=== PATIENT | male | born 1960 | race Caucasian/White ===

== ENCOUNTER → 2021-07-18 11:13 | Outpatient (CLI) | payer OTHER, SELFPAY ==
[2021-07-18 12:39] LABS: Absolute Lymphocyte Count 2.47 X10^3/uL (0.83-4.51); Basophil# 0.04 X10^3/uL; Basophil% 0.5 % (0-1); Eosinophil# 0.39 X10^3/uL; Eosinophils% 5.3 % (0-5); Hematocrit 41.4 % (40-54); Hemoglobin 13.5 g/dL (13.0-16.5); Lymphocyte # 2.47 X10^3/ul (0.83-4.51); Lymphocyte % 33.4 % (19-41); Mean Corp Hgb Conc 32.6 g/dL (32-36); Mean Corpuscular Hgb 30.4 pg (27.0-32.0); Mean Corpuscular Volume 93.2 fL (80-94); Mean Platelet Vol. 10.4 fl (6.2-12.0); Monocyte# 0.47 X10^3/uL; Monocyte% 6.4 % (0-10); NRBC Flagged by Analyzer 0 % (0-5); Platelet Count 290 K/mm3 (150-450); RBC Distribution Width CV 12.5 % (11.6-14.6); RBC Distribution Width SD 43.1 fl (35.1-43.9); Red Blood Count 4.44 M/mm3 (4.6-6.2); White Blood Count 7.4 K/mm3 (4.4-11.0)
[2021-07-18 13:04] LABS: Vitamin D,25 Hydroxy 22.2 ng/mL
[2021-07-18 13:13] LABS: AST(SGOT) 22 U/L (15-37); Alanine Aminotransfer ALT/SGPT 31 U/L (16-61); Albumin, Serum 3.8 g/dL (3.2-5.0); Alkaline Phosphatase 40 U/L (45-117); Anion Gap 7 (5-15); BUN 19 mg/dL (7-18); BUN/Creat Ratio 18.3 RATIO (10-20); Calcium,Total 9.4 mg/dL (8.5-10.1); Chloride 107 mmol/L (98-107); Cholesterol 234 mg/dL (200); Creatinine, Serum 1.04 mg/dL (0.70-1.30); EST Glomerular Filtration Rate 78 mL/min (>60); Est Glom Filt Rate - Afr Amer 94 mL/min (>60); Free T3 2.8 pg/mL (2.18-3.98); Globulin 3.8 g/dL (2.2-4.2); Glucose 83 mg/dL (74-106); High Density Lipoprotein 53 mg/dL; PSA,Total - Annual Screen 1.45 ng/mL (0.00-4.00); Potassium 4.1 mmol/L (3.5-5.1); Protein, Total 7.6 g/dL (6.4-8.2); Sodium Level 142 mmol/L (136-145); T4 Free Direct 0.91 ng/dL (0.76-1.46); Triglycerides 155 mg/dL; Very Low Density Lipoprotein 31 mg/dL (5-40)
[2021-07-18 13:29] LABS: Hemoglobin A1c 6.1 % (3.8-5.6)
== END ==
PROVIDERS: PCP Internal Medicine; Referring Provider Internal Medicine; Visit Provider Internal Medicine
DX: E55.9 Vitamin D deficiency, unspecified (principal); E04.9 Nontoxic goiter, unspecified; E78.1 Pure hyperglyceridemia; E78.5 Hyperlipidemia, unspecified; I10 Essential (primary) hypertension; Z12.5 Encounter for screening for malignant neoplasm of prostate
CPT/HCPCS: 36415; 80053; 80061; 82306; 83036; 84153; 84439; 84443; 84481; 85025; G0103

== ENCOUNTER → 2021-08-13 07:30 | Outpatient (CLI) | payer OTHER, SELFPAY ==
--- NOTE | 2021-08-13 07:31 | US_ITS ---
STUDY: THYROID ULTRASOUND REASON FOR EXAM: Male, 61 years old. Right thyroid enlargement TECHNIQUE: Ultrasound evaluation of the thyroid was performed with real-time and static hernandez-scale imaging. COMPARISON: None. FINDINGS: RIGHT LOBE: The right lobe of the thyroid gland measures 5.5 x 4.8 x 3.7 cm. There is a heterogeneous echotexture. Nodule 1:51 x 30 x 45 mm solid isoechoic water than tall ill-defined marginated nodule with no echogenic foci (TR 3) throughout the right lobe and ultrasound-guided biopsy is recommended. LEFT LOBE: The left lobe of the thyroid gland measures 5.2 x 1.7 x 1.4 cm. There is a heterogeneous echotexture. Nodule 2:6 x 9 x 6 mm solid hypoechoic wider than tall ill-defined marginated nodule with no echogenic foci (TR 4) in the lateral left lobe consistent with an adenoma. Nodule 3:10 x 5 x 6 mm solid hypoechoic wider than tall ill-defined margin nodule in no echogenic foci (TR 4) in the inferior left lobe and follow-up ultrasound is recommended in one year. ISTHMUS: The isthmus measures 8 mm thick. . The regional lymph nodes are normal. US/Thyroid IMPRESSION: Thyroiditis with a 51 mm dominant nodule right lobe for which ultrasound-guided biopsy is recommended. Follow-up ultrasound is recommended one year as well. Electronically Signed: Bharath Villagran MD at 8:27 EDT Tel , Service support ,
== END ==
PROVIDERS: PCP Internal Medicine; Referring Provider Internal Medicine; Visit Provider Internal Medicine
DX: E04.9 Nontoxic goiter, unspecified (principal); E78.5 Hyperlipidemia, unspecified; I10 Essential (primary) hypertension
CPT/HCPCS: 76536

== ENCOUNTER → 2021-09-19 16:36 | Outpatient (CLI) | payer OTHER, SELFPAY ==
--- NOTE | 2021-09-19 | ASPS_PTH ---
PATIENT: MIGUELANGEL GALLAGHER LOC: [facility] U#:[id number] AGE/SX: 65/M ROOM: RE09/19/[address]: Dr. Arden Alvares MD : 1960 BED: DIS: SPEC #: [id number] RECD: 09/19/21 16:18 STATUS: SEBASTIÁN PEREZ #: [id number] DANIAL: 09/19/21 00:[address]: Arden Alvares DEPT: CYTOLOGY RECD BY: Alonso Diamond ENTERED: 09/20/21 08:51 SP TYPE: ASPIRATION OTHR DR: Dr. Aminata Sams MD Tissues: Thyroid gland, NOS Procedures: Special Stain Group II Cytology Other HEADER OPERATION: Right thyroid fine needle aspiration PRE-OP DIAGNOSIS: Right thyroid nodules TISSUE SUBMITTED: Right thyroid slides DIAGNOSIS CYTOLOGY Right thyroid nodule, FNA (smears): Consistent with benign follicular/colloid nodule. Adequate for evaluation. See comment. SJ:maria del carmen 09/21/2021 COMMENT Correlation with clinical, radiologic findings and appropriate follow up are necessary. CYTOLOGY STUDY Slides are reviewed. CYTOLOGY GROSS Received are eight smears labeled with the patient's name and designated per the requisition as right thyroid nodule. Submitted for staining. / maria del carmen 09/20/2021 TC:5 CPT: 12728
== END ==
PROVIDERS: PCP Internal Medicine; Visit Provider Surgery
DX: E04.2 Nontoxic multinodular goiter (principal)
CPT/HCPCS: 88161; 88313

== ENCOUNTER → 2021-10-16 06:22 | Outpatient (CLI) | payer OTHER, SELFPAY ==
--- NOTE | 2021-10-16 12:43 | STRESSREP_ITS ---
Stress Test Report Exercise myocardial perfusion stress test. Preoperative cardiac evaluation 61-year-old man. Medications hydrochlorothiazide losartan fenofibrate simvastatin. Stress protocol: Resting EKG demonstrates normal sinus rhythm with a rate of 63 bpm normal intervals are noted resting blood pressure is 152/92 mmHg. The patient exercised according to regular Tom protocol for total duration of 6 minutes. The maximum heart rate attained was 203 bpm which appeared to be a short run of supraventricular tachycardia. Patient reverted back into sinus rhythm with sinus tachycardia. At rest there were no ST or T wave changes noted suggest ischemia and at peak exercise upsloping ST changes were noted with did not meet the criteria for ischemia. No clinical angina was noted. The peak blood pressure was 240/98 mmHg which was a hypertensive response to exercise. Rate- pressure product was 33,200. Myocardial perfusion protocol. 13.6 mCi of technetium 99m sestamibi was injected at rest. Patient exercised according to regular Tom protocol for 6 minutes and at peak exercise 44.2 mCi of technetium 99m sestamibi was injected stress images were obtained stress and rest images were reconstructed and compared in the short axis vertical long and horizontal long axis. Gated images were also obtained. Perfusion SPECT analysis: Review of the stress images demonstrate normal uptake of tracer noted in all areas of the myocardium. The resting images similarly demonstrate normal uptake of tracer noted in all areas of the myocardium. No areas of reversibility are noted to suggest ischemia and no previous infarct is noted. Gated SPECT analysis: The gated ejection fraction is 55%. Conclusion: Normal exercise myocardial perfusion stress test at a moderate workload. Preserved ejection fraction.
== END ==
PROVIDERS: PCP Internal Medicine; Referring Provider Internal Medicine; Visit Provider Internal Medicine
DX: Z01.810 Encounter for preprocedural cardiovascular examination (principal); E78.5 Hyperlipidemia, unspecified; I10 Essential (primary) hypertension; E78.1 Pure hyperglyceridemia
CPT/HCPCS: 78452; 93017; A9500; A4216

== ENCOUNTER → 2023-04-18 | Outpatient (CLI) | payer OTHER, SELFPAY ==
[2023-04-18 08:41] LABS: Absolute Lymphocyte Count 2.37 X10^3/uL (0.83-4.51); Absolute Neutrophil Count 4.4 X10^3/uL (2.0-7.7); Basophil# 0.04 X10^3/uL; Basophil% 0.5 % (0-1); Eosinophil# 0.32 X10^3/uL; Eosinophils% 4.2 % (0-5); Hematocrit 41.4 % (40-54); Hemoglobin 13.9 g/dL (13.0-16.5); Lymphocyte # 2.37 X10^3/ul (0.83-4.51); Lymphocyte % 30.9 % (19-41); Mean Corp Hgb Conc 33.6 g/dL (32-36); Mean Corpuscular Hgb 30.6 pg (27.0-32.0); Mean Corpuscular Volume 91.2 fL (80-94); Monocyte# 0.52 X10^3/uL; Monocyte% 6.8 % (0-10); NRBC Flagged by Analyzer 0 % (0-5); Neutrophil # 4.38 X10^3/uL (2.7-7.7); Neutrophil % 57.2 % (47-70); Platelet Count 269 K/mm3 (150-450); RBC Distribution Width CV 12.6 % (11.6-14.6); RBC Distribution Width SD 41.7 fl (35.1-43.9); Red Blood Count 4.54 M/mm3 (4.6-6.2); White Blood Count 7.7 K/mm3 (4.4-11.0)
[2023-04-18 09:22] LABS: ALB/GLOB Ratio 1.1 RATIO (0.9-2.4); AST(SGOT) 24 U/L (15-37); Alanine Aminotransfer ALT/SGPT 29 U/L (16-61); Albumin, Serum 3.7 g/dL (3.2-5.0); Alkaline Phosphatase 38 U/L (45-117); Anion Gap 4 (5-15); BUN 17 mg/dL (7-18); BUN/Creat Ratio 15.2 RATIO (10-20); Chloride 107 mmol/L (98-107); Cholesterol 178 mg/dL (200); Creatinine, Serum 1.12 mg/dL (0.70-1.30); EST Glomerular Filtration Rate 71 mL/min (>60); Est Glom Filt Rate - Afr Amer 86 mL/min (>60); Free T3 2.5 pg/mL (2.18-3.98); Globulin 3.4 g/dL (2.2-4.2); Glucose 104 mg/dL (74-106); High Density Lipoprotein 52 mg/dL; PSA,Total - Annual Screen 1.42 ng/mL (0.00-4.00); Potassium 3.6 mmol/L (3.5-5.1); Protein, Total 7.1 g/dL (6.4-8.2); Sodium Level 137 mmol/L (136-145); T4 Free Direct 0.92 ng/dL (0.76-1.46); Thyroid Stim Hormone (TSH) 1.54 uIU/mL (0.358-3.74); Triglycerides 107 mg/dL; Very Low Density Lipoprotein 21 mg/dL (5-40)
== END | disposition home or self-care (01) ==
PROVIDERS: PCP Internal Medicine; Referring Provider Internal Medicine; Visit Provider Internal Medicine
DX: I10 Essential (primary) hypertension (principal); E78.1 Pure hyperglyceridemia; E78.5 Hyperlipidemia, unspecified; Z13.220 Encounter for screening for lipoid disorders; E55.9 Vitamin D deficiency, unspecified; Z12.5 Encounter for screening for malignant neoplasm of prostate; E04.1 Nontoxic single thyroid nodule; R73.9 Hyperglycemia, unspecified
CPT/HCPCS: 36415; 80053; 80061; 82306; 83036; 83525; 84153; 84439; 84443; 84481; 85025; G0103

== ENCOUNTER → 2024-07-27 | Outpatient (CLI) | payer OTHER, SELFPAY ==
[2024-07-27 12:36] LABS: Absolute Lymphocyte Count 1.81 X10^3/uL (0.83-4.51); Absolute Neutrophil Count 4.9 X10^3/uL (2.0-7.7); Basophil# 0.04 X10^3/uL; Basophil% 0.5 % (0-1); Eosinophil# 0.31 X10^3/uL; Eosinophils% 4.1 % (0-5); Hematocrit 44.3 % (40-54); Hemoglobin 14.4 g/dL (13.0-16.5); Lymphocyte # 1.81 X10^3/ul (0.83-4.51); Lymphocyte % 24.2 % (19-41); Mean Corp Hgb Conc 32.5 g/dL (32-36); Mean Corpuscular Hgb 30.4 pg (27.0-32.0); Mean Corpuscular Volume 93.5 fL (80-94); Mean Platelet Vol. 10.7 fl (6.2-12.0); Monocyte# 0.44 X10^3/uL; Monocyte% 5.9 % (0-10); NRBC Flagged by Analyzer 0 % (0-5); Neutrophil # 4.87 X10^3/uL (2.7-7.7); Platelet Count 303 K/mm3 (150-450); RBC Distribution Width CV 12.3 % (11.6-14.6); RBC Distribution Width SD 42.7 fl (35.1-43.9); Red Blood Count 4.74 M/mm3 (4.6-6.2); White Blood Count 7.5 K/mm3 (4.4-11.0)
[2024-07-27 12:49] LABS: Vitamin B12 316 pg/mL (211-911); Vitamin D,25 Hydroxy 31.4 ng/mL
[2024-07-27 13:13] LABS: Cholesterol 189 mg/dL (200); Free T3 2.7 pg/mL (2.18-3.98); High Density Lipoprotein 56 mg/dL; PSA,Total - Annual Screen 1.46 ng/mL (0.00-4.00); Triglycerides 74 mg/dL; Very Low Density Lipoprotein 15 mg/dL (5-40)
[2024-08-05 15:08] LABS: Testosterone, % Free 2.13 % (1.50-4.20); Testosterone, Free 8.29 ng/dL (5.00-21.00); Testosterone, Total 389 ng/dL (264-916)
== END | disposition home or self-care (01) ==
LOC: BIMLAB 08:07
PROVIDERS: PCP Internal Medicine; Referring Provider Internal Medicine; Visit Provider Internal Medicine
DX: Z13.220 Encounter for screening for lipoid disorders (principal); I10 Essential (primary) hypertension; E78.5 Hyperlipidemia, unspecified; E88.810 Metabolic syndrome; E04.1 Nontoxic single thyroid nodule; F52.0 Hypoactive sexual desire disorder; E55.9 Vitamin D deficiency, unspecified; Z12.5 Encounter for screening for malignant neoplasm of prostate; E53.8 Deficiency of other specified B group vitamins
CPT/HCPCS: 36415; 80061; 82306; 82607; 83735; 84153; 84402; 84403; 84439; 84443; 84481; 85025; G0103

== ENCOUNTER → 2024-07-28 | Outpatient (CLI) | payer OTHER, SELFPAY ==
--- NOTE | 2024-07-28 16:31 | US_ITS ---
EXAM: US SOFT TISSUES HEAD AND NECK, THYROID CLINICAL INDICATION: Thyroid nodules. -- Please make comparison with prior thyroid ultrasou TECHNIQUE: Grayscale and color doppler imaging was performed of the thyroid gland. COMPARISON: 08/13/2021. FINDINGS: LEFT THYROID LOBE: Solid nodule measuring 0.7 x 0.7 x 0.6 cm in the superior aspect of the left lobe posteriorly is hypoechoic, taller than wide, irregular without echogenic foci. It appears larger than on the previous examination where it was measured at about 4 mm. Solid nodule measuring 1.2 x 0.6 x 0.5 cm mid left lobe of the thyroid laterally is isoechoic, wider than tall, smooth, without echogenic foci. Solid nodule measuring 1.1 x 0.7 x 0.7 cm inferior left lobe of the thyroid is solid, heterogeneous hypoechoic, wider than tall, smooth, without echogenic foci. It appears stable since the prior exam. The left lobe of the thyroid lobe measures 6.0 x 1.5 x 1.7 cm. RIGHT THYROID LOBE: Heterogeneous solid nodule measuring 6.5 x 4.4 x 3.5 cm right lobe of the thyroid is isoechoic, wider than tall, relatively smooth without echogenic foci. It does not appear to be significantly changed compared with the prior exam. The right lobe of the thyroid lobe measures 8.1 x 5.1 x 3.8 cm. ISTHMUS: Unremarkable. No thyroid nodules are present. The isthmus measures 0.5 cm in thickness. US/Thyroid IMPRESSION: 1. Heterogeneous solid nodule measuring 6.5 x 4.4 x 3.5 cm right lobe of the thyroid is isoechoic, wider than tall, relatively smooth without echogenic foci. It does not appear to be significantly changed compared with the prior exam. TI-RADS points: 3. TI-RADS category: TR3. This nodule is mildly suspicious. Recommend FNA evaluation if this has not already been performed. 2. Solid nodule measuring 0.7 x 0.7 x 0.6 cm in the superior aspect of the left lobe posteriorly is hypoechoic, taller than wide, irregular without echogenic foci. It appears larger than on the previous examination where it was measured at about 4 mm. TI-RADS points: 8. TI-RADS category: TR5. This nodule is highly suspicious. In view of the fact that it is increased in size consider FNA evaluation versus yearly follow-up for at least five years. 3. Solid nodule measuring 1.2 x 0.6 x 0.5 cm mid left lobe of the thyroid laterally is isoechoic, wider than tall, smooth, without echogenic foci. It appears stable compared with the prior exam. TI-RADS points: 3. TI-RADS category: TR3. This nodule is mildly suspicious but no FNA or follow-up is necessary given the small size of this nodule. 4. Solid nodule measuring 1.1 x 0.7 x 0.7 cm inferior left lobe of the thyroid is solid, heterogeneous hypoechoic, wider than tall, smooth, without echogenic foci. It appears stable since the prior exam. TI-RADS points: 4. TI-RADS category: TR4. This nodule is moderately suspicious. Recommend follow-up thyroid ultrasound in 2 years. Electronically Signed: Bob Ochoa MD at 2:54 EDT ,
== END | disposition home or self-care (01) ==
LOC: US 16:30
PROVIDERS: PCP Internal Medicine; Referring Provider Internal Medicine; Visit Provider Internal Medicine
DX: E04.1 Nontoxic single thyroid nodule (principal)
CPT/HCPCS: 76536

== ENCOUNTER → 2025-06-21 | Outpatient (CLI) | payer OTHER, SELFPAY ==
--- NOTE | 2025-06-21 09:11 | RAD_ITS ---
EXAM: XR Left Knee Complete, 4 or More Views CLINICAL INDICATION: BILATERAL KNEE OSTEOARTHRITIS/KNEE PAIN TECHNIQUE: Four or more views of the left knee. COMPARISON: No relevant prior studies available. FINDINGS: BONES/JOINTS: Unremarkable. No acute fracture. No dislocation. SOFT TISSUES: Unremarkable. RAD/Knee 4 or More Views IMPRESSION: No acute fracture. Reading [facility]
--- NOTE | 2025-06-21 09:11 | RAD_ITS ---
PROCEDURE: KNEE 4 OR MORE VIEWS 06/21/2025 REASON FOR EXAM: RIGHT KNEE MEDIAL PAIN/SWELLING TECHNIQUE: Procedure Code: RADKN Modality: DX Procedure: KNEE 4 OR MORE VIEWS Laterality: Right COMPARISON: Contralateral knee FINDINGS: Bones: No displaced fracture. Subchondral lucency with minimal depression is seen at the articular surface of the medial femoral condyle. No fragmentation is seen. Joints: Tricompartment degenerative change with mild marginal spurring. Enthesopathy along the dorsal aspect of the patella and a large enthesophyte is seen at the tibial tuberosity. Effusion: Small suprapatellar joint effusion. Soft tissues: Soft tissues are unremarkable. RAD/Knee 4 or More Views IMPRESSION: 1. Osteochondral injury of the medial femoral condyle at the articular surface . Correlate with medial pain. Consider MRI if appropriate. Reading [id number]
== END | disposition home or self-care (01) ==
LOC: RAD 09:10
PROVIDERS: PCP Internal Medicine; Referring Provider Internal Medicine; Visit Provider Internal Medicine
DX: M17.0 Bilateral primary osteoarthritis of knee (principal); S83.8X1A Sprain of other specified parts of right knee, initial encounter; M25.561 Pain in right knee; X58.XXXA Exposure to other specified factors, initial encounter
CPT/HCPCS: 73564

== ENCOUNTER → 2025-07-02 | Outpatient (CLI) | payer OTHER, SELFPAY ==
--- OUTSIDE RECORDS SUMMARY | 2025-07-02 07:29 | XMS RPT_ITS | CCD ---
Author Organization [facility] CliniSyil Care Team Providers Care Assembly Manager Name Role Phone Jeanine Rock Unavailable Aamir García Unavailable Tia Rockhleen Unavailable Gravius, Cary Unavailable Unavailable Manchak, Zelda Unavailable Unavailable Messenger, Omayra Unavailable Unavailable Mere Longfer Unavailable Unavailable Unavailable Unavailable Messenger Omayra Unavailable Unavailable Shweta BREWER Jeanine Unavailable Dr. aAmir García Unavailable [phone] Shweta Jeanine Unavailable Gravius SHAG TRUCK DRIVER, Cary Unavailable Unavailable Manchak SHAG TRUCK DRIVER, Zelda Unavailable Unavailable Messenger RN, Omayra Unavailable Unavailable Ethan Luana Unavailable Unavailable Unavailable Unavailable Shweta DO Jeanine Unavailable Dr. Rich Sams Primary Care Provider Dr. Rich Sams Attending Provider RICH SAMS MD Attending Unavailable RICH SAMS MD Primary Care Unavailable RICH SAMS MD Primary Care Physician [phone] Dr. Rich Sams MD Primary Care Provider Dr. Rich Sams MD Referring Provider Cheyenne Clarke Attending Provider Romero Lee Attending Provider Dr. Rich Sams MD Primary Care Provider [phone] Dr. Rich Sams MD Referring Provider Dr. Rich Sams MD Attending Provider Dr. Jose See DO Attending Provider Romero Lee Attending Unavailable Flaquita, Rich Primary Care Unavailable Flaquita, Rich Referring Unavailable Flaquita, Rich Primary Care Unavailable Cheyenne Clarke Attending Unavailable Flaquita, Rich Referring Unavailable Flaquita, Rich Primary Care Unavailable FlaquitaRich Attending Unavailable Flaquita, Rich Primary Care Unavailable Bob Haley Attending Unavailable Flaquita, Rich Referring Unavailable Flaquita, Rich Attending Unavailable Flaquita, Rich Primary Care Unavailable Flaquita, Rich Primary Care Unavailable Flaquita, Rich Attending Unavailable Flaquita, Rich Referring Unavailable Flaquita, Rich Referring Unavailable Flaquita, Rich Primary Care Unavailable Flaquita, Rich Attending Unavailable Flaquita, Rich Primary Care Unavailable Flaquita, Rich Attending Unavailable Flaquita, Rich Referring Unavailable Flaquita, Rich Primary Care Unavailable FlaquitaDottieen Attending Unavailable Flaquita, Rich Referring Unavailable Flaquita, Rich Referring Unavailable Flaquita, Rich Primary Care Unavailable Jose See Attending Unavailable Flaquita, Rich Primary Care Unavailable FlaquitaRich garrett Attending Unavailable Allergies Allergy Classification Reported Allergen(s) Allergy Type Date of Onset Reaction(s) Facility Aspirin (1 source) Aspirin; Translations: [Aspirin (Salicylates)] Drug Allergy [facility]; [facility] Work Phone: (7 sources) Aspirin; Translations: [Aspirin (Salicylates)] Drug Allergy [facility] Work Phone: (8 sources) torodol Allergy to substance (finding) [facility] Work Phone: (5 sources) Aspirin Drug Allergy 3 Swelling [facility] (1 source) Aspirin Drug Allergy 5 [facility] Repository Medications Current Medications Medication Drug Class(es) Dates Sig (Normalized) Sig (Original) cholecalciferol 0.01 mg oral capsule (4 sources) Vitamin D Start: 4 take 1 capsule by mouth once daily hydroCHLOROthiazide 25 mg oral tablet (20 sources) Thiazide Diuretic Start: 09-02-202 5 Hydrochlorothiazide 25 mg tablet Active 12.5 mg PO EVERY MORNING 30 0 June 21, 2025 12:00am Start: 12-05-2020 End: 07-15-2024 take 1 tablet by mouth once daily Hydrochlorothiazide 12.5 mg tablet Discontinued 12.5 mg PO DAILY 90 3 April 17, 2023 3:50pm July 15, 2024 3:59pm Start: 09-06-2020 take 1 tablet by betsy th once daily hydroCHLOROthiazide 12.5 MG Oral Tablet 1 (one) Tablet daily for 90 days Quantity: 90 {Tablet} Refills: 0 Ordered: 06-Sep-2020 Cary Mathew CMA Start : 06-Sep-2020 Active Comments: Mail order. Comment on above: Mail order. losartan potassium 50 mg oral tablet (20 sources) Angiotensin 2 Receptor Napoleon Start: 06-21-2025 take 2 tablets by mouth once daily Losartan 50 mg tablet Active 100 mg PO DAILY 90 3 June 21, 2025 8:31am Start: 03-05-2021 End: 06-21-2025 take 1 tablet by mouth once daily Losartan 50 mg tablet Discontinued 50 mg PO DAILY 90 3 June 15, 2025 12:40pm June 21, 2025 8:32am Start: 09-06-2020 take 1 tablet by betsy th once daily Losartan Potassium 50 MG Oral Tablet 1 (one) Tablet daily for 90 days Quantity: 90 {Tablet} Refills: 1 Ordered: 06-Sep-2020 Jeanine Rock DO, DO, Kathleen Start : 06-Sep-2020 Active Comments: Mail order. Comment on above: Mail order. oxymetazoline hydrochloride 0.5 mg/ml nasal spray (4 sources) Start: 02-12-2025 Oxymetazoline (12 Hour Nasal [place]) 0.05 % spray,non-aerosol Active 2 NMA INTRANASAL Q12H as needed February 12, 2025 12:00am Completed/Discontinued Medications Medication Drug Class(es) Dates Sig (Normalized) Sig (Original) acetaminophen 500 mg / HYDROcodone bitartrate 5 mg oral tablet (8 sources) Opioid Agonist Start: 05-20-2007 End: 06-01-2007 take 1-2 tablets by mouth every six hours as needed VICODIN, 5-500MG (Oral Tablet) 1-2 Tablet q6 hours prn for 0 days Quantity: 14 {Tablet} Refills: 0 Ordered: 20-May-2007 Scarlet Tafoya Start : 20-May-2007 End : 01-Jun-2007 Inactive [id number] 200 actuat albuterol 0.09 mg/actuat metered dose inhaler (16 sources) beta2-Adrenergic Agonist Start: 01-28-2014 End: 11-08-2015 PROAIR HFA, 108 (90 Base)MCG/ACT (Inhalation Aerosol Solution) 2 (two) Aerosol Soln Aerosol Soln puffs 4 x a day as needed for 0 days Quantity: 1 {Inhaler} Refills: 3 Ordered: 08-Nov-2015 Omayra Medina RN Start : 28-Jan-2014 End : 08-Nov-2015 Inactive Comments: Medication taken as needed. Start: 01-28-2014 End: 11-08-2015 PROAIR HFA, 108 (90 Base)MCG /ACT (Inhalation Aerosol Solution) 2 (two) Aerosol Soln Aerosol Soln puffs 4 x a day as needed for 0 days Quantity: 1 {Inhaler} Refills: 3 Ordered: 08-Nov-2015 Omayra Medina RN Start : 28-Jan-2014 End : 08-Nov-2015 Inactive Comments: Medication taken as needed. Start: 07-23-2011 End: 08-02-2011 PROVENTIL HFA, 108 (90 Base) MCG/ACT (Inhalation Aerosol Solution) 2 (two) Aerosol Soln q 6 hr prn for 10 days Quantity: 1 {Aerosol_Soln} Refills: 0 Ordered: 23-Jul-2011 Jeanine Rock DO, DO, Kathleen Start : 23-Jul-2011 End : 02-Aug-2011 Inactive Start: 07-23-2011 End: 08-02-2011 PROVENTIL HFA, 108 (90 Base) MCG/ACT (Inhalation Aerosol Solution) 2 (two) Aerosol Soln q 6 hr prn for 10 days Quantity: 1 {Aerosol_Soln} Refills: 0 Ordered: 23-Jul-2011 Jeanine Rock DO, DO, Kathleen Start : 23-Jul-2011 End : 02-Aug-2011 Inactive Comment on above: Medication taken as needed. amoxicillin 875 mg oral tablet (4 sources) Penicillin-class Antibacterial Start: 5 End: 5 take 1 tablet by mouth twice daily Amoxicillin 875 mg tablet Discontinued 875 mg PO TWICE A DAY 28 0 March 07, 2025 12:00am June 15, 2025 9:17am amoxicillin 875 mg / clavulanate 125 mg oral tablet (12 sources) Penicillin-class Antibacterial Start: 5 End: 5 Amoxicillin-Pot Clavulanate 875-125 mg tablet Discontinued 1 {tbl} PO Q12H 20 10 0 February 12, 2025 12:00am February 21, 2025 12:00am February 22, 2025 12:07am Start: 01-30-2016 End: 05-12-2017 take 1 tablet by mouth twice daily Augmentin 875-125 MG Oral Tablet 1 (one) Tablet bid for 0 days Quantity: 28 {Tablet} Refills: 0 Ordered: 12-May-2017 Angeles Tariq RN Start : 30-Jan-2016 End : 12-May-2017 Inactive azelastine hydrochloride 0.137 mg/actuat metered dose nasal spray (8 sources) Histamine-1 Receptor Antagonist Start: 07-23-2011 End: 11-08-2015 ASTELIN, 137MCG/SPRAY (Nasal Solution) 2 (two) Solution qd- each nostril for 0 days Quantity: 1 {Solution} Refills: 0 Ordered: 08-Nov-2015 Omayra Medina RN Start : 23-Jul-2011 End : 08-Nov-2015 Discontinued Comments: This order discontinued per [facility]. Comment on above: This order discontin ued per [facility]. benzonatate 200 mg oral capsule (8 sources) Non-narcotic Antitussive Start: 12-05-2009 End: 01-20-2012 take 1 capsule by mouth three times daily as needed TESSALON, 200MG (Oral Capsule) 1 (one) Capsule tid prn for 0 days Quantity: 30 {Capsule} Refills: 0 Ordered: 20-Jan-2012 Omayra Medina RN Start : 05-Dec-2009 End : 20-Jan-2012 Inactive clarithromycin 500 mg oral tablet (8 sources) Macrolide Antimicrobial Start: 01-28-2014 End: 02-07-2014 take 1 tablet by mouth twice daily BIAXIN, 500MG (Oral Tablet) 1 Tablet bid for 10 days Quantity: 20 {Tablet} Refills: 0 Ordered: 28-Jan-2014 Marlen Townsend DO Start : 28-Jan-2014 End : 07-Feb-2014 Inactive fenofibrate 145 mg oral tablet (20 sources) Peroxisome Proliferator Receptor alpha Agonist Start: 05-14-2017 End: 06-15-2025 take 1 tablet by mouth once daily Fenofibrate Nanocrystallized 145 mg tablet Discontinued 145 mg PO DAILY 90 3 May 17, 2024 4:25pm June 15, 2025 12:40pm Comment on above: Mail order. homatropine methylbromide 0.3 mg/ml / HYDROcodone bitartrate 1 mg/ml oral solution (8 sources) Opioid Agonist, Cholinergic Muscarinic Agonist Start: 12-05-2009 End: 12-15-2009 HYCODAN, 5-1.5MG/5ML (Oral Syrup) 2 (two) Syrup q 6 hr prn for 10 days Quantity: 90 {Milliliter} Refills: 0 Ordered: 26-Feb-2010 Jeanine Rock DO, DO, Kathleen Start : 05-Dec-2009 End : 15-Dec-2009 Inactive Comments: ninety Comment on above: ninety hydroCHLOROthiazide 12.5 mg / losartan potassium 50 mg oral tablet (13 sources) Thiazide Diuretic, Angiotensin 2 Receptor Napoleon Start: 05-14-2017 End: 07-19-2021 Losartan-Hydrochloro thiazide 1 EACH tablet Discontinued 1 {tbl} PO DAILY May 14, 2017 12:00am July 19, 2021 4:14pm Start: 05-14-2017 End: 07-19-2021 take 1 tablet by mouth once daily Losartan-Hydrochlorothiazide Discontinue d 1 TABLET PO DAILY May 14, 2017 12:00am July 19, 2021 4:14pm Comment on above: NEEDS APPT FOR MORE REFILLS levoFLOXacin 750 mg oral tablet (5 sources) Quinolone Antimicrobial Start: 05-14-20 17 End: 07-18-20 21 take 1 tablet by mouth once daily Levofloxacin 750 MG tablet Discontinued 750 mg PO DAILY 7 0 May 14, 2017 12:00am July 18, 2021 10:53am metaxalone 800 mg oral tablet (8 sources) Start: 05-20-20 07 End: 06-01-20 take 1 tablet by mouth three times daily as needed SKELAXIN, 800MG (Oral Tablet) 1 (one) Tablet TID/prn for 0 days Quantity: 20 {Tablet} Refills: 0 Ordered: 20-May-2007 Scarlet Tafoya Start : 20-May-2007 End : 01-Jun-2007 Discontinued naproxen 500 mg oral tablet (8 sources) Nonsteroidal Anti-inflammatory Drug Start: 05-20-20 07 End: 06-01-20 07 take 1 tablet by mouth twice daily as needed NAPROSYN, 500MG (Oral Tablet) 1 (one) Tablet BID/PRN for 0 days Quantity: 30 {Tablet} Refills: 0 Ordered: 20-May-2007 Scarlet Tafoya Start : 20-May-2007 End : 01-Jun-2007 Discontinued rosuvastatin calcium 10 mg oral tablet (8 sources) HMG-CoA Reductase Inhibitor Start: 09-01-20 12 End: 06-25-20 13 take 1 tablet by mouth once daily CRESTOR, 10MG (Oral Tablet) 1 Tablet QD for 0 days Quantity: 90 {Tablet} Refills: 3 Ordered: 25-Jun-2013 Omayra Medina RN Start : 01-Sep-2012 End : 25-Jun-2013 Inactive simvastatin 20 mg oral tablet (20 sources) HMG-CoA Reductase Inhibitor Start: 10-03-20 End: 06-15-20 25 take 1 tablet by mouth at bedtime Simvastatin 20 mg tablet Discontinued 20 mg PO AT BEDTIME 90 3 May 17, 2024 4:25pm June 15, 2025 12:40pm Start: 05-14-2017 End: 07-18-2021 take 1 tablet by mouth once daily Simvastatin 80 MG tablet Discontinued 80 mg PO DAILY May 14, 2017 12:00am July 18, 2021 10:54am Comment on above: Mail order. sulfacetamide sodium 100 mg/ml ophthalmic solution (8 sources) Sulfonamide Antibacterial Start: 01-30-2016 End: 05-22-2017 Bleph-10 10 % Ophthalmic Solution 1 (one) Solution Solution 1-2 drops both eyes every 3 hours for 2 days then every 6 hours for 5 days for 0 days Quantity: 1 {Bottle} Refills: 0 Ordered: 22-May-2017 Omayra Medina RN Start : 30-Jan-2016 End : 22-May-2017 Inactive vitamin b12 1 mg/ml injectable solution (8 sources) Vitamin B12 Start: 01-14-2014 End: 11-08-2015 CYANOCOBALAMIN, 1000MCG/ML (Injection Solution) 1 Solution q mo for 30 days Quantity: 1 {bottle(s)} Refills: 0 Ordered: 08-Nov-2015 Omayra Medina RN Start : 14-Jan-2014 End : 08-Nov-2015 Inactive Start: 01-14-2014 End: 11-08-2015 CYANOCOBALAMIN, 1000MCG/ML ( Injection Solution) 1 Solution q mo for 30 days Quantity: 1 {bottle(s)} Refills: 0 Ordered: 08-Nov-2015 Omayra Medina LPN Start : 14-Jan-2014 End : 08-Nov-2015 Inactive Problems Active Problems Problem Classification Problem Date Documented Date Episodic/Chronic Acute bronchitis (8 sources) Acute bronchitis; Translations: [Bronchitis, acute] 09-29-2019 Episodic Administrative/socia l admission (4 sources) Medical examinations/reports status; Translations: [Annual physical exam] 09-29-2019 Episodic Chronic obstructive pulmonary disease and bronchiectasis (20 sources) Chronic obstructive pulmonary disease and bronchiectasis Deficiency and other anemia (20 sources) Anemia; Translations: [Anemia, unspecified] Resolved: 3 09-04-2015 Episodic Comment on above: IMPROVED --13.9 Deficiency and other anemia (3 sources) Megaloblastic anemia due to vitamin B>12< deficiency; Translations: [Other vitamin B12 deficiency anemia] 09-29-2019 Episodic Deficiency and other anemia (5 sources) Nutritional anemia; Translations: [Other vitamin B12 deficiency anemia] 09-27-2020 Episodic Deficiency and other anemia (20 sources) Deficiency and other anemia Diabetes mellitus without complication (7 sources) Type 2 diabetes mellitus; Translations: [Type II diabetes mellitus, well controlled] 09-29-2019 Chronic Diabetes mellitus without complication (20 sources) Abnormal glucose tolerance test; Translations: [Hyperglycemia] 09-29-2019 Episodic Diabetes mellitus without complication (12 sources) Diabetes mellitus without complication Diseases of white blood cells (20 sources) Leukocytosis; Translations: [Leukocytosis, unspecified type] Resolved: 9 09-08-2015 Chronic Disorders of lipid metabolism (20 sources) Hypercholesterolemia; Translations: [Hypertriglyceridemia] Onset: 4 09-29-2019 Chronic Essential hypertension (20 sources) Benign essential hypertension; Translations: [Hypertensive disorder] Onset: 5 01-30-2016 Chronic Comment on above: uncontrolldd- diet w t loss and exercise favian encourage compliance with bp meds Fever of unknown origin (20 sources) Fever with chills; Translations: [Fever] Resolved: 9 09-29-2019 Episodic Comment on above: exposure to [place] er Headache; including migraine (8 sources) Tension-type headache; Translations: [Acute intractable tension-type headache] 09-29-2019 Episodic Immunizations and screening for infectious disease (20 sources) Need for prophylactic vaccination and inoculation against influenza; Translations: [Needs influenza immunization] 09-29-2019 Episodic Miscellaneous mental health disorders (5 sources) Lack of libido; 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] Onset: 4 07-15-2024 Chronic Osteoarthritis (10 sources) Bilateral osteoarthritis of knees; Translations: [Bilateral primary osteoarthritis of knee] Onset: 5 06-21-2025 Chronic Other acquired deformities (5 sources) Arthropathy of knee joint; Translations: [Other specified acquired deformities of musculoskeletal system] 06-21-2025 Episodic Other acquired deformities (1 source) Other specified acquired deformities of musculoskeletal system; Translations: [Other specified acquired deformities of musculoskeletal system] Onset: 5 Episodic Other injuries and conditions due to external causes (5 sources) H/O: fracture; Translations: [Personal history of (healed) traumatic fracture] 07-18-2021 Episodic Other lower respiratory disease (20 sources) Cough; Translations: [Cough] Resolved: 9 09-29-2019 Episodic Other lower respiratory disease (8 sources) Dyspnea Episodic Other lower respiratory disease (5 sources) H/O: pneumonia; Translations: [Personal history of pneumonia (recurrent)] 07-18-2021 Episodic Other non-traumatic joint disorders (10 sources) Pain in right knee; Translations: [Pain of right knee joint] Onset: 5 Episodic Other non-traumatic joint disorders (3 sources) Knee pain Episodic Other non-traumatic joint disorders (2 sources) Unstable knee; Translations: [Other instability, right knee] 06-27-2025 Episodic Other nutritional; endocrine; and metabolic disorders (20 sources) Body mass index 30+ - obesity; Translations: [BMI 32.0-32.9,adult] 09-29-2019 Chronic Other nutritional; endocrine; and metabolic disorders (5 sources) Insulin resistance; Translations: [Metabolic syndrome] 04-17-2023 Chronic Other nutritional; endocrine; and metabolic disorders (1 source) Metabolic syndrome; Translations: [Metabolic syndrome and other insulin resistance] Onset: 4 Chronic Other upper respiratory infections (5 sources) Chronic sphenoidal sinusitis; Translations: [Chronic sphenoidal sinusitis] 02-12-2025 Chronic Other upper respiratory infections (20 sources) Acute pharyngitis; Translations: [Acute maxillary sinusitis] 09-29-2019 Episodic Comment on above: taking theraflu. hum idifier. gargle salt water. will send culture. told course of viral Residual codes; unclassified (7 sources) Needs influenza immunization; Translations: [Need for prophylactic vaccination and inoculation against influenza] 09-29-2019 Episodic Residual codes; unclassified (4 sources) Non-smoker; Translations: [Non-smoker] 09-27-2020 Episodic Sprains and strains (16 sources) Sprain of knee; Translations: [Sprain of other specified parts of right knee, subsequent encounter] Onset: 5 Episodic Thyroid disorders (20 sources) Goiter; Translations: [Thyromegaly] Onset: 4 09-29-2019 Chronic Comment on above: Patient is 64-year-o ld male, euthyroid from an endocrine standpoint, who has established a following for history of multiple thyroid nodules (including the surgical consultation with Dr. Alvares in 2020). He has experienced interval growth in both the right thyroid nodule that was the primary focus of his visit 3 years ago as well as growth of a left sided thyroid nodule. Interestingly, he denies development of any new compressive symptoms and suggest that they may be better than when he was evaluated at his consultation 3 years ago. I held a lengthy conversation with Mr. Gallagher today discussing the prevalence of thyroid nodularity and how they are triaged using the TI-RADS rating system. I also shared with him the results of his thyroid ultrasound and the results I obtained from applying his new dimensions to an WEST change in volume calculator for both his right thyroid nodule as well as his left thyroid nodule. I shared with him, specifically, that his right thyroid nodule has experienced a 45% increase in growth by volume while his left sided (superior pole) 0.7 cm nodule has increased by 512% at the same time. However, I provided correction that I believed was necessary to radiology's analysis of patient's thyroid ultrasound sharing with him that they had given him a TI-RADS 5 rating for this nodule largely waited on the observation that it was considered taller than wide. In my independent review of patient's index imaging this was simply not true. If this is jettisoned from consideration then patient's nodule becomes downgraded to a TI-RADS 4 nodule. Although, I agree there has been substantial growth at this lower TI-RADS level and remaining clearly subcentimeter in all dimensions I do not feel strongly to recommend biopsy at this time. It was also Mr. Gallagher's expressed wish to avoid any biopsies unless deemed necessary. We then went on to have a conversation about how it is impossible to prognosticate his risk for further growth of his right sided thyroid nodule, but history would suggest this is a strong possibility. We resolved to continue thyroid ultrasound surveillance of this issue in another year and patient is advised that if he is found to have significant substernal/intrathoracic extension of his thyroid gland he may require referral to a tertiary center for surgical intervention. He expresses understanding and appreciation for explanations provided at today's visit. Unclassified (20 sources) Unclassified (12 sources) Patient encounter status; Translations: [Annual physical exam] 11-08-2015 Unclassified (20 sources) THYROMEGALY (240.9) Unclassified (8 sources) Hypertriglycerides (272.1) Unclassified (16 sources) Backache, unspecified (724.5) Unclassified (20 sources) Non-smoker; Translations: [Non-smoker] 09-29-2019 Unclassified (20 sources) SCREENING FOR CANCER OF THE PROSTATE (V76.44) Unclassified (15 sources) BMI 35.0-35.9,adult Unclassified (20 sources) Thyromegaly Unclassified (5 sources) Screening for prostate cancer Unclassified (5 sources) BMI 32.0-32.9,adult Unclassified (6 sources) M25.561 - Pain in right knee Viral infection (16 sources) Parainfluenza; Translations: [Parainfluenza] Resolved: 9 09-29-2019 Episodic Past or Other Problems Problem Classification Problem Date Documented Date Episodic/Chronic Chronic obstructive pulmonary disease and bronchiectasis (8 sources) Bronchitis; Translations: [Bronchitis] Resolved: 06-24-2012 09-04-2015 Episodic Headache; including migraine (12 sources) Headache; including migraine Inflammation; infection of eye (except that caused by tuberculosis or sexually transmitteddisease) (8 sources) Bacterial conjunctivitis; Translations: [Acute bacterial conjunctivitis of both eyes] Resolved: 09-29-2019 09-29-2019 Episodic Other lower respiratory disease (8 sources) Dyspnea on exertion; Translations: [SOB (shortness of breath) on exertion] Resolved: 03-06-2009 09-01-2015 Episodic Comment on above: will check echo but probably somewhat related to overwt and lack of fitness tooreason did all this b/c worried with new elevation of white count I've had young people present this way with heart disease b/c of stress on body Other screening for suspected conditions (not mental disorders or infectious disease) (9 sources) Screening status; Translations: [Encounter for screening for malignant neoplasm of prostate (Renamed from Screening for prostate cancer)] Onset: 08-22-2024 10-25-2015 Episodic Pneumonia (except that caused by tuberculosis or sexually transmitted disease) (8 sources) Bacterial pneumonia; Translations: [Pneumonia, bacterial] Resolved: 09-29-2019 09-29-2019 Episodic Pneumonia (except that caused by tuberculosis or sexually transmitted disease) (16 sources) Pneumonia (except that caused by tuberculosis or sexually transmitted disease) Residual codes; unclassified (8 sources) Generalized aches and pains; Translations: [Body aches] Resolved: 09-29-2019 09-29-2019 Episodic Spondylosis; intervertebral disc disorders; other back problems (8 sources) Backache; Translations: [Backache] Resolved: 03-06-2009 07-26-2015 Episodic Comment on above: 80% resolved- no fur ther treatment unless problems arise Unclassified (8 sources) Annual physical exam (V70.0) Unclassified (16 sources) Screening status; Translations: [Encounter for screening for malignant neoplasm of prostate (Renamed from Screening for prostate cancer)] 10-25-2015 Unclassified (8 sources) Unspecified Diagnosis 09-29-2019 Unclassified (8 sources) BMI 34.0-34.9,adult Unclassified (8 sources) Body aches Unclassified (8 sources) Acute bacterial conjunctivitis of both eyes Unclassified (8 sources) Acute maxillary sinusitis, recurrence not specified Unclassified (8 sources) Hyperglyceridemia Unclassified (4 sources) Bronchitis,Acute (466.0) Results Test Name Value Interpretation Reference Range Facility Orthopedic Visit Reporton Orthopedic Visit Report [facility] [place] [address] OFFICE VISIT Date of Service: 06/27/25 MR#: [id number] Acct: [id number] Name: MIGUELANGEL GALLAGHER Rep #: [id number] 20 : 1960 Provider: Dr. Jose Reynolds so, DO Age/Sex: 65/M [place] [facility] [place]: Signed Intake Vital Signs 06/21/25 08:06 06/27/25 15:00 Height 5 ft 10 in 5 ft 10 in Weight: 245 lb 4 oz 244 lb 8 oz BMI 35.2 35.0 BP 201/104 H Blood Pressure Location Lt brachial Position Sitting Respiration 16 Pulse 72 Pulse Source Monitor Temp 97.8 F Temp Source Temporal Pulse Oximetry (%) 97 Oxygen Delivery Method room air Intake Visit Reasons: RIGHT KNEE Chief Complaint: RT Knee Pain Accompanied by: Self Is patient in pain?: Yes Allergies aspirin Adverse Reaction (Verified 06/27/25 15:02) Swelling Medications ???Medication ???Instructions ???Recorded ???Confirmed ???Type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 Date of Service: 08/19/24 MR#: [id number] Acct: [id number] Name: MIGUELANGEL GALLAGHER Rep #: [id number] : 1960 Provider: Dr. Bob yost MD Age/Sex: 64/M Location: [facility] Status: Signed Intake Vital Signs 07/15/24 16:02 08/19/24 14:09 Height 5 ft 10 in 5 ft 10 in Weight: 249 lb BMI 35.7 BP 162/82 H Blood Pressure Location Rt brachial Position Sitting Respiration 18 Pulse 84 Pulse Source Monitor Temp 97.2 F L Temp Source Temporal Pulse Oximetry (%) 96 Oxygen Delivery Method room air Intake Visit Reasons: THYROID NODULE Chief Complaint: thyroid nodule Is patient in pain?: No Allergies aspirin Adverse Reaction (Verified 08/19/24 14:10) Swelling Medications ???Medication ???Instructions ???Recorded ???Confirmed ???Type fenofibrate nanocrystallized 145 145 mg PO DAILY #90 tabs 05/17/24 08/19/24 Rx mg tablet losartan 50 mg tablet 50 mg PO DAILY #90 tabs 05/17/24 08/19/24 Rx simvastatin 20 mg tablet 20 mg PO QHS #90 tabs 05/17/24 08/19/24 Rx cholecalciferol (vitamin D3) 10 10 mcg PO QDAY 07/15/24 08/19/24 History mcg (400 unit) capsule PFSH Medical History (Updated 08/20/24 @ 18:[address] Bob Haley MD) Lack of libido Thyroid nodule Thyroid enlargement History of fracture History of pneumonia Hypertriglyceridemia Hyperlipemia Hypertension Family History Father Heart disease Myocardial infarction, Onset Age: 39 CVA (cerebral vascular accident) Grandfather Heart disease CVA (cerebral vascular accident) Social History Smoking Status: Never smoker Tobacco: How many years used: 4 alcohol intake: current alcohol intake frequency: a few times a week substance use type: does not use and other details: thc, edibles what type of physical activity do you participate in: none HPI HPI HPI: Patient is a 64-year-old male who presents for evaluation of thyroid nodularity. They are referred for surgical consultation from Dr. Bautista. Patient previously saw Dr. Alvares in consultation for this issue in 2020. At that time he underwent biopsy of a 5.1 cm right-sided thyroid nodule that returned as a [place] 2, benign lesion. He had described occasional difficulty with swallowing and so tentative plans were made for thyroid surgery, but Dr. Alvares had requested cardiovascular optimization prior to undergoing surgery. Patient states that the surgery was ultimately delayed indefinitely on the account of the COVID pandemic. He notes that the area has not bothered him and he has not noticed any growth, but at his most recent PCP appointment he was advised to repeat an ultrasound to check to see if growth had occurred. They do not experience difficulty with swallowing. They do not complain of a new cough. They do appreciate new voice changes, but suggest that there has been just a little change and it is only apparent at certain times. They do not have a history of snoring/sleep apnea. Additionally, their weight has been stable and they do not have a history of weight gain/loss or an inability to lose despite intentional effort. There is a history of recent fatigue, but patient states that he is simply attributed this to his age. He confirms that he sleeps well and simply does not have the stamina to do the activity he once did. They do not have a history of heat or cold intolerance. Other symptoms include: Hair loss (patient states jokingly). They do have a family history of thyroid disorders and confirmed that her mother was treated with radioactive iodine therapy for a history of Graves' disease while their sister is on medication but he is uncertain of her actual diagnosis. There is no history of prior radiation exposure. Previous work-up has included thyroid ultrasound. This study was performed on 07/28/2024 and showed a right thyroid lobe measuring 8.1 x 5.1 x 3.8 cm. Within this lobe radiology identified a dominant nodule measuring 6.5 x 4.4 x 3.5 cm which radiology states does not appear to be significantly changed compared with prior exam. The left thyroid lobe measured 6.0 x 1.7 x 1.5 cm. Within this lobe radiology identified 3 nodules including a 0.7 x 0.7 x 0.6 TI-RADS 5 nodule, a 1.2 x 0.6 x 0.5 TI-RADS 3 nodule, and a 1.1 x 0.7 x 0.7 cm TI-RADS 4 nodule. An FNA versus close yearly follow-up has been recommended for patient's larger 0.7 TI-RADS 5 nodule but has not been performed. Other tests include: TSH: 1.43, free T4: 0.9, free T3: 2.7 (07/27/2024) ROS General General: No weight change, appetite, fatigue, colon cancer, breast cancer or weakness HEENT CARA (more content not included)... Normal [facility] Testosterone, Total / Freeon 08-05-2024 TESTOSTER,FREE 8.29 ng/dL Normal 5.00-21.00 [facility] Comment on above: Order Comment: N Performed By: #### L 501.39521, L501.9910, L506.0400, L506.1000, L501.5200, L500.4100, L3100.5310, L501.9520, L100.0100, L503.0105 ####[facility] [address] [place], [address] TESTOSTER,TOTAL 389 ng/dL Normal 264-916 [facility] Comment on above: Order Comment: N Result Comment: Adul t male reference interval is based on a population of healthy nonobese males (BMI <30) between 19 and 39 years old. sami Briseno.al. JCEM 2017,102;3165-3862. PMID: 16135007. Performed By: #### L 501.92917, L501.9910, L506.0400, L506.1000, L501.5200, L500.4100, L3100.5310, L501.9520, L100.0100, L503.0105 ####[facility] [address] [place], [address] TESTOSTERONE,%F 2.13 Normal 1.50-4.20 [facility] Comment on above: Order Comment: N Result Comment: Perf ormed at: - [facility] [id number] [employer]: Aamir Gonzalez PhD, Phone: [phone] Performed at: - [facility] [id number] [employer]: Lori Sweet MD, Phone: [phone] Performed By: #### L 501.05287, L501.9910, L506.0400, L506.1000, L501.5200, L500.4100, L3100.5310, L501.9520, L100.0100, L503.0105 ####[facility] [address] [place], [address] Thyroidon 07-28-[address] [facility] Imaging Services [address] [place], [place] [address] Thyroid MR#: [id number] Acct: [id number] Name: MIGUELANGEL GALLAGHER Rep #: [id number] : 1960 M 64 From: Bob Villalobos PCP: Dr. Rich Sams MD Status: [facility] Study: Thyroid Date of Exam: 07/28/24 Exam# [id number] Ordering Dr: Rich Sams MD [id number] EXAM: US SOFT TISSUES HEAD AND NECK, THYROID CLINICAL INDICATION: Thyroid nodules. -- Please make comparison with prior thyroid ultrasou TECHNIQUE: Grayscale and color doppler imaging was performed of the thyroid gland. COMPARISON: 08/13/2021. FINDINGS: LEFT THYROID LOBE: Solid nodule measuring 0.7 x 0.7 x 0.6 cm in the superior aspect of the left lobe posteriorly is hypoechoic, taller than wide, irregular without echogenic foci. It appears larger than on the previous examination where it was measured at about 4 mm. Solid nodule measuring 1.2 x 0.6 x 0.5 cm mid left lobe of the thyroid laterally is isoechoic, wider than tall, smooth, without echogenic foci. Solid nodule measuring 1.1 x 0.7 x 0.7 cm inferior left lobe of the thyroid is solid, heterogeneous hypoechoic, wider than tall, smooth, without echogenic foci. It appears stable since the prior exam. The left lobe of the thyroid lobe measures 6.0 x 1.5 x 1.7 cm. RIGHT THYROID LOBE: Heterogeneous solid nodule measuring 6.5 x 4.4 x 3.5 cm right lobe of the thyroid is isoechoic, wider than tall, relatively smooth without echogenic foci. It does not appear to be significantly changed compared with the prior exam. The right lobe of the thyroid lobe measures 8.1 x 5.1 x 3.8 cm. ISTHMUS: Unremarkable. No thyroid nodules are present. The isthmus measures 0.5 cm in thickness. US/Thyroid IMPRESSION: 1. Heterogeneous solid nodule measuring 6.5 x 4.4 x 3.5 cm right lobe of the thyroid is isoechoic, wider than tall, relatively smooth without echogenic foci. It does not appear to be significantly changed compared with the prior exam. TI-RADS points: 3. TI-RADS category: TR3. This nodule is mildly suspicious. Recommend FNA evaluation if this has not already been performed. 2. Solid nodule measuring 0.7 x 0.7 x 0.6 cm in the superior aspect of the left lobe posteriorly is hypoechoic, taller than wide, irregular without echogenic foci. It appears larger than on the previous examination where it was measured at about 4 mm. TI-RADS points: 8. TI-RADS category: TR5. This nodule is highly suspicious. In view of the fact that it is increased in size consider FNA evaluation versus yearly follow-up for at least five years. 3. Solid nodule measuring 1.2 x 0.6 x 0.5 cm mid left lobe of the thyroid laterally is isoechoic, wider than tall, smooth, without echogenic foci. It appears stable compared with the prior exam. TI-RADS points: 3. TI-RADS category: TR3. This nodule is mildly suspicious but no FNA or follow-up is necessary given the small size of this nodule. 4. Solid nodule measuring 1.1 x 0.7 x 0.7 cm inferior left lobe of the thyroid is solid, heterogeneous hypoechoic, wider than tall, smooth, without echogenic foci. It appears stable since the prior exam. TI-RADS points: 4. TI-RADS category: TR4. This nodule is moderately suspicious. Recommend follow-up thyroid ultrasound in 2 years. Electronically Signed: Bob Ochoa MD at 2:54 EDT , CC: Dr. Rich Sams MD Well Flow Operator: Signed Normal [facility] CBC W/Diff, Automatedon 10-0 Absolute Lymph 1.81 X10 3/uL Normal 0.83-4.51 [facility] Comment on above: Performed By: #### L 501.89163, L501.9910, L506.0400, L506.1000, L501.5200, L500.4100, L3100.5310, L501.9520, L100.0100, L503.0105 #### [facility] Laboratory [address] [place], [address] Absolute Neut 4.9 X10 3/uL Normal 2.0-7.7 [facility] Comment on above: Performed By: #### L 501.46327, L501.9910, L506.0400, L506.1000, L501.5200, L500.4100, L3100.5310, L501.9520, L100.0100, L503.0105 #### [facility] Laboratory [address] [place], [address] Basophils/100 WBC (Bld) 0.5 % Normal 0-1 [facility] Comment on above: Performed By: #### L 501.23977, L501.9910, L506.0400, L506.1000, L501.5200, L500.4100, L3100.5310, L501.9520, L100.0100, L503.0105 #### [facility] Laboratory [address] [facility] [place], [address] Eosinophils/100 WBC (Bld) 4.1 % Normal 0-5 [facility] Comment on above: Performed By: #### L 501.82490, L501.9910, L506.0400, L506.1000, L501.5200, L500.4100, L3100.5310, L501.9520, L100.0100, L503.0105 #### [facility] Laboratory [address] [facility] [place], [address] Erythrocyte distribution width (RBC) [Ratio] 12.3 % Normal 11.6-14.6 [facility] Comment on above: Performed By: #### L 501.93271, L501.9910, L506.0400, L506.1000, L501.5200, L500.4100, L3100.5310, L501.9520, L100.0100, L503.0105 #### [facility] [address] [facility] [place], [address] Hematocrit (Bld) [Volume fraction] 44.3 % Normal 40-54 [facility] Comment on above: Performed By: #### L 501.10451, L501.9910, L506.0400, L506.1000, L501.5200, L500.4100, L3100.5310, L501.9520, L100.0100, L503.0105 #### [facility] [address] [facility] [place], [address] Hemoglobin (Bld) [Mass/Vol] 14.4 g/dL Normal 13.0-16.5 [facility] Comment on above: Performed By: #### L 501.86951, L501.9910, L506.0400, L506.1000, L501.5200, L500.4100, L3100.5310, L501.9520, L100.0100, L503.0105 #### [facility] [address] [facility] [place], [address] IG% 0.300 Normal 0.0-0.9 [facility] Comment on above: Result Comment: IG% - Immature Granulocytes (promyelocytes, myelocytes and metamyelocytes) > 1% indicates that a LEFT SHIFT is Present. Performed By: #### L 501.32801, L501.9910, L506.0400, L506.1000, L501.5200, L500.4100, L3100.5310, L501.9520, L100.0100, L503.0105 #### [facility] [address] [place], [address] Lymphocytes/100 WBC (Bld) 24.2 % Normal 19-41 [facility] Comment on above: Performed By: #### L 501.27009, L501.9910, L506.0400, L506.1000, L501.5200, L500.4100, L3100.5310, L501.9520, L100.0100, L503.0105 #### [facility] [address] [place], [address] MCH (RBC) [Entitic mass] 30.4 pg Normal 27.0-32.0 [facility] Comment on above: Performed By: #### L 501.86394, L501.9910, L506.0400, L506.1000, L501.5200, L500.4100, L3100.5310, L501.9520, L100.0100, L503.0105 #### [facility] [address] [facility] [place], [address] MCHC (RBC) [Mass/Vol] 32.5 g/dL Normal 32-36 [facility] Comment on above: Performed By: #### L 501.56516, L501.9910, L506.0400, L506.1000, L501.5200, L500.4100, L3100.5310, L501.9520, L100.0100, L503.0105 #### [facility] Laboratory [address] [facility] [place], [address] MCV (RBC) [Entitic vol] 93.5 fL Normal 80-94 [facility] Comment on above: Performed By: #### L 501.99762, L501.9910, L506.0400, L506.1000, L501.5200, L500.4100, L3100.5310, L501.9520, L100.0100, L503.0105 #### [facility] Laboratory [address] [place], [address] Monocytes/100 WBC (Bld) 5.9 % Normal 0-10 [facility] Comment on above: Performed By: #### L 501.72661, L501.9910, L506.0400, L506.1000, L501.5200, L500.4100, L3100.5310, L501.9520, L100.0100, L503.0105 #### [facility] Laboratory [address] [facility] [place], [address] Neutrophils/100 WBC (Bld) 65.0 % Normal 47-70 [facility] Comment on above: Performed By: #### L 501.44196, L501.9910, L506.0400, L506.1000, L501.5200, L500.4100, L3100.5310, L501.9520, L100.0100, L503.0105 #### [facility] [address] [facility] [place], [address] Nucleated RBC (Bld) [#/Vol] 0 10*3/uL Normal 0-5 [facility] Comment on above: Performed By: #### L 501.27989, L501.9910, L506.0400, L506.1000, L501.5200, L500.4100, L3100.5310, L501.9520, L100.0100, L503.0105 #### [facility] [address] [place], [address] Platelet mean volume (Bld) [Entitic vol] 10.7 fL Normal 6.2-12.0 [facility] Comment on above: Performed By: #### L 501.11368, L501.9910, L506.0400, L506.1000, L501.5200, L500.4100, L3100.5310, L501.9520, L100.0100, L503.0105 #### [facility] [address] [facility] [place], [address] ( Platelets (Bld) [#/Vol] 303 10*3/uL Normal 150-450 [facility] Comment on above: Performed By: #### L 501.47562, L501.9910, L506.0400, L506.1000, L501.5200, L500.4100, L3100.5310, L501.9520, L100.0100, L503.0105 #### [facility] [address] [facility] [place], [address] RBC (Bld) [#/Vol] 4.74 10*6/uL Normal 4.6-6.2 [facility] Comment on above: Performed By: #### L 501.90673, L501.9910, L506.0400, L506.1000, L501.5200, L500.4100, L3100.5310, L501.9520, L100.0100, L503.0105 #### [facility] [address] [place], [address] ( RDW SD 42.7 fl Normal 35.1-43.9 [facility] Comment on above: Performed By: #### L 501.22426, L501.9910, L506.0400, L506.1000, L501.5200, L500.4100, L3100.5310, L501.9520, L100.0100, L503.0105 #### [facility] [address] [place], [address] WBC (Bld) [#/Vol] 7.5 10*3/uL Normal 4.4-11.0 [facility] Comment on above: Performed By: #### L 501.35529, L501.9910, L506.0400, L506.1000, L501.5200, L500.4100, L3100.5310, L501.9520, L100.0100, L503.0105 #### [facility] [address] [place], [place], [id number] Free T3on 07-27-2024 Free T3 [Mass/Vol] 2.7 pg/mL Normal 2.18-3.98 [facility] Comment on above: Order Comment: N Performed By: #### L 501.63307, L501.9910, L506.0400, L506.1000, L501.5200, L500.4100, L3100.5310, L501.9520, L100.0100, L503.0105 ####[facility] [address] [place], [place], [phone] Lipid Profileon 07-27-2024 Cholesterol [Mass/Vol] 189 mg/dL Normal 200 [facility] Comment on above: Order Comment: N Result Comment: <200 mg/dL Desirable 200-240 mg/dL Borderline >240 mg/dL High Risk Performed By: #### L 501.82024, L501.9910, L506.0400, L506.1000, L501.5200, L500.4100, L3100.5310, L501.9520, L100.0100, L503.0105 #### [facility] [address] [place], [address] Cholesterol in HDL [Mass/Vol] 56 mg/dL Normal [facility] Comment on above: Order Comment: N Result Comment: The drugs N-Acetylcysteine and Metamizole may falsely depress this assay. Reference Range HDL <40 mg/dL Low HDL Cholesterol HDL >or= 60 mg/dL High HDL Cholesterol Performed By: #### L 501.63568, L501.9910, L506.0400, L506.1000, L501.5200, L500.4100, L3100.5310, L501.9520, L100.0100, L503.0105 #### [facility] [address] [place], [address] Cholesterol in LDL [Mass/Vol] 118 mg/dL Normal 0-130 [facility] Comment on above: Order Comment: N Performed By: #### L 501.43695, L501.9910, L506.0400, L506.1000, L501.5200, L500.4100, L3100.5310, L501.9520, L100.0100, L503.0105 #### [facility] [address] [place], [address] Cholesterol in VLDL [Mass/Vol] 15 mg/dL Normal 5-40 [facility] Comment on above: Order Comment: N Performed By: #### L 501.08105, L501.9910, L506.0400, L506.1000, L501.5200, L500.4100, L3100.5310, L501.9520, L100.0100, L503.0105 #### [facility] [address] [place], [address] Triglyceride [Mass/Vol] 74 mg/dL Normal [facility] Comment on above: Order Comment: N Result Comment: The drugs N-Acetylcysteine and Metamizole may falsely depress this assay. Serum Triglycerides Reference Interval Normal <150 mg/dL Borderline high 150 - 199 mg/dL High 200 - 499 mg/dL Very High > or = 500 mg/dL Performed By: #### L 501.55666, L501.9910, L506.0400, L506.1000, L501.5200, L500.4100, L3100.5310, L501.9520, L100.0100, L503.0105 #### [facility] Laboratory [address] [place], [place], [id number] Magnesiumon 07-27-2024 Magnesium [Mass/Vol] 2.0 mg/dL Normal 1.6-2.6 [facility] Comment on above: Order Comment: N Performed By: #### L 501.24859, L501.9910, L506.0400, L506.1000, L501.5200, L500.4100, L3100.5310, L501.9520, L100.0100, L503.0105 ####[facility] [address] [place], [place], [phone] PSA,Total - Annual Screenon 07-27-2024 PSA,TOT SCREEN 1.46 ng/mL Normal 0.00-4.00 [facility] Comment on above: Order Comment: N Result Comment: This test was performed using the TPSA assay method for the [employer] chemistry system. Values obtained with different assay methods cannot be used interchangably. When changing PSA assays in the course of monitoring a patient, additional sequential testing should be carried out to confirm baseline values. Performed By: #### L 501.62087, L501.9910, L506.0400, L506.1000, L501.5200, L500.4100, L3100.5310, L501.9520, L100.0100, L503.0105 ####[facility] [address] [place], [place], [phone] Free Directon 07-27-2024 T4 FREE DIRECT 0.90 ng/dL Normal 0.76-1.46 [facility] Comment on above: Order Comment: N Performed By: #### L 501.48009, L501.9910, L506.0400, L506.1000, L501.5200, L500.4100, L3100.5310, L501.9520, L100.0100, L503.0105 ####[facility] [address] [facility] [place], [place], [phone] Thyroid Stim Hormone (TSH)on 07-27-2024 TSH 1.430 uIU/mL Normal 0.358-3.740 [facility] Comment on above: Order Comment: N Performed By: #### L 501.05384, L501.9910, L506.0400, L506.1000, L501.5200, L500.4100, L3100.5310, L501.9520, L100.0100, L503.0105 ####[facility] [address] [place], [place], [phone] Vitamin B12on 07-27-2024 Cobalamin (Vitamin B12) [Mass/Vol] 316 pg/mL Normal 211-911 [facility] Comment on above: Performed By: #### L 501.12452, L501.9910, L506.0400, L506.1000, L501.5200, L500.4100, L3100.5310, L501.9520, L100.0100, L503.0105 #### [facility] Laboratory [address] [place], [place], [id number] Vitamin D,25 Hydroxyon 07-27 Vitamin D 25-OH 31.4 ng/mL Normal [facility] Comment on above: Result Comment: Francisca min D 25(OH) Status Range Deficiency <20 ng/mL (50nmol/L) Insufficiency 20 - 30 ng/mL (50 - 75 nmol/L) Sufficiency 30 - 100 ng/mL (75 - 250 nmol/L) Toxicity >100 ng/mL (>250 nmol/L) Performed By: #### L 501.65913, L501.9910, L506.0400, L506.1000, L501.5200, L500.4100, L3100.5310, L501.9520, L100.0100, L503.0105 #### [facility] [address] [place], [address] MR/BMS.MARY ANNBon 07-15-2024 MR/BMS.ALFREDO [facility] [address] [facility] [place] [address] OFFICE VISIT Date of Service: 07/15/24 MR#: [id number] Acct: [id number] Name: MIGUELANGEL GALLAGHER Rep #: [id number] : 1960 Provider: Dr. Rich dennison MD Age/Sex: 64/M Location: [facility] Status: Signed Intake Vital Signs 04/17/23 15:01 07/15/24 16:02 07/15/24 16:04 Height 5 ft 10 in 5 ft 10 in Weight: 247 lb 8 oz BMI 35.5 BP 203/109 H 187/98 H Blood Pressure Location Lt brachial Rt brachial Position Sitting Respiration 16 Pulse 68 Pulse Source Monitor Temp 98.4 F Temp Source Temporal Pulse Oximetry (%) 95 Oxygen Delivery Method room air Intake Visit Reasons: Annual/Physical Chief Complaint: annual Trashman Required: No Accompanied by: Self Is patient in pain?: No Allergies aspirin Adverse Reaction (Verified 07/15/24 15:56) Swelling Medications ???Medication ???Instructions ???Recorded ???Confirmed ???Type fenofibrate nanocrystallized 145 145 mg PO DAILY #90 tabs 05/17/24 07/15/24 Rx mg tablet losartan 50 mg tablet 50 mg PO DAILY #90 tabs 05/17/24 07/15/24 Rx simvastatin 20 mg tablet 20 mg PO QHS #90 tabs 05/17/24 07/15/24 Rx cholecalciferol (vitamin D3) 10 10 mcg PO QDAY 07/15/24 07/15/24 History mcg (400 unit) capsule Have you fallen in the past year?: [facility] History (Updated 07/15/24 @ 16:[address] Rich Sams MD) Lack of libido Thyroid nodule Thyroid enlargement History of fracture History of pneumonia Hypertriglyceridemia Hyperlipemia Hypertension Family History Father Heart disease Myocardial infarction, Onset Age: 39 CVA (cerebral vascular accident) Grandfather Heart disease CVA (cerebral vascular accident) Social History (Updated 07/15/24 @ 16:01 by Sylwia Leach RN) Smoking Status: Never smoker Tobacco: How many years used: 4 alcohol intake: current alcohol intake frequency: a few times a week substance use type: does not use and other details: thc, edibles what type of physical activity do you participate in: none HPI HPI Chief Complaint: annual Details: MIGUELANGEL GALLAGHER, is a 64 M who presents to the office today for yearly follow-up. Patient has a history of hypertension on losartan, 50 mg daily. He was previously on hydrochlorothiazide 12.5 mg. Over the summer he noted some increased nighttime urination, frequency during the daytime, a sense of urgency. He states he decided to stop the HCTZ and it seemed to help a little bit he feels. He does drink plenty of water. He is also noted over the years, gradual decline in libido but nothing dramatic or rapid change but rather slow decline. He notes a little bit of decrease in stream. He is now urinating about once a night again whereas it was 2-3 times a night until he stopped the HCTZ. He has not been monitoring blood pressures however since stopping HCTZ. Otherwise seems to be feeling well. He remains physically active in his employment. He gets no chest pain, chest tightness, shortness of breath. No wheeze cough or congestion. No fever or chills. No nausea or vomiting. Appetite is good. Review of systems per chart. Physical exam. Vital signs on chart. PERRLA. Sclera are clear. TMs are unremarkable with normal light reflexes. Canals are unremarkable. Posterior pharynx is unremarkable. Good dentition. No cervical or supraclavicular lymph nodes enlarged or tender. No clear thyromegaly. No thyroid nodules readily palpable. Lungs are without wheeze, rhonchi, rales. No E/A changes are heard. Heart is regular. Not tachycardic. No clear murmur, rub, or gallop is identified. The abdomen is soft. Bowel sounds are present. Nontender nondistended abdomen. No clear palpable masses in the abdomen. No significant leg edema. Cranial nerve examination 2 through 12 are grossly unremarkable nonlateralizing. Deep tendon reflexes are 2/4 and symmetric at the bicep, tricep, Achilles, patella. No ankle clonus. No obvious rashes. No obvious significant skin lesions are identified. ROS Const Constitutional: No body ache, chills, excessive sweating, fatigue, fever(s), frequent falls, headache(s), snoring, weakness or change in appetite Eyes Eyes: No blurry vision, change in vision, eye pain or Light sensitivity ENT ENT: No abnormal hearing, ear or mastoid pain, tinnitus, nasal congestion, headache(s), neck pain or sore throat Resp Respiratory: No cough, shortness of breath, snoring or wheezing Cardio Cardiology: No chest pain at rest, chest pain with exertion, excessive sweating, dyspnea on exertion, lightheadedness, orthopnea or palpitations Gastro GI: No abdominal pain, change in bowel habits, constipation, cramping, diarrhea, nausea/dyspepsia or vomiting Genitourinary Male: (more content not included)... Normal [facility] Absolute lymphocyte countOrd ered By: Rich Sams on 04-18-2023 Lymphocytes Auto (Unsp spec) [#/Vol] 2.37 10*3/uL 0.83-4.51 [facility] Basophil percentageOrdered B y: Rich Sams on 04-18-2023 Basophils/100 WBC (Bld) 0.5 % 0-1 [facility] Bilirubin [Mass/Vol] 0.70 mg/dL 0.20-1.00 [facility] Comment on above: For patients on eltr ombopag therapy, use of Dimension [place] TBIL is not recommended. Chloride [Moles/Vol] 107 mmol/L 98-107 [facility] Cholesterol [Mass/Vol] 178 mg/dL <200 [facility] Comment on above: <200 mg/dL Desirable 200-240 mg/dL Borderline >240 mg/dL High Risk Eosinophils/100 WBC (Bld) 4.2 % 0-5 [facility] Glucose [Mass/Vol] 104 mg/dL 74-106 [facility] Comment on above: Fasting Glucose resu lt from 100 to 125 mg/dL suggests IMPAIRED HOMEOSTASIS per A.D.A. criteria. Neutrophils (Bld) [#/Vol] 4.4 10*3/uL 2.0-7.7 [facility] Neutrophils/100 WBC (Bld) 57.2 % 47-70 [facility] Potassium [Moles/Vol] 3.6 mmol/L 3.5-5.1 [facility] Protein [Mass/Vol] 7.1 g/dL 6.4-8.2 [facility] Sodium [Moles/Vol] 137 mmol/L 136-145 [facility] Triglyceride [Mass/Vol] 107 mg/dL <199 [facility] Comment on above: The drugs N-Acetylcy steine and Metamizole may falsely depress this assay.Serum Triglycerides Reference Interval Normal <150 mg/dL Borderline high 150 - 199 mg/dL High 200 - 499 mg/dL Very High > or = 500 mg/dL WBC (Bld) [#/Vol] 7.7 10*3/uL 4.4-11.0 [facility] Blood erythrocytes count (nu mber/volume)Ordered By: Rich Sams on 04-18-2023 RBC (Bld) [#/Vol] 4.54 10*6/uL 4.6-6.2 [facility] Blood hemoglobin measurement (mass/volume)Ordered By: Rich Sams on 04-18-2023 Hemoglobin (Bld) [Mass/Vol] 13.9 g/dL 13.0-16.5 [facility] Blood lymphocytes/100 leukoc ytesOrdered By: Rich Sams on 04-18-2023 Lymphocytes/100 WBC (Bld) 30.9 % 19-41 [facility] Blood monocytes/100 leukocyt esOrdered By: Rich Sams on 04-18-2023 Monocytes/100 WBC (Bld) 6.8 % 0-10 [facility] Blood platelet mean volumeOr dered By: Rich Sams on 04-18-2023 Platelet mean volume (Bld) [Entitic vol] 10.0 fL 6.2-12.0 [facility] Determination of erythrocyte mean corpuscular volume (MCV)Ordered By: Rich Sams on 04-18-2023 MCV (RBC) [Entitic vol] 91.2 fL 80-94 [facility] Hematocrit Auto (Bld) [Volum e fraction]Ordered By: Rich Sams on 04-18-2023 Hematocrit (Bld) [Volume fraction] 41.4 % 40-54 [facility] Laboratory - Chemistry and C hemistry - challengeOrdered By: Rich Sams on 04-18-2023 ALP [Catalytic activity/Vol] 38 U/L 45-117 [facility] ALT [Catalytic activity/Vol] 29 U/L 16-61 [facility] CO2 [Moles/Vol] 26.0 mmol/L 21.0-32.0 [facility] Free T4 [Mass/Vol] 0.92 ng/dL 0.76-1.46 [facility] Globulin (S) [Mass/Vol] 3.4 g/dL 2.2-4.2 [facility] Urea nitrogen/Creatinine [Mass ratio] 15.2 mg/mg 10-20 [facility] Laboratory - Hematology and Cell countsOrdered By: Rich Sams on 04-18-2023 Erythrocyte distribution width (RBC) [Entitic vol] 41.7 fL 35.1-43.9 [facility] Erythrocyte distribution width (RBC) [Ratio] 12.6 % 11.6-14.6 [facility] Immature granulocytes/100 WBC (Bld) 0.400 % 0.0-0.9 [facility] Comment on above: IG% - Immature Granu locytes (promyelocytes, myelocytes and metamyelocytes) > 1% indicates that a LEFT SHIFT is Present. MCH (RBC) [Entitic mass] 30.6 pg 27.0-32.0 [facility] Nucleated RBC/100 WBC (Bld) [Ratio] 0 % 0-5 [facility] MCHC Auto (RBC) [Mass/Vol]Or dered By: Rich Sams on 04-18-2023 MCHC (RBC) [Mass/Vol] 33.6 g/dL 32-36 [facility] No Panel InformationOrdered By: Rich Sams on 04-18-2023 Estimated GFR (MDRD) Amer 86 mL/min >60 [facility] Comment on above: GFR Calc Estimated GFR (MDRD) Non-Af Amer 71 mL/min >60 [facility] Comment on above: Non- GFR Calc Free Triiodothyronine (T3) pg/dL 2.5 pg/mL 2.18-3.98 [facility] Insulin Level 11.0 mU/L 2.6-37.6 [facility] Prostate Specific Antigen Screen 1.42 ng/mL 0.00-4.00 [facility] Comment on above: This test was perfor med using the TPSA assay method for the[employer]ardable chemistry system. Values obtained with differentassay methods cannot be used interchangably.When changing PSA assays in the course of monitoring apatient, additional sequential testing should be carriedout to confirm baseline values. Thyroid Stimulating Hormone (TSH) 1.54 uIU/mL 0.358-3.74 [facility] Vitamin D 25-Hydroxy 46.0 ng/mL [facility] Comment on above: Vitamin D 25(OH) Sta tus Range Deficiency <20 ng/mL (50nmol/L) Insufficiency 20 - 30 ng/mL (50 - 75 nmol/L) Sufficiency 30 - 100 ng/mL (75 - 250 nmol/L) Toxicity >100 ng/mL (>250 nmol/L) Platelets bldOrdered By: Dottie Sams on 04-18-2023 Platelets (Bld) [#/Vol] 269 10*3/uL 150-450 [facility] Serum or plasma albumin eddi urement (mass/volume)Ordered By: Rich Sams on 04-18-2023 Albumin [Mass/Vol] 3.7 g/dL 3.2-5.0 [facility] Serum or plasma albumin/glob ulin mass ratioOrdered By: Rich Sams on 04-18-2023 Albumin/Globulin [Mass ratio] 1.1 {ratio} 0.9-2.4 [facility] Serum or plasma calcium eddi urement (mass/volume)Ordered By: Rich Sams on 04-18-2023 Calcium [Mass/Vol] 9.0 mg/dL 8.5-10.1 [facility] Serum or plasma cholesterol in HDL measurement (mass/volume)Ordered By: Rich Sams on 04-18-2023 Cholesterol in HDL [Mass/Vol] 52 mg/dL >40 [facility] Comment on above: The drugs N-Acetylcy steine and Metamizole may falsely depress this assay. Reference Range HDL <40 mg/dL Low HDL Cholesterol HDL >or= 60 mg/dL High HDL Cholesterol Serum or plasma cholesterol in VLDL measurement (mass/volume)Ordered By: Rich Sams on 04-18-2023 Cholesterol in VLDL [Mass/Vol] 21 mg/dL 5-40 [facility] Serum or plasma creatinine m easurement (mass/volume)Ordered By: Rich Sams on 04-18-2023 Creatinine [Mass/Vol] 1.12 mg/dL 0.70-1.30 [facility] Comment on above: The validity of the calculated GFR & GFRAA in patients over 70 years has not been determined. Clinical correlation is essential. Serum or plasma low density lipoprotein (LDL) cholesterol measurement (mass/volume)Ordered By: Rich Sams on 04-18-2023 Cholesterol in LDL [Mass/Vol] 105 mg/dL 0-130 [facility] Serum or plasma urea nitroge n measurement (mass/volume)Ordered By: Rich Sams on 04-18-2023 Urea nitrogen [Mass/Vol] 17 mg/dL 7-18 [facility] Thin prep Papanicolaou smear with manual screeningOrdered By: Rich Sams on 04-18-2023 Thin prep Papanicolaou smear with manual screening 24 U/L 15-37 [facility] Thin prep Papanicolaou smear with manual screening 4 5-15 [facility] Whole blood hemoglobin A1c/t otal hemoglobin ratio (mass fraction)Ordered By: Rich Sams on 04-18-2023 HbA1c (Bld) [Mass fraction] 6.0 % 3.8-5.6 [facility] Comment on above: Normal < 5.7 % Predi abetic 5.7 - 6.4 % Diabetic >or= 6.5 % Please note range changes. CBC W/AUTO DIFF WBC (74622)O rdered By: Centerless Grinder on 11-03-2020 Basophils (Bld) [#/Vol] 0.0 10*3/uL Normal 0.0-0.2 [facility]; [facility] Work Phone: Comment on above: Test(s) 139128-JYW-F ; 171301-ROD-B; 529145-Fpezyzrageiem; 473093-Bdxpxiakisg, Total; 334572-HTK-W (Total); 880240-Lxoib LDL-P; 093090-IET Size; 777354-LR-RD Scorewas developed and its performance characteristics determinedby [employer]. It has not been cleared or approved by the Foodand Drug Administration.PATIENT WAS FASTINGPERFORMED BY: [employer] [address] [id number] BY: [facility] [facility] [id number] Basophils/100 WBC (Bld) 1 % Normal [facility]; [facility] Work Phone: Comment on above: Test(s) 753333-VEZ-F ; 408085-VNC-W; 443981-Lxziwaejarspf; 343879-Ooescykbshl, Total; 029367-ESB-D (Total); 269382-Aztev LDL-P; 559993-LWG Size; 819953-VE-EB Scorewas developed and its performance characteristics determinedby [employer]. It has not been cleared or approved by the Foodand Drug Administration.PATIENT WAS FASTINGPERFORMED BY: [employer] [address] [id number] BY: [employer]6[address] [facility] [id number] Eosinophils (Bld) [#/Vol] 0.3 10*3/uL Normal 0.0-0.4 [facility]; [facility] Work Phone: Comment on above: Test(s) 587248-QMU-A ; 571117-MYP-X; 784031-Iupwuxktnqfcg; 112742-Clcswdagfoq, Total; 756726-NTX-S (Total); 294259-Ziteq LDL-P; 211003-VVC Size; 646379-IH-KQ Scorewas developed and its performance characteristics determinedby [employer]. It has not been cleared or approved by the Foodand Drug Administration.PATIENT WAS FASTINGPERFORMED BY: [employer] [address] [id number] BY: [employer] [facility] [id number] Eosinophils/100 WBC (Bld) 5 % Normal [facility]; [facility] Work Phone: Comment on above: Test(s) 759374-BAC-Y ; 706541-JPD-Y; 493708-Qrwveqtypcjsc; 349339-Mdozkfcdbpm, Total; 022758-NMJ-W (Total); 781758-Wrhft LDL-P; 108493-KJA Size; 845913-WZ-TI Scorewas developed and its performance characteristics determinedby [employer]. It has not been cleared or approved by the Foodand Drug Administration.PATIENT WAS FASTINGPERFORMED BY: [employer] [id number] BY: [employer]6[address] [facility] [id number] Erythrocyte distribution width (RBC) [Ratio] 12.7 % Normal 11.6-15.4 [facility]; [facility] Work Phone: Comment on above: Test(s) 404971-IYA-R ; 856276-ZVV-Y; 700224-Ikfreztuoeahg; 841512-Cywlpkrrabg, Total; 859790-ENK-Q (Total); 928942-Zdxnc LDL-P; 505462-JWW Size; 287596-QF-TQ Scorewas developed and its performance characteristics determinedby [employer]. It has not been cleared or approved by the Foodand Drug Administration.PATIENT WAS FASTINGPERFORMED BY: [employer] [id number] BY: [employer] Pdivkb3413 [facility] [id number] Hematocrit (Bld) [Volume fraction] 39.9 % Normal 37.5-51.0 [facility]; [facility] Work Phone: Comment on above: Test(s) 388330-JBK-F ; 400480-OBW-G; 115549-Sviwkbxsmplfp; 557281-Lhetbdhkffi, Total; 581086-HXJ-L (Total); 547983-Uaqkv LDL-P; 381701-FKD Size; 724777-WT-XW Scorewas developed and its performance characteristics determinedby [employer]. It has not been cleared or approved by the Foodand Drug Administration.PATIENT WAS FASTINGPERFORMED BY: [employer] [address] [id number] BY: RecensusThe [facility] Hospital [facility] Salem CountyFjaqxk2992 [facility] [id number] Hemoglobin (Bld) [Mass/Vol] 13.7 g/dL Normal 13.0-17.7 [facility]; [facility] Work Phone: Comment on above: Test(s) 005797-AIN-T ; 772335-PLK-A; 708740-Ahktjmimrovwu; 786286-Ejhzdcjjtsw, Total; 297693-ZDN-G (Total); 730248-Fuvzh LDL-P; 622651-WGN Size; 554683-SC-FS Scorewas developed and its performance characteristics determinedby [employer]. It has not been cleared or approved by the Foodand Drug Administration.PATIENT WAS FASTINGPERFORMED BY: [employer] [address] [id number] BY: [employer] Jxqprf8329 [facility] [id number] Immature granulocytes (Bld) [#/Vol] 0.0 10*3/uL Normal 0.0-0.1 [facility]; [facility] Work Phone: Comment on above: Test(s) 551273-GBO-E ; 548940-HZS-K; 580165-Vnfdwdpyeueyg; 510236-Iewnknowrsv, Total; 580920-HFG-F (Total); 485237-Zdlbb LDL-P; 238092-HVP Size; 893161-BN-GM Scorewas developed and its performance characteristics determinedby [employer]. It has not been cleared or approved by the Foodand Drug Administration.PATIENT WAS FASTINGPERFORMED BY: [employer] [id number] BY: [employer] Aleoxm0271 [facility] [id number] Immature granulocytes/100 WBC (Bld) 1 % Normal [facility]; [facility] Work Phone: Comment on above: Test(s) 988786-JAL-S ; 285665-JUR-U; 892027-Csyfoivxghzrf; 312916-Onjdactbmuc, Total; 921151-OLM-I (Total); 672810-Zekbu LDL-P; 209182-XXJ Size; 136707-OK-WA Scorewas developed and its performance characteristics determinedby [employer]. It has not been cleared or approved by the Foodand Drug Administration.PATIENT WAS FASTINGPERFORMED BY: [employer] [address] [id number] BY: [employer] Yfeawg7485 [facility] [id number] Lymphocytes (Bld) [#/Vol] 2.1 10*3/uL Normal 0.7-3.1 [facility]; [facility] Work Phone: Comment on above: Test(s) 072164-VCC-V ; 678130-IUA-I; 269815-Driaikfoalzxd; 975677-Hshiahfjhvz, Total; 955888-YAB-K (Total); 412702-Gxovc LDL-P; 304461-IFI Size; 177553-XG-MY Scorewas developed and its performance characteristics determinedby [employer]. It has not been cleared or approved by the FoodStorm Exchange Drug Administration.PATIENT WAS FASTINGPERFORMED BY: [employer] [address] [id number] BY: [employer] Ssyibg7413 [facility] [id number] Lymphocytes/100 WBC (Bld) 32 % Normal [facility]; [facility] Work Phone: Comment on above: Test(s) 933672-INI-Z ; 069925-FMK-B; 188013-Hkawvrnprprdk; 360898-Pqnmtjypypr, Total; 819673-FUX-H (Total); 380720-Cmidl LDL-P; 333051-RGF Size; 402617-GT-AU Scorewas developed and its performance characteristics determinedby [employer]. It has not been cleared or approved by the Foodand Drug Administration.PATIENT WAS FASTINGPERFORMED BY: [employer] [address] [id number] BY: [employer] Lbfbln6857 [facility] [id number] MCH (RBC) [Entitic mass] 31.3 pg Normal 26.6-33.0 [facility]; [facility] Work Phone: Comment on above: Test(s) 914222-HMT-K ; 543640-RSG-Q; 348044-Jzkxcdlrpctll; 274156-Qsijeoqcjok, Total; 000430-JPQ-M (Total); 929019-Nroqp LDL-P; 048797-IPA Size; 024219-RB-LE Scorewas developed and its performance characteristics determinedby [employer]. It has not been cleared or approved by the Foodand Drug Administration.PATIENT WAS FASTINGPERFORMED BY: [employer] [address] [id number] BY: [facility] [id number] MCHC (RBC) [Mass/Vol] 34.3 g/dL Normal 31.5-35.7 [facility]; [facility] Work Phone: Comment on above: Test(s) 144662-UMH-P ; 881677-BTR-A; 450047-Gmngkxozrdrqv; 325181-Xiirdeucpip, Total; 878629-HDJ-S (Total); 653343-Rfkam LDL-P; 131643-DPI Size; 854391-GA-ZD Scorewas developed and its performance characteristics determinedby [employer]. It has not been cleared or approved by the Foodand Drug Administration.PATIENT WAS FASTINGPERFORMED BY: [employer] [address] [id number] BY: [employer]6370 [facility] [id number] MCV (RBC) [Entitic vol] 91 fL Normal 79-97 [facility]; [facility] Work Phone: Comment on above: Test(s) 971903-DKE-X ; 244581-UQC-D; 553680-Tifedfwfsuutu; 884808-Rhmgcdpsgaj, Total; 664946-AYD-F (Total); 925546-Qhddv LDL-P; 891912-ARK Size; 342993-EO-CK Scorewas developed and its performance characteristics determinedby [employer]. It has not been cleared or approved by the Foodand Drug Administration.PATIENT WAS FASTINGPERFORMED BY: [employer] [address] [id number] BY: [employer]6370 [facility] [id number] Monocytes (Bld) [#/Vol] 0.4 10*3/uL Normal 0.1-0.9 [facility]; [facility] Work Phone: Comment on above: Test(s) 730089-GTG-K ; 811404-YEC-A; 049628-Ngbwfrlvtllrh; 089580-Tnhnjrzmkpe, Total; 442709-LTO-F (Total); 019295-Gdgqq LDL-P; 686392-ZMJ Size; 343513-GO-WV Scorewas developed and its performance characteristics determinedby [employer]. It has not been cleared or approved by the Foodand Drug Administration.PATIENT WAS FASTINGPERFORMED BY: [employer] [address] [id number] BY: [employer] Siygln9894 [facility] [id number] Monocytes/100 WBC (Bld) 6 % Normal [facility]; [facility] Work Phone: Comment on above: Test(s) 593471-TUH-B ; 986959-ZLC-G; 041326-Lyewlyclpvcis; 293793-Wmuodzqbxxb, Total; 017959-KQV-F (Total); 316689-Dczyg LDL-P; 328707-BEO Size; 624937-TF-DI Scorewas developed and its performance characteristics determinedby [employer]. It has not been cleared or approved by the Foodand Drug Administration.PATIENT WAS FASTINGPERFORMED BY: [employer] [address] [id number] BY: [employer] SportsMesilla Valley HospitalAcukop0964 [facility] [id number] Neutrophils (Bld) [#/Vol] 3.7 10*3/uL Normal 1.4-7.0 [facility]; [facility] Work Phone: Comment on above: Test(s) 373381-KNG-J ; 736020-XGI-M; 181977-Ccuameppkedkf; 999354-Pllqoxawmqc, Total; 444841-CIZ-E (Total); 216118-Nvmho LDL-P; 280085-EKP Size; 326250-BI-SF Scorewas developed and its performance characteristics determinedby [employer]. It has not been cleared or approved by the Foodand Drug Administration.PATIENT WAS FASTINGPERFORMED BY: [employer] [address] [id number] BY: [employer]6370 [facility] [id number] Neutrophils/100 WBC (Bld) 55 % Normal [facility]; [facility] Work Phone: Comment on above: Test(s) 758890-CPI-P ; 480991-LXU-D; 994826-Gvynnxegxoric; 344953-Twvkkeysljq, Total; 038352-OBN-G (Total); 593864-Ovbbc LDL-P; 789011-GVL Size; 898882-SP-ZA Scorewas developed and its performance characteristics determinedby [employer]. It has not been cleared or approved by the Foodand Drug Administration.PATIENT WAS FASTINGPERFORMED BY: Arista Power[address] [id number] BY: Screaming SportsThe Memorial Hospital of Salem CountyMbyuey7160 [facility] [id number] Platelets (Bld) [#/Vol] 275 10*3/uL Normal 150-450 [facility]; [facility] Work Phone: Comment on above: Test(s) 368877-VFR-X ; 052367-PPZ-D; 522610-Mlxcgcndwkqeg; 879057-Hpsiqznbkav, Total; 683792-BOE-H (Total); 574329-Jtlcp LDL-P; 210144-NET Size; 584926-GG-FR Scorewas developed and its performance characteristics determinedby [employer]. It has not been cleared or approved by the Foodand Drug Administration.PATIENT WAS FASTINGPERFORMED BY: Recensus[address] [id number] BY: Recensus Ggqawz7762 [facility] [id number] RBC (Bld) [#/Vol] 4.38 10*6/uL Normal 4.14-5.80 [facility] Internal [facility]; [facility] Work Phone: Comment on above: Test(s) 222156-KRE-C ; 240022-QJY-J; 860009-Nclnichogajxe; 185739-Rqdxhipjyrg, Total; 239394-IKR-B (Total); 303673-Dense LDL-P; 561105-DRO Size; 973911-IW-QO Scorewas developed and its performance characteristics determinedby [employer]. It has not been cleared or approved by the Foodand Drug Administration.PATIENT WAS FASTINGPERFORMED BY: [employer] [address] [id number] BY: Recensus Zdwoft3621 [facility] [id number] WBC (Bld) [#/Vol] 6.5 10*3/uL Normal 3.4-10.8 [facility] Internal [facility]; [facility] Work Phone: Comment on above: Test(s) 321177-KWK-O ; 093323-HCK-T; 795777-Statindqaomdi; 176942-Ifivubphwyh, Total; 698501-MUS-F (Total); 775468-Ruzev LDL-P; 123804-URG Size; 489492-JU-AN Scorewas developed and its performance characteristics determinedby [employer]. It has not been cleared or approved by the Foodand Drug Administration.PATIENT WAS FASTINGPERFORMED BY: Recensus[address] [id number] BY: Screaming Sports Szahgc5951 [facility] [id number] HGB A1C (26933)Ordered By: S ystem Dehydrogenation Converter Helper on 11-03-2020 HbA1c (Bld) [Mass fraction] 5.9 % Abnormal 4.8-5.6 [facility]; [facility] Work Phone: Comment on above: . Prediabetes: 5.7 - 6.4 Diabetes: >6.4 Glycemic control for adults with diabetes: <7.0 Test(s) 303730-WFF-W ; 191781-LGY-I; 369047-Muorbksodkntr; 973540-Jzrszyjtiat, Total; 395738-IMP-G (Total); 441736-Gdcqb LDL-P; 133098-OMP Size; 205149-TF-UB Scorewas developed and its performance characteristics determinedby [employer]. It has not been cleared or approved by the Foodand Drug Administration.PATIENT WAS FASTINGPERFORMED BY: Optony[address] [place] [address] [id number] BY: ISRA Airizu6370 [facility] [id number] METABOLIC PANEL, COMPREHENSI VE (77782)Ordered By: Centerless Grinder on 11-03-2020 Albumin [Mass/Vol] 4.4 g/dL Normal 3.8-4.9 [facility] Internal [facility]; [facility] Work Phone: Comment on above: Test(s) 008423-NVB-A ; 412570-IDP-P; 948384-Rfvkaftxhaayb; 197646-Pdejhuoaqep, Total; 888668-VGW-N (Total); 433701-Kzrnl LDL-P; 719744-CMT Size; 108581-FP-KY Scorewas developed and its performance characteristics determinedby [employer]. It has not been cleared or approved by the Foodand Drug Administration.PATIENT WAS FASTINGPERFORMED BY: Alector[address] [id number] BY: Aviasales6370 [facility] [id number] Albumin/Globulin [Mass ratio] 1.8 {ratio} Normal 1.2-2.2 [facility]; [facility] Work Phone: Comment on above: Test(s) 428576-GTN-O ; 739437-OMP-E; 085199-Vsmmjdigmpwdk; 095344-Ydqrnyouvfh, Total; 557192-ESY-Y (Total); 197267-Svpdu LDL-P; 454193-NHA Size; 310959-PS-RI Scorewas developed and its performance characteristics determinedby [employer]. It has not been cleared or approved by the Foodand Drug Administration.PATIENT WAS FASTINGPERFORMED BY: [employer] [address] [id number] BY: onefinestay Nimiam0491 [facility] [id number] ALP [Catalytic activity/Vol] 40 U/L Normal 39-117 [facility]; [facility] Work Phone: Comment on above: Test(s) 217427-PLK-W ; 523336-JPM-A; 573784-Sbfgztgedyufr; 125472-Cpxqskdzlbt, Total; 992774-PNW-A (Total); 559234-Slbni LDL-P; 561180-YXX Size; 351780-WW-AH Scorewas developed and its performance characteristics determinedby [employer]. It has not been cleared or approved by the Foodand Drug Administration.PATIENT WAS FASTINGPERFORMED BY: [employer] [address] [id number] BY: Aviasales6370 [facility] [id number] ALT [Catalytic activity/Vol] 23 U/L Normal 0-44 [facility]; [facility] Work Phone: Comment on above: Test(s) 721985-OHN-F ; 569106-NOD-J; 415456-Tytwqmvlqsitc; 942210-Tnscsfsqydp, Total; 438237-SIY-J (Total); 865472-Oxhsl LDL-P; 306586-YYC Size; 944511-MY-GK Scorewas developed and its performance characteristics determinedby [employer]. It has not been cleared or approved by the Foodand Drug Administration.PATIENT WAS FASTINGPERFORMED BY: BN [employer] [id number] BY: Screaming Sports Pmenjh6010 [facility] [id number] AST [Catalytic activity/Vol] 26 U/L Normal 0-40 [facility]; [facility] Work Phone: Comment on above: Test(s) 362496-KQV-P ; 828146-TNH-M; 682832-Hbxbaancpbkot; 853819-Mgjlefvytnw, Total; 752843-DKP-S (Total); 486657-Uurvv LDL-P; 578158-AFJ Size; 448055-JV-JY Scorewas developed and its performance characteristics determinedby [employer]. It has not been cleared or approved by the Foodand Drug Administration.PATIENT WAS FASTINGPERFORMED BY: [employer] [address] [id number] BY: Aviasales6370 [facility] [id number] Bilirubin [Mass/Vol] 0.5 mg/dL Normal 0.0-1.2 [facility] Internal Medicine; [facility] Work Phone: Comment on above: Test(s) 764108-GLX-I ; 624539-IZX-V; 434272-Gcwfixwnopkkq; 775679-Rpsvojwznye, Total; 827788-HXH-V (Total); 265010-Xrfry LDL-P; 927822-LAH Size; 022122-HT-FL Scorewas developed and its performance characteristics determinedby [employer]. It has not been cleared or approved by the Foodand Drug Administration.PATIENT WAS FASTINGPERFORMED BY: Arista Power[address] [id number] BY: Screaming SportsThe Memorial Hospital of Salem CountyPnmegi6123 [facility] [id number] Calcium [Mass/Vol] 9.5 mg/dL Normal 8.7-10.2 [facility] Internal Medicine; [facility] Work Phone: Comment on above: Test(s) 550434-EOX-Y ; 863024-BGM-Y; 919215-Ysgtkfebpfhdo; 039151-Gxurkzffvgt, Total; 296746-UAI-Z (Total); 592675-Buwdm LDL-P; 760765-CTT Size; 067325-KF-WW Scorewas developed and its performance characteristics determinedby [employer]. It has not been cleared or approved by the Foodand Drug Administration.PATIENT WAS FASTINGPERFORMED BY: Alector[address] [id number] BY: [facility] [id number] Chloride [Moles/Vol] 105 mmol/L Normal 96-106 [facility] Internal Medicine; [facility] Work Phone: Comment on above: Test(s) 495667-HYF-F ; 944805-EBX-H; 143600-Bssyfzaabwmas; 394306-Fbyrfjtckcl, Total; 263335-CJH-B (Total); 613400-Louxg LDL-P; 604120-SLC Size; 683847-AK-UN Scorewas developed and its performance characteristics determinedby [employer]. It has not been cleared or approved by the Foodand Drug Administration.PATIENT WAS FASTINGPERFORMED BY: [employer] [address] [id number] BY: Aviasales6370 [facility] [id number] CO2 [Moles/Vol] 24 mmol/L Normal 20-29 [facility] Internal Medicine; [facility] Work Phone: Comment on above: Test(s) 741960-YWK-T ; 496298-NZV-W; 454478-Iidmkhancupeg; 024371-Dxstfzrfiuz, Total; 155467-CQX-F (Total); 833851-Alnrr LDL-P; 363781-NGO Size; 602857-YG-TQ Scorewas developed and its performance characteristics determinedby [employer]. It has not been cleared or approved by the Foodand Drug Administration.PATIENT WAS FASTINGPERFORMED BY: [employer] [address] [id number] BY: [facility]70 [facility] [id number] Creatinine [Mass/Vol] 1.15 mg/dL Normal 0.76-1.27 [facility] prehensive Internal Medicine; [facility] Work Phone: Comment on above: Test(s) 984483-XXU-V ; 103647-HYC-X; 788730-Xspdkejsrrvps; 559482-Kygvmxmsvre, Total; 861402-THM-V (Total); 660505-Vvxvh LDL-P; 800342-JMJ Size; 902373-KN-NZ Scorewas developed and its performance characteristics determinedby [employer]. It has not been cleared or approved by the Foodand Drug Administration.PATIENT WAS FASTINGPERFORMED BY: [employer] [address] [id number] BY: [facility]70 [facility] [id number] GFR/1.73 sq M.predicted among blacks CKD-EPI (S/P/Bld) [Vol rate/Area] 81 mL/min/1.73 Normal [facility]; [facility] Work Phone: Comment on above: Test(s) 374916-KFJ-O ; 818784-RTG-T; 337612-Voxxqrfhurbji; 899493-Zrlzmjicdbp, Total; 898875-VWI-C (Total); 205001-Eebgt LDL-P; 462042-MNW Size; 161963-FN-EI Scorewas developed and its performance characteristics determinedby [employer]. It has not been cleared or approved by the Foodand Drug Administration.PATIENT WAS FASTINGPERFORMED BY: [employer] [address] [id number] BY: [employer] Tuesws9814 [facility] [id number] GFR/1.73 sq M.predicted among non-blacks CKD-EPI (S/P/Bld) [Vol rate/Area] 70 mL/min/1.73 Normal [facility]; [facility] Work Phone: Comment on above: Test(s) 906505-PUH-P ; 640419-OZL-L; 751974-Usagjoyzcndut; 025665-Aqyeelfexzx, Total; 204819-TNR-Z (Total); 412353-Eldym LDL-P; 238950-QHQ Size; 968881-YF-MP Scorewas developed and its performance characteristics determinedby [employer]. It has not been cleared or approved by the Foodand Drug Administration.PATIENT WAS FASTINGPERFORMED BY: [employer] [address] [id number] BY: [facility]70 [facility] [id number] Globulin (S) [Mass/Vol] 2.5 g/dL Normal 1.5-4.5 [facility] Internal Medicine; [facility] Work Phone: Comment on above: Test(s) 508828-OTA-R ; 289576-WDH-M; 141552-Dqvgabzpevwao; 507536-Ghblcwgpyvj, Total; 248039-VLF-H (Total); 824940-Cjbvj LDL-P; 932987-YSR Size; 905465-AH-JY Scorewas developed and its performance characteristics determinedby [employer]. It has not been cleared or approved by the Foodand Drug Administration.PATIENT WAS FASTINGPERFORMED BY: [employer] [address] [id number] BY: Aviasales6370 [facility] [id number] Glucose [Mass/Vol] 94 mg/dL Normal 65-99 [facility] Internal Medicine; [facility] Work Phone: Comment on above: Test(s) 820246-TWC-T ; 206084-OQP-N; 633607-Mrfniqkkdnybu; 209410-Eeclduckiwi, Total; 083069-EYU-N (Total); 077082-Zbiex LDL-P; 679177-SIU Size; 952372-TX-EM Scorewas developed and its performance characteristics determinedby [employer]. It has not been cleared or approved by the Foodand Drug Administration.PATIENT WAS FASTINGPERFORMED BY: [employer] [address] [id number] BY: Aviasales6370 [facility] [id number] Potassium [Moles/Vol] 4.2 mmol/L Normal 3.5-5.2 [facility] Internal Medicine; [facility] Work Phone: Comment on above: Test(s) 912608-TRS-E ; 449858-MAH-Y; 516109-Pytvakkyoozkc; 412341-Gkqmvtzugke, Total; 971828-KWQ-Q (Total); 654206-Mvpfj LDL-P; 000954-NIK Size; 874133-WZ-EH Scorewas developed and its performance characteristics determinedby [employer]. It has not been cleared or approved by the Foodand Drug Administration.PATIENT WAS FASTINGPERFORMED BY: Alector[address] [id number] BY: Aviasales6370 [facility] [id number] Protein [Mass/Vol] 6.9 g/dL Normal 6.0-8.5 [facility] Internal Medicine; [facility] Work Phone: Comment on above: Test(s) 319715-HXR-X ; 272405-PTK-K; 488880-Bkffzniptbygv; 210291-Fpfkzhzbjnv, Total; 697244-CSP-K (Total); 893320-Cfurh LDL-P; 151058-UWR Size; 708187-KF-TT Scorewas developed and its performance characteristics determinedby [employer]. It has not been cleared or approved by the Foodand Drug Administration.PATIENT WAS FASTINGPERFORMED BY: Arista Power[address] [id number] BY: Screaming SportsThe [facility] Hospital of Salem CountyWqqgpl0988 [facility] [id number] Sodium [Moles/Vol] 142 mmol/L Normal 134-144 [facility] Internal Medicine; [facility] Work Phone: Comment on above: Test(s) 192767-VJJ-P ; 594118-MZV-F; 771471-Jksfvohiyvtuh; 709807-Cyjfdfhxaex, Total; 558961-YLC-R (Total); 162089-Fmpaa LDL-P; 278974-EWK Size; 732100-EQ-GZ Scorewas developed and its performance characteristics determinedby [employer]. It has not been cleared or approved by the Foodand Drug Administration.PATIENT WAS FASTINGPERFORMED BY: [employer] [address] [id number] BY: Screaming Sports Dzhsmi9402 [facility] [id number] Urea nitrogen [Mass/Vol] 20 mg/dL Normal 6-24 [facility]; [facility] Work Phone: Comment on above: Test(s) 305284-WBV-Y ; 751710-RDY-E; 570352-Idqdiibaujsfn; 540445-Dzuwrjmnbyp, Total; 518954-DUI-S (Total); 429519-Aajjx LDL-P; 077134-RXO Size; 743734-XI-IJ Scorewas developed and its performance characteristics determinedby [employer]. It has not been cleared or approved by the Foodand Drug Administration.PATIENT WAS FASTINGPERFORMED BY: [employer] [address] [id number] BY: [facility]70 [facility] [id number] Urea nitrogen/Creatinine [Mass ratio] 17 mg/mg Normal 9-20 [facility]; [facility] Work Phone: Comment on above: Test(s) 738949-RHU-X ; 066600-QET-D; 161603-Dxbglumvxdnzb; 502437-Xngntgihvqq, Total; 148549-TNR-T (Total); 067121-Ihbul LDL-P; 933319-ANW Size; 567365-CY-RJ Scorewas developed and its performance characteristics determinedby [employer]. It has not been cleared or approved by the Foodand Drug Administration.PATIENT WAS FASTINGPERFORMED BY: [employer] [address] [id number] BY: Aviasales6370 [facility] [id number] MICROALBUMINOrdered By: Syst em Dehydrogenation Converter Helper on 11-03-2020 Albumin DL <= 20 mg/L (U) [Mass/Vol] 15.9 ug/mL Normal [facility]; [facility] Work Phone: Comment on above: Test(s) 858345-AQS-X ; 121272-JGC-A; 141920-Pdxoacfhnizkx; 750690-Drfzgitrate, Total; 574470-TAL-C (Total); 339668-Sykrt LDL-P; 065203-ZRW Size; 662773-AN-CK Scorewas developed and its performance characteristics determinedby [employer]. It has not been cleared or approved by the Foodand Drug Administration.PATIENT WAS FASTINGPERFORMED BY: Alector[address] [id number] BY: [facility]70 [facility] [id number] Albumin/Creatinine (U) [Mass ratio] 10 {mg/g_creat} Normal 0-29 [facility]; [facility] Work Phone: Comment on above: Normal: 0 - 29 Moder ately increased: 30 - 300 Severely increased: >300 Test(s) 079114-GWR-B ; 449756-JUH-K; 019153-Vefryslngddhd; 109016-Wpvgeaavgiw, Total; 937068-QBV-I (Total); 237267-Klmsw LDL-P; 619397-JNL Size; 827080-RY-KO Scorewas developed and its performance characteristics determinedby [employer]. It has not been cleared or approved by the Foodand Drug Administration.PATIENT WAS FASTINGPERFORMED BY: [employer] [address] [id number] BY: [facility]70 [facility] [id number] Creatinine (U) [Mass/Vol] 160.7 mg/dL Normal [facility]; [facility] Work Phone: Comment on above: Test(s) 129785-DIF-Z ; 595105-XBY-O; 422924-Oerfzjpylmjfv; 376573-Jjglnbxdrbl, Total; 783008-RDW-R (Total); 884931-Ddiwd LDL-P; 966703-RLR Size; 559261-NO-BL Scorewas developed and its performance characteristics determinedby [employer]. It has not been cleared or approved by the Foodand Drug Administration.PATIENT WAS FASTINGPERFORMED BY: Arista Power[address] [id number] BY: Recensus Nsefyb3747 Soriano realSociableKindred Hospital - [facility] [id number] NMR Profile (18713)Ordered B y: Centerless Grinder on 11-03-2020 Cholesterol [Mass/Vol] 165 mg/dL Normal 100-199 [facility] Internal Medicine; [facility] Work Phone: Comment on above: Test(s) 015136-LMZ-V ; 425913-NTL-D; 840005-Iyinkcqaqupfd; 168540-Rxfgwfvzwza, Total; 302029-ADE-F (Total); 992919-Njjxf LDL-P; 275510-OJO Size; 103290-SG-BK Scorewas developed and its performance characteristics determinedby [employer]. It has not been cleared or approved by the Foodand Drug Administration.PATIENT WAS FASTINGPERFORMED BY: [employer] [address] [id number] BY: [facility]70 [facility] [id number] Lipoprotein.alpha [Moles/Vol] 44.7 umol/L Normal [facility]; [facility] Work Phone: Comment on above: Test(s) 157219-MJI-B ; 525369-YFI-U; 966867-Tczuolhcfhsuj; 309223-Hynifvmajys, Total; 290762-FTH-M (Total); 018626-Dfalm LDL-P; 743919-DDA Size; 076241-UA-XR Scorewas developed and its performance characteristics determinedby [employer]. It has not been cleared or approved by the Foodand Drug Administration.PATIENT WAS FASTINGPERFORMED BY: [employer] [address] [id number] BY: [facility]70 [place] realSociableKindred Hospital [facility] [id number] Lipoprotein.beta.subpa rticle [Entitic length] 21.4 nm Normal [facility]; [facility] Work Phone: Comment on above: INTERPRETATIVE INFORMATION PARTICLE CONCENTRATION AND SIZE <--Lower CVD Risk Higher CVD Risk--> LDL AND HDL PARTICLES Percentile in Reference Population HDL-P (total) High 75th 50th 25th Low >34.9 34.9 30.5 26.7 <26.7 . Small LDL-P Low 25th 50th 75th High <117 117 527 839 >839 . LDL Size <-Large (Pattern A)-> <-Small (Pattern B)-> 23.0 20.6 20.5 19.0 Small LDL-P and LDL Size are associated with CVD risk, but not afterLDL-P is taken into account. Test(s) 496936-CNN-N ; 318253-MQY-R; 391788-Dnfyiiflzbmce; 914957-Xkrglhlkrtk, Total; 812025-PZN-R (Total); 046895-Kpvxt LDL-P; 656568-MCM Size; 801205-ME-HV Scorewas developed and its performance characteristics determinedby [employer]. It has not been cleared or approved by the Foodand Drug Administration.PATIENT WAS FASTINGPERFORMED BY: [employer] [id number] BY: LabCoThe [facility] Hospital of Salem CountyPuioed[address] [facility] [id number] Lipoprotein.beta.subpa rticle [Moles/Vol] 1072 nmol/L Abnormal [facility]; [facility] Work Phone: Comment on above: Low < 1000 Moderate 1000 - 1299 Borderline-High 1300 - 1599 High 1600 - 2000 Very High > 2000 Test(s) 329998-DNC-Y ; 401482-IRA-P; 575507-Phwibwfydxlsb; 711661-Suxqogqhdli, Total; 372004-ZJQ-Y (Total); 563916-Tdvsp LDL-P; 460520-MWM Size; 384278-BU-DE Scorewas developed and its performance characteristics determinedby [employer]. It has not been cleared or approved by the Foodand Drug Administration.PATIENT WAS FASTINGPERFORMED BY: [employer] [address] [id number] BY: [facility]70 [facility] [id number] Lipoprotein.beta.subpa rticle.small [Moles/Vol] 317 nmol/L Normal [facility]; [facility] Work Phone: Comment on above: Test(s) 174835-YNJ-F ; 639376-DJO-N; 402115-Jfqrchznbkalg; 629145-Kksebhuxvoy, Total; 903723-SOY-U (Total); 356474-Uuivu LDL-P; 828374-ZZO Size; 725444-IQ-QY Scorewas developed and its performance characteristics determinedby [employer]. It has not been cleared or approved by the Foodand Drug Administration.PATIENT WAS FASTINGPERFORMED BY: [employer] [address] [id number] BY: Aviasales6370 [facility] [id number] Triglyceride [Mass/Vol] 124 mg/dL Normal 0-149 [facility]; [facility] Work Phone: Comment on above: Test(s) 925992-DCI-C ; 173154-AVE-A; 038364-Hfpehnajpvqov; 055935-Nzhgsojswbi, Total; 026821-BXW-N (Total); 618988-Baoug LDL-P; 714984-ZRQ Size; 978113-GZ-WM Scorewas developed and its performance characteristics determinedby [employer]. It has not been cleared or approved by the Foodand Drug Administration.PATIENT WAS FASTINGPERFORMED BY: Alector[address] [id number] BY: [facility]70 [facility] [id number] NMR Profile (08372) 90 mg/dL Normal 0-99 [facility]; [facility] Work Phone: Comment on above: . Optimal < 100 Abov e optimal 100 - 129 Borderline 130 - 159 High 160 - 189 Very high > 189 . Test(s) 212162-NSH-Y ; 300704-LMS-Q; 222590-Zzaadxgitjrie; 055113-Akhvonbxhpd, Total; 908262-ZKO-O (Total); 080849-Xywcv LDL-P; 816637-YMN Size; 585603-GS-LB Scorewas developed and its performance characteristics determinedby [employer]. It has not been cleared or approved by the Foodand Drug Administration.PATIENT WAS FASTINGPERFORMED BY: Alector[address] [id number] BY: [facility]70 [facility] [id number] NMR Profile (59756) 53 mg/dL Normal [facility] Internal Medicine; [facility] Work Phone: Comment on above: Test(s) 876894-MHI-C ; 618300-JIN-L; 535668-Hnkoumehflhuk; 111832-Bdtijnkagyo, Total; 330781-DWI-H (Total); 596565-Kefyp LDL-P; 026197-NQZ Size; 108929-NA-UV Scorewas developed and its performance characteristics determinedby [employer]. It has not been cleared or approved by the Foodand Drug Administration.PATIENT WAS FASTINGPERFORMED BY: Alector[address] [id number] BY: [employer] Partnerslin6370 [facility] [id number] PSA (PROSTATE SPECIFIC ANTIG EN) (V76.44)Ordered By: Centerless Grinder on 11-03-2020 Prostate specific Ag [Mass/Vol] 1.3 ng/mL Normal 0.0-4.0 [facility] Internal Medicine; [facility] Work Phone: Comment on above: Ayde ECLIA methodol ogy. .According to the [place] [employer], Serum PSA shoulddecrease and remain at undetectable levels after radicalprostatectomy. The AUA defines biochemical recurrence as an initialPSA value 0.2 ng/mL or greater followed by a subsequent confirmatoryPSA value 0.2 ng/mL or greater.Values obtained with different assay methods or kits cannot be usedinterchangeably. Results cannot be interpreted as absolute evidenceof the presence or absence of malignant disease. Test(s) 154070-UXT-K ; 021325-LLI-P; 174678-Qtutstgyfhsoi; 058056-Kfibkjgxnxc, Total; 149156-LPF-I (Total); 241009-Weiat LDL-P; 280995-VAU Size; 720912-AL-ND Scorewas developed and its performance characteristics determinedby [employer]. It has not been cleared or approved by the Foodand Drug Administration.PATIENT WAS FASTINGPERFORMED BY: Optony7 [facility] [id number] BY: [facility] En[facility]avorR[facility] [id number] TSH ([id number])Ordered By: Bello Medeiros on 11-03-2020 TSH Qn 1.340 {uIU/mL} Normal 0.450-4.500 [facility] Internal Medicine; [facility] Work Phone: Comment on above: Test(s) 508488-MQK-O ; 998295-PAY-J; 752288-Jehvcgtyphtvc; 958661-Znkwidzecwj, Total; 181773-HOS-L (Total); 521721-Kcvwd LDL-P; 601073-IDK Size; 692157-RY-IN Scorewas developed and its performance characteristics determinedby [employer]. It has not been cleared or approved by the Foodand Drug Administration.PATIENT WAS FASTINGPERFORMED BY: Alectorton1447 [facility] [id number] BY: [facility] EndeavorRuther[facility] System [id number] URINALYSIS, W/ MICRO (28683) Ordered By: Centerless Grinder on 11-03-2020 Appearance (U) Clear Normal Comprehens brent Internal Medicine; [facility] Work Phone: Comment on above: Test(s) 434828-LXE-W ; 501677-CIP-R; 798558-Myhdzrjzinwzo; 621246-Otvxkzgajxn, Total; 514098-OHM-U (Total); 357827-Zggwl LDL-P; 843448-CNB Size; 866035-BL-IW Scorewas developed and its performance characteristics determinedby [employer]. It has not been cleared or approved by the Foodand Drug Administration.PATIENT WAS FASTINGPERFORMED BY: Alector[address] [id number] BY: iSnapox YFind TechnologiesRutherford Regional Health System [id number] Bilirubin Ql (U) Negative Normal Comprehe nsive Internal Medicine; [facility] Work Phone: Comment on above: Test(s) 535487-RKN-U ; 670439-SEI-J; 921092-Zgcmxbnfyhepf; 469667-Aqyoxzowsjt, Total; 053993-DUQ-Z (Total); 369489-Enotn LDL-P; 211081-BFC Size; 658765-WL-OM Scorewas developed and its performance characteristics determinedby [employer]. It has not been cleared or approved by the Foodand Drug Administration.PATIENT WAS FASTINGPERFORMED BY: [address]lector[address] [id number] BY: [facility] Soriano YFind TechnologiesRutherford Regional Health System [id number] Color (U) Yellow Normal [facility]; [facility] Work Phone: Comment on above: Test(s) 143097-JTS-Z ; 832085-BIW-X; 471008-Lukqfimyimwto; 567545-Mtgpioctnii, Total; 256925-VPJ-H (Total); 895848-Umvzn LDL-P; 335451-KXZ Size; 383331-XI-PL Scorewas developed and its performance characteristics determinedby [employer]. It has not been cleared or approved by the Foodand Drug Administration.PATIENT WAS FASTINGPERFORMED BY: Recensus[address] [id number] BY: RecensusThe Memorial Hospital of Salem CountyChdajf3640 [facility] [id number] Glucose Ql (U) Negative Normal Comprehens brent Internal Medicine; [facility] Work Phone: Comment on above: Test(s) 619086-FNK-T ; 073586-RPJ-O; 442116-Ejhbzfqeotivw; 606409-Eusedukhzhs, Total; 788642-XSA-O (Total); 337671-Eodyx LDL-P; 981557-JEH Size; 840294-AI-HC Scorewas developed and its performance characteristics determinedby [employer]. It has not been cleared or approved by the Foodand Drug Administration.PATIENT WAS FASTINGPERFORMED BY: [employer] [address] [id number] BY: Recensus Furcbx0619 [facility] [id number] Hemoglobin Ql (U) Negative Normal Compreh ensive Internal Medicine; [facility] Work Phone: Comment on above: Test(s) 810699-LDC-X ; 137569-LZC-A; 708723-Ohzuxrfxsasci; 040954-Yryxtwpmxzu, Total; 634716-NWB-A (Total); 438211-Idwrg LDL-P; 111720-KFU Size; 416990-OF-EQ Scorewas developed and its performance characteristics determinedby [employer]. It has not been cleared or approved by the Foodand Drug Administration.PATIENT WAS FASTINGPERFORMED BY: Recensus[address] [id number] BY: RecensusMel[place] 5995270 [facility] [id number] Ketones Ql (U) Negative Normal Comprehens brent Internal Medicine; [facility] Work Phone: Comment on above: Test(s) 474287-GEJ-W ; 445590-RHD-U; 198241-Gzirurwtdiotc; 485890-Poypedmijnw, Total; 547602-MAZ-N (Total); 608391-Lpznj LDL-P; 414276-IKN Size; 302122-HZ-OF Scorewas developed and its performance characteristics determinedby [employer]. It has not been cleared or approved by the Foodand Drug Administration.PATIENT WAS FASTINGPERFORMED BY: [employer] [address] [id number] BY: [facility] [id number] Leukocyte esterase Test strip Ql (U) Negative Normal [facility]; [facility] Work Phone: Comment on above: Test(s) 150937-ILU-I ; 406163-TEL-I; 396001-Epqqhyxkkwrxl; 639729-Dutcfoflrvd, Total; 591603-OBJ-P (Total); 019057-Rhxcn LDL-P; 703971-AVE Size; 888382-EM-IK Scorewas developed and its performance characteristics determinedby [employer]. It has not been cleared or approved by the Foodand Drug Administration.PATIENT WAS FASTINGPERFORMED BY: [employer] [address] [id number] BY: [employer] [facility] [id number] Microscopic observation LM Nom (Urine sed) MICRON Normal [facility]; [facility] Work Phone: Comment on above: Microscopic follows if indicated. Test(s) 243873-MXA-R ; 943688-GNU-H; 595294-Gagchzowftcxo; 192036-Slwsxujelyf, Total; 645139-JRL-C (Total); 141788-Bxyxq LDL-P; 708894-PFI Size; 020688-RL-AH Scorewas developed and its performance characteristics determinedby [employer]. It has not been cleared or approved by the Foodand Drug Administration.PATIENT WAS FASTINGPERFORMED BY: [employer] [address] [id number] BY: Aviasales6370 [facility]Kind[facility] [id number] Microscopic observation LM Nom (Urine sed) See below: Normal [facility]; [facility] Work Phone: Comment on above: Microscopic was gio cated and was performed. Test(s) 698998-YUW-D ; 079486-WSL-B; 988955-Odaomsqalquhy; 062994-Keqofbunktg, Total; 182411-VOU-A (Total); 431221-Myhqn LDL-P; 170956-AOM Size; 884019-RI-VX Scorewas developed and its performance characteristics determinedby [employer]. It has not been cleared or approved by the Foodand Drug Administration.PATIENT WAS FASTINGPERFORMED BY: [employer] [address] [id number] BY: [facility] Equ[facility] EndeavorRutherford Regional [facility] System [id number] Nitrite Ql (U) Negative Normal Comprehens brent Internal Medicine; [facility] Work Phone: Comment on above: Test(s) 017719-LBR-Q ; 738373-OSZ-A; 907136-Noqtzsvypoupc; 857968-Wflazxpbafe, Total; 525111-JMX-O (Total); 348772-Ejtrg LDL-P; 931934-XDH Size; 484043-JR-PF Scorewas developed and its performance characteristics determinedby [employer]. It has not been cleared or approved by the Foodand Drug Administration.PATIENT WAS FASTINGPERFORMED BY: [employer] Xorjachyrg1568 [facility] [id number] BY: Aviasales6370 [facility]PeopleKind[facility] [id number] pH (U) 7.0 [pH] Normal 5.0-7.5 [facility]; [facility] Work Phone: Comment on above: Test(s) 213053-GZI-C ; 538600-ONI-S; 579067-Uulsaiemuxrpr; 702645-Mznelhsojqt, Total; 586144-ETQ-V (Total); 097170-Kkscb LDL-P; 903591-IIT Size; 585700-WP-SN Scorewas developed and its performance characteristics determinedby [employer]. It has not been cleared or approved by the Foodand Drug Administration.PATIENT WAS FASTINGPERFORMED BY: [employer] [address] [id number] BY: [facility]70 [facility] [id number] Protein Ql (U) Negative Normal Comprehens brent Internal Medicine; [facility] Work Phone: Comment on above: Test(s) 948679-FFY-A ; 285559-PWE-N; 020308-Hcjhmoespdjnv; 184068-Zttafhiayws, Total; 952115-OXL-B (Total); 682252-Nzdzq LDL-P; 587521-CKJ Size; 780539-CJ-TL Scorewas developed and its performance characteristics determinedby [employer]. It has not been cleared or approved by the FoodStorm Exchange Drug Administration.PATIENT WAS FASTINGPERFORMED BY: [address]lector[address] [id number] BY: [facility]70 [facility] [id number] Specific gravity (U) [Rel density] 1.023 1 Normal 1.005-1.030 [facility]; [facility] Work Phone: Comment on above: Test(s) 845527-INL-U ; 807740-FQJ-R; 176230-Fghixvbjoqzux; 123559-Iprohlaqqew, Total; 756212-FTT-D (Total); 038324-Brifw LDL-P; 086858-UCF Size; 798231-DI-TD Scorewas developed and its performance characteristics determinedby [employer]. It has not been cleared or approved by the Foodand Drug Administration.PATIENT WAS FASTINGPERFORMED BY: [employer] [address] [id number] BY: Peak8 Partnerslin6370 [facility] [id number] Urobilinogen (U) [Mass/Vol] 0.2 mg/dL Normal 0.2-1.0 [facility]; [facility] Work Phone: Comment on above: Test(s) 851919-IKP-J ; 407853-IST-E; 934926-Zbobpanvnpwpb; 190884-Fbztxrfqijl, Total; 871424-BOL-Q (Total); 230994-Ltxaz LDL-P; 609826-IKU Size; 605905-ME-GS Scorewas developed and its performance characteristics determinedby [employer]. It has not been cleared or approved by the Foodand Drug Administration.PATIENT WAS FASTINGPERFORMED BY: BN [facility] Etxoladxwi6908 [facility] [id number] BY: CB [facility] Aonxcb3246 [facility] [id number] [facility] 10-06-2019 Cholesterol [Mass/Vol] 175 mg/dL Normal [facility] ([place]) Comment on above: Result Comment: Refe rence range: <200 Unit: mg/dL Performed By: Brake Repairer Air: ELIANE#: Phone#: Performed By: #### U Maya, ADALBERTO #### [place] [address] Cholesterol in HDL [Mass/Vol] Test Not Performed Normal [facility] ([place]) Comment on above: Result Comment: Refe rence range: >7.2 Unit: umol/L (NOTE) Relative risk: Optimal >7.2; Moderate 5.3-7.2; High <5.3 umol/L. Reference range is >3.5 umol/L. Performed By: Brake Rep[employer]: ELIANE#: Phone#: Performed By: #### U Maya, MALMARIA FERNANDA #### [address] [address] Result Comment: Refe rence range: >9.0 Unit: nm (NOTE) Relative risk: Optimal >9.0; Moderate 8.7-9.0; High <8.7 nm. Reference range is 8.3-10.5 nm. Performed By: Brake Repairer [employer]: ELIANE#: Phone#: Result Comment: Refe rence range: >32.8 Unit: umol/L (NOTE) Relative risk: Optimal >32.8; Moderate 29.2-32.8; High <29.2 umol/L. Reference range is 21.1-43.4 umol/L. Performed By: Bra[employer]: ELIANE#: Phone#: Cholesterol in HDL [Mass/Vol] 2.1 mg/dL High [facility] ([place]) Comment on above: Result Comment: Refe rence range: <2.0 Unit: calc (NOTE) Test performed at: [facility] [address], [place] [address] [place] [address] Tim Aj MD Test performed by: [facility], [address], [place] [address] Performed By: Brake Repairer [employer]: ELIANE#: Phone#: Performed By: #### U A, MALBR #### [address] [address] Cholesterol.total/Chol esterol in HDL [Mass ratio] 3.2 {ratio} Normal [facility] ([place]) Comment on above: Result Comment: Refe rence range: <3.6 Unit: calc Performed By: Brake Rep[employer]r [employer]: ELIANE#: Phone#: Performed By: #### U Maya, MALBR #### [place] [address] HDL Cholesterol NMR 54 Normal [facility] ([place]) Comment on above: Result Comment: Refe rence range: >39 Unit: mg/dL Performed By: Brake Repairer [employer]: ELIANE#: Phone#: Performed By: #### U A, MALBR #### [address] [address] Large VLDL-P Test Not Performed [facility] ([place]) Comment on above: Result Comment: Refe rence range: <3.7 Unit: nmol/L (NOTE) Relative risk: Optimal <3.7; Moderate 3.7-6.1; High >6.1 nmol/L. Reference range is <16.0 nmol/L. Performed By: Bra[employer]: ELIANE#: Phone#: Performed By: #### U A, MALBR #### [address] [address] LDL Cholesterol Calculated 100 High [facility] ([place]) Comment on above: Result Comment: Refe rence range: <100 Unit: mg/dL (calc) (NOTE) Desirable range <100 mg/dL for primary prevention; <70 mg/dL for patients with CHD or diabetic patients with >= 2 CHD risk factors. LDL-C is now calculated using the Phoebe calculation, which is a validated novel method providing better accuracy than the Friedewald equation in the estimation of LDL-C. Rigo GAY et al. REFUGIO. 2013;310(19): 0060-1206 (http://education.WordStream.Buddy/faq/MXH155) Performed By: Brake Repairer [employer]: ELIANE#: Phone#: Performed By: #### U Maya, MALBR #### [address] [address] LDL Size Test Not Performed Normal [facility] ([place]) Comment on above: Result Comment: Refe rence range: >20.5 Unit: nm (NOTE) Relative risk: Optimal >20.5; High <20.6 nm. Reference range is 20.0-22.3 nm. Performed By: Bra[employer]: ELIANE#: Phone#: Performed By: #### U Maya, MALBR #### [address] [address] LDL-P Test Not Performed Normal [facility] ([place]) Comment on above: Result Comment: Refe rence range: <935 Unit: nmol/L (NOTE) The presence of gel barrier interference from use of an unapproved collection tube rendered the specimen unsuitable for lipoprotein measurement. Relative risk: Optimal <935; Moderate 935-1816; High >1816 nmol/L. Reference range is 592-2404 nmol/L. This test is performed by a Nuclear Magnetic Resonance method. This test was developed and its performance characteristics determined by [facility] It has not been cleared or approved by the U.S. FDA. The [facility] is regulated under Clinical Laboratory Improvement Amendments (CLIA) as qualified to perform high-complexity testing. This test is used for clinical purposes. It should not be regarded as investigational or for research. Performed By: Brake Repaire[employer]: ELIANE#: Phone#: Performed By: #### U Maay, MALBR #### [address] [address] Non-HDL Cholesterol 121 Normal [facility] ([place]) Comment on above: Result Comment: Refe rence range: <130 Unit: mg/dL (calc) (NOTE) For patients with diabetes plus 1 major ASCVD risk factor, treating to a non-HDL-C goal of <100 mg/dL (LDL-C of <70 mg/dL) is considered a therapeutic option. Performed By: Brake Repairer [employer]: ELIANE#: Phone#: Performed By: #### U Maya, MALBR #### [place] [address] Small LDL-P Test Not Performed Normal [facility] ([place]) Comment on above: Result Comment: Refe rence range: <467 Unit: nmol/L (NOTE) Relative risk: Optimal <467; Moderate 467-820; High >820 nmol/L. Reference range is <1408 nmol/L. Performed By: Brake Repairer [employer]: ELIANE#: Phone#: Performed By: #### Heri Trejo, MALBR #### [place] [address] Triglycerides NMR 114 Normal [facility] ([place]) Comment on above: Result Comment: Refe rence range: <150 Unit: mg/dL Performed By: Brake Repairer [employer]: ELIANE#: Phone#: Performed By: #### U A, MALBR #### [place] [address] VLDL Size Test Not Performed Normal [facility] ([place]) Comment on above: Result Comment: Refe rence range: <47.1 Unit: nm (NOTE) Relative risk: Optimal <47.1; Moderate 47.1-49.0; High >49.0 nm. Reference range is 41.1-61.7 nm. Test performed at: [facility] [address], [place] [address] [place] [address] Tim Aj MD Performed By: Brake Repairer [employer]: ELIANE#: Phone#: Performed By: #### U Maya, MALBR #### [place] [address] A1Con 10-03-2019 HbA1c (Bld) [Mass fraction] 5.8 % Normal 4.5-6.2 [facility] ([place]) Comment on above: Performed By: #### U A, MALBR #### [place] [address] .Auto Diffon 10-02-2019 Ammonia (P) [Mass/Vol] 0.60 10 3/mcL Normal 0.15-1.00 [facility] ([place]) Comment on above: Performed By: #### F T4, TSH, LIPID, FT3, A1C, GFR, CMP #### [place] [address] #### ADIFF, ANEU, CBC #### [address] [address] Basophils (Bld) [#/Vol] 0.00 10 3/mcL Normal 0.00-0.19 [facility] ([place]) Comment on above: Performed By: #### F T4, TSH, LIPID, FT3, A1C, GFR, CMP #### [place] [address] #### ADIFF, ANEU, CBC #### [address] [address] Basophils/100 WBC (Bld) 0.5 % Normal 0.0-2.5 [facility] ([place]) Comment on above: Performed By: #### F T4, TSH, LIPID, FT3, A1C, GFR, CMP #### [place] [address] #### ADIFF, ANEU, CBC #### [address] [address] Eosinophils (Bld) [#/Vol] 0.30 10 3/mcL Normal 0.00-0.40 [facility] ([place]) Comment on above: Performed By: #### F T4, TSH, LIPID, FT3, A1C, GFR, CMP #### [place] [address] #### ADIFF, ANEU, CBC #### [address] [address] Eosinophils/100 WBC (Bld) 3.9 % Normal 0.0-7.0 [facility] ([place]) Comment on above: Performed By: #### F T4, TSH, LIPID, FT3, A1C, GFR, CMP #### [place] [address] #### ADIFF, ANEU, CBC #### [address] [address] Lymphocytes (Bld) [#/Vol] 2.20 10 3/mcL Normal 0.77-3.85 [facility] ([place]) Comment on above: Performed By: #### F T4, TSH, LIPID, FT3, A1C, GFR, CMP #### [place] [address] #### ADIFF, ANEU, CBC #### [address] [address] Lymphocytes/100 WBC (Bld) 26.8 % Normal 10.0-50.0 [facility] ([place]) Comment on above: Performed By: #### F T4, TSH, LIPID, FT3, A1C, GFR, CMP #### [place] [address] #### ADIFF, ANEU, CBC #### [address] [address] Monocytes/100 WBC (Bld) 6.6 % Normal 1.7-13.0 [facility] ([place]) Comment on above: Performed By: #### F T4, TSH, LIPID, FT3, A1C, GFR, CMP #### [place] [address] #### ADIFF, ANEU, CBC #### [address] [address] Neutrophils/100 WBC (Bld) 62.2 % Normal 37.0-80.0 [facility] ([place]) Comment on above: Performed By: #### F T4, TSH, LIPID, FT3, A1C, GFR, CMP #### [place] [address] #### ADIFF, ANEU, CBC #### [address] [address] .GFRon 12-14-2019 GFR 75 ml/min/1.73sqm Normal [facility] ([place]) Comment on above: Result Comment: GFR Population mean for , Non- Americans Ages 20-29 = 116 mL/min/1.73 sq.m. Ages 30-39 = 107 mL/min/1.73 sq.m. Ages 40-49 = 99 mL/min/1.73 sq.m. Ages 50-59 = 93 mL/min/1.73 sq.m. Ages 60-69 = 85 mL/min/1.73 sq.m. Ages 70+ = 75 mL/min/1.73 sq.m. Chronic Kidney Disease: Less than 60 mL/min/1.73 square meters End Stage Renal Disease: Less than 15 mL/min/1.73 square meters Performed By: #### U A, ADALBERTO #### [address] [address] GFR Non- 62 ml/min/1.73sqm Normal [facility] ([place]) Comment on above: Result Comment: GFR Population mean for , Non- Americans Ages 20-29 = 116 mL/min/1.73 sq.m. Ages 30-39 = 107 mL/min/1.73 sq.m. Ages 40-49 = 99 mL/min/1.73 sq.m. Ages 50-59 = 93 mL/min/1.73 sq.m. Ages 60-69 = 85 mL/min/1.73 sq.m. Ages 70+ = 75 mL/min/1.73 sq.m. Chronic Kidney Disease: Less than 60 mL/min/1.73 square meters End Stage Renal Disease: Less than 15 mL/min/1.73 square meters Performed By: #### U A, MALMARIA FERNANDA #### [address] [address] .NEUABSon 10-02-2019 Neutrophils (Bld) [#/Vol] 5.20 10 3/mcL Normal 2.85-6.16 [facility] ([place]) Comment on above: Performed By: #### F T4, TSH, LIPID, FT3, A1C, GFR, CMP #### [place] [address] #### ADSONIDO, ANEU, CBC #### [address] [address] [facility] 10-02-2019 Erythrocyte distribution width (RBC) [Ratio] 12.8 % Normal 11.5-14.5 [facility] ([place]) Comment on above: Performed By: #### F T4, TSH, LIPID, FT3, A1C, GFR, CMP #### [place] [address] #### ADSONIDO, ANEU, CBC #### [address] [address] Hematocrit (Bld) [Volume fraction] 42.1 % Normal 42.0-52.0 [facility] ([place]) Comment on above: Performed By: #### F T4, TSH, LIPID, FT3, A1C, GFR, CMP #### [place] [address] #### ADSONIDO, ANEU, CBC #### [address] [address] Hemoglobin (Bld) [Mass/Vol] 14.2 G/dL Normal 14.0-18.0 [facility] ([place]) Comment on above: Performed By: #### F T4, TSH, LIPID, FT3, A1C, GFR, CMP #### [place] [address] #### ADSONIDO, ANEU, CBC #### [address] [address] MCH (RBC) [Entitic mass] 31.5 pg High 27.0-31.2 [facility] ([place]) Comment on above: Performed By: #### F T4, TSH, LIPID, FT3, A1C, GFR, CMP #### [place] [address] #### ADIFF, ANEU, CBC #### [address] [address] MCHC (RBC) [Mass/Vol] 33.8 G/dL Normal 31.8-35.4 [facility] ([place]) Comment on above: Performed By: #### F T4, TSH, LIPID, FT3, A1C, GFR, CMP #### [address] [address] #### ADIFF, ANEU, CBC #### [address] [address] MCV (RBC) [Entitic vol] 93.0 fL Normal 80.0-94.0 [facility] ([place]) Comment on above: Performed By: #### F T4, TSH, LIPID, FT3, A1C, GFR, CMP #### [place] [address] #### ADIFF, ANEU, CBC #### [address] [address] Platelet mean volume (Bld) [Entitic vol] 8.1 fL Normal 7.4-10.4 [facility] ([place]) Comment on above: Performed By: #### F T4, TSH, LIPID, FT3, A1C, GFR, CMP #### [place] [address] #### ADIFF, ANEU, CBC #### [address] [address] Platelets (Bld) [#/Vol] 268 10 3/mcL Normal 130-400 [facility] ([place]) Comment on above: Performed By: #### F T4, TSH, LIPID, FT3, A1C, GFR, CMP #### [place] [address] #### ADIFF, ANEU, CBC #### [address] [address] RBC (Bld) [#/Vol] 4.53 10 6/mcL Normal 4.04-6.13 [facility] ([place]) Comment on above: Performed By: #### F T4, TSH, LIPID, FT3, A1C, GFR, CMP #### [place] [address] #### ADIFF, ANEU, CBC #### [address] [address] WBC (Bld) [#/Vol] 8.40 10 3/mcL Normal 4.60-10.80 [facility] ([place]) Comment on above: Performed By: #### F T4, TSH, LIPID, FT3, A1C, GFR, CMP #### [place] [address] #### ADIFF, ANEU, CBC #### [address] [address] CMPon 10-02-2019 Albumin [Mass/Vol] 4.0 G/dL Normal 3.5-5.0 [facility] ([place]) Comment on above: Performed By: #### F T4, TSH, LIPID, FT3, A1C, GFR, CMP #### [place] [address] #### ADIFF, ANEU, CBC #### [address] [address] Albumin/Globulin [Mass ratio] 1.2 {ratio} Normal 1.1-2.5 [facility] ([place]) Comment on above: Performed By: #### F T4, TSH, LIPID, FT3, A1C, GFR, CMP #### [place] [address] #### ADIFF, ANEU, CBC #### [address] [address] ALP [Catalytic activity/Vol] 41 U/L Normal 40-135 [facility] ([place]) Comment on above: Performed By: #### F T4, TSH, LIPID, FT3, A1C, GFR, CMP #### [place] [address] #### ADIFF, ANEU, CBC #### [address] [address] ALT [Catalytic activity/Vol] 35 U/L Normal 10-35 [facility] ([place]) Comment on above: Performed By: #### F T4, TSH, LIPID, FT3, A1C, GFR, CMP #### [place] [address] #### ADIFF, ANEU, CBC #### [address] [address] AST [Catalytic activity/Vol] 22 U/L Normal 10-40 [facility] ([place]) Comment on above: Performed By: #### F T4, TSH, LIPID, FT3, A1C, GFR, CMP #### [place] [address] #### ADIFF, ANEU, CBC #### [address] [address] Bili Total 0.5 mg/dL Normal 0.2-1.0 [facility] ([place]) Comment on above: Performed By: #### F T4, TSH, LIPID, FT3, A1C, GFR, CMP #### [place] [address] #### ADSONIDO, ANEU, CBC #### [address] [address] Calcium [Mass/Vol] 9.8 mg/dL Normal 8.4-10.2 [facility] ([place]) Comment on above: Performed By: #### F T4, TSH, LIPID, FT3, A1C, GFR, CMP #### [place] [address] #### ADSONIDO, ANEU, CBC #### [address] [address] Chloride [Moles/Vol] 105 mmol/L Normal 98-107 [facility] ([place]) Comment on above: Performed By: #### F T4, TSH, LIPID, FT3, A1C, GFR, CMP #### [place] [address] #### ADIFF, ANEU, CBC #### [address] [address] CO2 [Moles/Vol] 30 mmol/L High 22-29 [facility] ([place]) Comment on above: Performed By: #### F T4, TSH, LIPID, FT3, A1C, GFR, CMP #### [place] [address] #### ADIFF, ANEU, CBC #### [address] [address] Creatinine [Mass/Vol] 1.21 mg/dL Normal 0.70-1.30 [facility] ([place]) Comment on above: Performed By: #### F T4, TSH, LIPID, FT3, A1C, GFR, CMP #### [place] [address] #### ADIFF, ANEU, CBC #### [address] [address] Electrolyte Balance 8.0 mEq/L Normal [facility] ([place]) Comment on above: Performed By: #### F T4, TSH, LIPID, FT3, A1C, GFR, CMP #### [place] [address] #### ADIFF, ANEU, CBC #### [address] [address] Globulin (S) [Mass/Vol] 3.2 G/dL Normal [facility] ([place]) Comment on above: Performed By: #### F T4, TSH, LIPID, FT3, A1C, GFR, CMP #### [place] [address] #### ADIFF, ANEU, CBC #### [address] [address] Glucose [Mass/Vol] 103 mg/dL Normal 70-105 [facility] ([place]) Comment on above: Performed By: #### F T4, TSH, LIPID, FT3, A1C, GFR, CMP #### [place] [address] #### ADIFF, ANEU, CBC #### [address] [address] Potassium [Moles/Vol] 4.4 mmol/L Normal 3.5-5.1 [facility] ([place]) Comment on above: Performed By: #### F T4, TSH, LIPID, FT3, A1C, GFR, CMP #### [place] [address] #### ADIFF, ANEU, CBC #### [address] [address] Protein [Mass/Vol] 7.2 G/dL Normal 6.4-8.2 [facility] ([place]) Comment on above: Performed By: #### F T4, TSH, LIPID, FT3, A1C, GFR, CMP #### [place] [address] #### ADSONIDO, ANEU, CBC #### [address] [address] Sodium [Moles/Vol] 143 mmol/L Normal 136-145 [facility] ([place]) Comment on above: Performed By: #### F T4, TSH, LIPID, FT3, A1C, GFR, CMP #### [place] [address] #### ADSONIDO, ANEU, CBC #### [address] [address] Urea nitrogen [Mass/Vol] 18 mg/dL Normal 7-18 [facility] ([place]) Comment on above: Performed By: #### F T4, TSH, LIPID, FT3, A1C, GFR, CMP #### [place] [address] #### ADSONIDO, ANEU, CBC #### [address] [address] Urea nitrogen/Creatinine [Mass ratio] 15 ratio Normal 7-27 [facility] ([place]) Comment on above: Performed By: #### F T4, TSH, LIPID, FT3, A1C, GFR, CMP #### [place] [address] #### ADIFF, ANEU, CBC #### [address] [address] FT3on 10-02-2019 Free T3 [Mass/Vol] 2.91 pg/mL Normal 2.30-4.00 [facility] ([place]) Comment on above: Performed By: #### F T4, TSH, LIPID, FT3, A1C, GFR, CMP #### [address] [address] #### ADIFF, ANEU, CBC #### [address] [address] FT4on 10-02-2019 Free T4 [Mass/Vol] 1.00 ng/dL Normal 0.76-1.46 [facility] ([place]) Comment on above: Performed By: #### F T4, TSH, LIPID, FT3, A1C, GFR, CMP #### [address] [address] #### ADIFF, ANEU, CBC #### [address] [address] LIPIDon 10-02-2019 Cholesterol [Mass/Vol] 173 mg/dL Normal 0-200 [facility] ([place]) Comment on above: Result Comment: Chol esterol Reference Interval: Less than 200 Desirable 200-239 Borderline high risk 240 and above High risk Performed By: #### F T4, TSH, LIPID, FT3, A1C, GFR, CMP #### [place] [address] #### ADIFF, ANEU, CBC #### [address] [address] Cholesterol in HDL [Mass/Vol] 50 mg/dL Normal 40-60 [facility] ([place]) Comment on above: Performed By: #### F T4, TSH, LIPID, FT3, A1C, GFR, CMP #### [address] [address] #### ADIFF, ANEU, CBC #### [address] [address] Cholesterol in LDL [Mass/Vol] 102 mg/dL Normal 0-130 [facility] ([place]) Comment on above: Performed By: #### F T4, TSH, LIPID, FT3, A1C, GFR, CMP #### [place] [address] #### ADIFF, ANEU, CBC #### [address] [address] Triglyceride [Mass/Vol] 103 mg/dL Normal 0-150 [facility] ([place]) Comment on above: Result Comment: Trig lyceride Reference Interval: Less than 150 Normal 150-199 Borderline high risk 200-499 High risk 500 or higher Very high risk Performed By: #### F T4, TSH, LIPID, FT3, A1C, GFR, CMP #### [place] [address] #### ADIFF, ANEU, CBC #### [address] [address] MALBRon 10-02-2019 U Creatinine 136.0 mg/dL Normal [facility] ([place]) Comment on above: Performed By: #### ADALBERTO Rodriguez #### [place] [address] U Microalb 2717 mcg/dL Normal [facility] ([place]) Comment on above: Performed By: #### ADALBERTO Rodriguez #### [place] [address] U Ratio Alb/Cre 20.0 mcg/mg High 0.0-16.9 [facility] ([place]) Comment on above: Performed By: #### ADALBERTO Rodriguez #### [place] [address] TSHon 10-02-2019 TSH Qn 2.11 mcIU/mL Normal 0.36-3.74 [facility] ([place]) Comment on above: Performed By: #### F T4, TSH, LIPID, FT3, A1C, GFR, CMP #### [place] [address] #### ADIFF, ANEU, CBC #### [address] [address] UAon 10-02-2019 Color (U) Yellow Normal [facility] ([place]) Comment on above: Performed By: #### Heri Trejo MALBR #### [place] [address] Glucose (U) [Mass/Vol] Negative Normal Negative [facility] ([place]) Comment on above: Performed By: #### U Maya, MALBR #### [address] [address] Ketones Ql (U) Negative Normal Negative [facility] ([place]) Comment on above: Performed By: #### U Maya, MALBR #### [address] [address] UA Appear Clear Normal Clear [facility] ([place]) Comment on above: Performed By: #### Heri Trejo, MALBR #### [place] [address] UA Blood Negative Normal Negative [facility] ([place]) Comment on above: Performed By: #### Heri Trejo, MALBR #### [place] [address] UA Leuk Est Negative Normal Negative [facility] ([place]) Comment on above: Performed By: #### Heri Trejo, MALBR #### [place] [address] UA Nitrite Negative Normal Negative [facility] ([place]) Comment on above: Performed By: #### Heri Trejo, MALBR #### [place] [address] UA pH 7.0 Normal 5.0 - 8.0 [facility] ([place]) Comment on above: Performed By: #### Heri Trejo, MALBR #### [place] [address] UA Protein Negative Normal Negative [facility] ([place]) Comment on above: Performed By: #### Heri Trejo, MALBR #### [place] [address] UA Spec Grav 1.020 Normal 1.015-1.025 [facility] ([place]) Comment on above: Performed By: #### Heri Trejo, MALBR #### [place] [address] UA Specimen Type Void Normal [facility] ([place]) Comment on above: Performed By: #### U Maya, MALBR #### [place] [address] UA Urobilinogen 0.2 E.U./dL Normal 0.2-1.0 [facility] ([place]) Comment on above: Performed By: #### U A, MALBR #### [facility] [address] [place] [address] Urobilinogen Qn (U) Negative Normal Negative [facility] ([place]) Comment on above: Performed By: #### U A, MALBR #### [address] [address] CALCIFEDIOL (27890)Ordered B y: Centerless Grinder on 05-12-2017 25-Hydroxyvitamin D2+25-Hydroxyvitamin D3 [Mass/Vol] 31.7 ng/mL Normal 30.0-100.0 [facility] Work Phone: Comment on above: Vitamin D deficiency has been defined by the [place] ofMedicine and an Endocrine Society practice guideline as alevel of serum 25-OH vitamin D less than 20 ng/mL (1,2).The Endocrine Society went on to further define vitamin Dinsufficiency as a level between 21 and 29 ng/mL (2).1. IOM ([place] of Medicine). 2010. Dietary reference intakes for calcium and D. [place]: The National Academies Press.2. Claudette MF, Jay NC, Destini STONE, et al. Evaluation, treatment, and prevention of vitamin D deficiency: an Endocrine Society clinical practice guideline. JCEM. 2010; 96(7):1911-30. PATIENT WAS FASTINGP ERFORMED BY: [place] [id number] HGB A1C (88025)Ordered By: S ystem Dehydrogenation Converter Helper on 05-12-2017 HbA1c (Bld) [Mass fraction] 6.4 % Abnormal 4.8-5.6 [facility] Work Phone: Comment on above: . Pre-diabetes: 5.7 - 6.4 Diabetes: >6.4 Glycemic control for adults with diabetes: <7.0 PATIENT WAS FASTINGP ERFORMED BY: Aviasales6370 [address] [place] [id number] LIPID PANEL (99517)Ordered B y: Centerless Grinder on 05-12-2017 Cholesterol [Mass/Vol] 170 mg/dL Normal 100-199 [facility] Work Phone: Comment on above: PATIENT WAS FASTINGP ERFORMED BY: ISRA Guerra6370 [facility] [id number] Cholesterol in HDL [Mass/Vol] 58 mg/dL Normal [facility] Work Phone: Comment on above: PATIENT WAS FASTINGP ERFORMED BY: ISRA Guerra6370 [facility] [id number] Cholesterol in LDL [Mass/Vol] 91 mg/dL Normal 0-99 [facility] Work Phone: Comment on above: PATIENT WAS FASTINGP ERFORMED BY: ISRA Guerra6370 [facility] [id number] Cholesterol in LDL/Cholesterol in HDL [Mass ratio] 1.6 {ratio_units} Normal 0.0-3.6 [facility] Work Phone: Comment on above: LDL/HDL Ratio Men Wo men 1/2 Avg.Risk 1.0 1.5 Avg.Risk 3.6 3.2 2X Avg.Risk 6.2 5.0 3X Avg.Risk 8.0 6.1 PATIENT WAS FASTINGP ERFORMED BY: ISRA Guerra6370 [facility] [id number] Cholesterol in VLDL [Mass/Vol] 21 mg/dL Normal 5-40 [facility] Work Phone: Comment on above: PATIENT WAS FASTINGP ERFORMED BY: ISRA Guerra6370 [facility] [id number] Triglyceride [Mass/Vol] 105 mg/dL Normal 0-149 [facility] Work Phone: Comment on above: PATIENT WAS FASTINGP ERFORMED BY: ISRA Suárezlin6370 [facility] [id number] METABOLIC PANEL, COMPREHENSI VE (29955)Ordered By: Centerless Grinder on 05-12-2017 Albumin [Mass/Vol] 4.2 g/dL Normal 3.5-5.5 [facility] Internal Medicine Work Phone: Comment on above: PATIENT WAS FASTINGP ERFORMED BY: ISRA [facility] Uwbruk8864 [address]Dublin [place] [id number] Albumin/Globulin [Mass ratio] 1.6 {ratio} Normal 1.2-2.2 [facility] Work Phone: Comment on above: PATIENT WAS FASTINGP ERFORMED BY: ISRA [facility] Cgnarz9858 [address] RoadDublin [place] [id number] ALP [Catalytic activity/Vol] 35 [iU]/L Abnormal 39-117 [facility] Work Phone: Comment on above: PATIENT WAS FASTINGP ERFORMED BY: ISRA [facility] Ovaevh6308 [address]Dublin [place] [id number] ALP [Catalytic activity/Vol] 35 U/L Abnormal 39-117 [facility]; [facility] Work Phone: Comment on above: PATIENT WAS FASTINGP ERFORMED BY: ISRA LabCoisa SuárezJgtrwb9772 [address] RoadDublin [place] [id number] ALT [Catalytic activity/Vol] 19 [iU]/L Normal 0-44 [facility] Work Phone: Comment on above: PATIENT WAS FASTINGP ERFORMED BY: ISRA LabCoisa Aozhhh0898 [address] RoadDublin [place] [id number] ALT [Catalytic activity/Vol] 19 U/L Normal 0-44 [facility]; [facility] Work Phone: Comment on above: PATIENT WAS FASTINGP ERFORMED BY: ISRA [facility] Phfzgw1928 [address]Dublin [place] [id number] AST [Catalytic activity/Vol] 16 [iU]/L Normal 0-40 [facility] Work Phone: Comment on above: PATIENT WAS FASTINGP ERFORMED BY: ISRA [facility] Egpyix99[address]Dublin [place] [id number] AST [Catalytic activity/Vol] 16 U/L Normal 0-40 [facility]; [facility] Work Phone: Comment on above: PATIENT WAS FASTINGP ERFORMED BY: ISRA [facility] Obmtqt8762 [address]Dublin [place] [id number] Bilirubin [Mass/Vol] 0.6 mg/dL Normal 0.0-1.2 [facility] Work Phone: Comment on above: PATIENT WAS FASTINGP ERFORMED BY: [facility] Agivml4104 [address]Dublin [place] [id number] Calcium [Mass/Vol] 9.4 mg/dL Normal 8.7-10.2 [facility] Internal Medicine Work Phone: Comment on above: PATIENT WAS FASTINGP ERFORMED BY: [facility] Xacfnc1810 [address]Dublin [place] [id number] Chloride [Moles/Vol] 99 mmol/L Normal 96-106 [facility] Work Phone: Comment on above: PATIENT WAS FASTINGP ERFORMED BY: [facility] Outsmh4515 [address]Dublin [place] [id number] CO2 [Moles/Vol] 21 mmol/L Normal 18-29 [facility] Internal Medicine Work Phone: Comment on above: PATIENT WAS FASTINGP ERFORMED BY: [facility] Jniwcj3703 [address]Dublin [place] [id number] Creatinine [Mass/Vol] 1.26 mg/dL Normal 0.76-1.27 [facility] Internal Medicine Work Phone: Comment on above: PATIENT WAS FASTINGP ERFORMED BY: [facility] Fgnkdh4750 [address]Dublin [place] [id number] GFR/1.73 sq M predicted among blacks CKD-EPI (S/P/Bld) [Vol rate/Area] 74 mL/min/1.73 Normal [facility] Work Phone: Comment on above: PATIENT WAS FASTINGP ERFORMED BY: [facility] Xsipuy0184 [address]Dublin [place] [id number] GFR/1.73 sq M predicted among non-blacks CKD-EPI (S/P/Bld) [Vol rate/Area] 64 mL/min/1.73 Normal [facility] Work Phone: Comment on above: PATIENT WAS FASTINGP ERFORMED BY: ISRA [facility] Afrsit6462 [address]Dublin [place] [id number] Globulin (S) [Mass/Vol] 2.7 g/dL Normal 1.5-4.5 [facility] Internal Medicine Work Phone: Comment on above: PATIENT WAS FASTINGP ERFORMED BY: ISRA [facility] Xdxyem3056 [address]Dublin [place] [id number] Glucose [Mass/Vol] 99 mg/dL Normal 65-99 [facility] Internal Medicine Work Phone: Comment on above: PATIENT WAS FASTINGP ERFORMED BY: ISRA [facility] Dmqzyf4672 [address]Dublin [place] [id number] Potassium [Moles/Vol] 4.3 mmol/L Normal 3.5-5.2 [facility] Internal Medicine Work Phone: Comment on above: PATIENT WAS FASTINGP ERFORMED BY: ISRA LabCoisa SuárezSbaaxp8014 [address]Dublin [place] [id number] Protein [Mass/Vol] 6.9 g/dL Normal 6.0-8.5 [facility] Internal Medicine Work Phone: Comment on above: PATIENT WAS FASTINGP ERFORMED BY: ISRA LabCoisa Pdqouv9886 [address]Dublin [place] [id number] Sodium [Moles/Vol] 141 mmol/L Normal 134-144 [facility] Internal Medicine Work Phone: Comment on above: PATIENT WAS FASTINGP ERFORMED BY: ISRA [facility] Qmxaic4089 [address]Dublin [place] [id number] Urea nitrogen [Mass/Vol] 12 mg/dL Normal 6-24 [facility] Internal Medicine Work Phone: Comment on above: PATIENT WAS FASTINGP ERFORMED BY: ISRA [facility] Azunzd2442 [address]Dublin [place] [id number] Urea nitrogen/Creatinine [Mass ratio] 10 mg/mg Normal 9-20 [facility] Internal Medicine Work Phone: Comment on above: PATIENT WAS FASTINGP ERFORMED BY: ISRA [facility] Cmgzjk2183 [address]Dublin [place] [id number] MICROALB;CREAT RATION, RAND UR ([id number])Ordered By: Centerless Grinder on 05-12-2017 Albumin DL <= 20 mg/L (U) [Mass/Vol] 39.0 ug/mL Normal [facility] Work Phone: Comment on above: PATIENT WAS FASTINGP ERFORMED BY: Aviasales6370 [facility] [id number] Albumin/Creatinine (U) [Mass ratio] 11.1 {mg/g_creat} Normal 0.0-30.0 [facility] Work Phone: Comment on above: PATIENT WAS FASTINGP ERFORMED BY: Aviasales6370 [facility] [id number] Creatinine (U) [Mass/Vol] 352.5 mg/dL Normal [facility] Work Phone: Comment on above: PATIENT WAS FASTINGP ERFORMED BY: [facility] [id number] PSA (PROSTATE SPECIFIC ANTIG EN) (56811)Ordered By: Centerless Grinder on 05-12-2017 Prostate specific Ag [Mass/Vol] 0.9 ng/mL Normal 0.0-4.0 [facility] Work Phone: Comment on above: [employer] ECLIA methodol ogy. .According to the [place] [employer], Serum PSA shoulddecrease and remain at undetectable levels after radicalprostatectomy. The AUA defines biochemical recurrence as an initialPSA value 0.2 ng/mL or greater followed by a subsequent confirmatoryPSA value 0.2 ng/mL or greater.Values obtained with different assay methods or kits cannot be usedinterchangeably. Results cannot be interpreted as absolute evidenceof the presence or absence of malignant disease. PATIENT WAS FASTINGP ERFORMED BY: Aviasales6370 [facility] [id number] Rapid Flu (78088 x 2)Ordered By: Zelda Fitzgerald on 05-12-2017 FLUAV Ag IA Ql (Throat) Negative Normal [facility] Work Phone: FLUAV Ag IA Ql (Throat) Negative Normal [facility]; [facility] Work Phone: TSH (THYROID STIMULATING HOR DAVID) ([id number])Ordered By: Centerless Grinder on 05-12-2017 TSH Qn 1.130 {uIU/mL} Normal 0.450-4.500 Comprehen sive Internal Medicine Work Phone: Comment on above: PATIENT WAS FASTINGP ERFORMED BY: ISRA [facility] Xbzodb6939 [address] RoadDublin [place] [id number] URINALYSIS ([id number])Ordered By : Centerless Grinder on 05-12-2017 Appearance (U) Clear Normal Comprehens brent [facility] Work Phone: Comment on above: PATIENT WAS FASTINGP ERFORMED BY: ISRA [facility] Pbgsay5287 [address] RoadDublin [place] [id number]; will review on 8 Bilirubin Ql (U) Negative Normal Comprehe nsive Internal Medicine Work Phone: Comment on above: PATIENT WAS FASTINGP ERFORMED BY: ISRA [facility] Vaebar0920 [address] RoadDublin [place] [id number]; will review on 05/22 Bilirubin Ql (U) Negative Normal Comprehe nsive Internal Medicine; [facility] Work Phone: Comment on above: PATIENT WAS FASTINGP ERFORMED BY: ISRA [facility] Jsaacb4266 [address] RoadDublin [place] [id number]; will review on 05/22 Color (U) Yellow Normal [facility] Work Phone: Comment on above: PATIENT WAS FASTINGP ERFORMED BY: ISRA [facility] Wxzqjz5842 [address] RoadDublin [place] [id number]; will review on 83 Glucose Ql (U) Negative Normal Comprehens brent [facility] Work Phone: Comment on above: PATIENT WAS FASTINGP ERFORMED BY: ISRA [facility] Ukznkz6095 [address] RoadDublin [place] [id number]; will review on 8/3 Glucose Ql (U) Negative Normal Comprehens b[facility]; [facility] Work Phone: Comment on above: PATIENT WAS FASTINGP ERFORMED BY: ISRA LabJd Ytlmzt1531 [address] RoadDublin [place] [id number]; will review on 05/22 Hemoglobin Ql (U) Trace Abnormal Compreh ensive Internal Medicine Work Phone: Comment on above: PATIENT WAS FASTINGP ERFORMED BY: ISRA LabCoisa SuárezLaltug4275 [address] RoadDublin [place] [id number]; will review on 05/22 Ketones Ql (U) Trace Abnormal Comprehens brent [facility] Work Phone: Comment on above: PATIENT WAS FASTINGP ERFORMED BY: ISRA LabJd Qwgmak2992 [address] RoadDublin [place] [id number]; will review on 05/22 Leukocyte esterase Test strip Ql (U) Negative Normal [facility] Work Phone: Comment on above: PATIENT WAS FASTINGP ERFORMED BY: ISRA LabJd SuárezTjvmts6694 [address] RoadDublin [place] [id number]; will review on 05/22 Leukocyte esterase Test strip Ql (U) Negative Normal [facility]; [facility] Work Phone: Comment on above: PATIENT WAS FASTINGP ERFORMED BY: ISRA LabJd SuárezGkyvle5183 [address] RoadDublin [place] [id number]; will review on 05/22 Microscopic observation LM Nom (Urine sed) See below: Normal [facility] Work Phone: Comment on above: Microscopic was gio cated and was performed. PATIENT WAS FASTINGP ERFORMED BY: ISRA [facility] Gyteqq7482 [address] RoadDublin [place] [id number]; will review on 05/22 Nitrite Ql (U) Negative Normal Comprehens brent [facility] Work Phone: Comment on above: PATIENT WAS FASTINGP ERFORMED BY: ISRA LabCoisa Duzznq8527 [address] RoadDublin [place] [id number]; will review on 05/22 Nitrite Ql (U) Negative Normal Comprehens b[facility]; [facility] Work Phone: Comment on above: PATIENT WAS FASTINGP ERFORMED BY: ISRA LabCoisa Ljnpob7455 [address] RoadDublin [place] [id number]; will review on 05/22 pH (U) 6.0 [pH] Normal 5.0-7.5 [facility] Internal Medicine Work Phone: Comment on above: PATIENT WAS FASTINGP ERFORMED BY: ISRA [facility] Wzhtdo1522 [address] RoadDublin [place] [id number]; will review on 05/22 Protein Ql (U) Trace Normal Comprehens brent [facility] Work Phone: Comment on above: PATIENT WAS FASTINGP ERFORMED BY: ISRA [facility] Srgien9926 [address] Roadblin [place] [id number]; will review on 05/22 Specific gravity (U) [Rel density] 1.028 1 Normal 1.005-1.030 [facility] Internal Medicine Work Phone: Comment on above: PATIENT WAS FASTINGP ERFORMED BY: ISRA [facility] Ireiyb0659 [address] RoadKind[facility] [id number]; will review on 05/22 Urobilinogen (U) [Mass/Vol] 0.2 mg/dL Normal 0.2-1.0 [facility]; [facility] Work Phone: Comment on above: PATIENT WAS FASTINGP ERFORMED BY: ISRA [facility] Vpoyrs[address] [facility] [id number]; will review on 05/22 Urobilinogen Test strip (U) [Mass/Vol] 0.2 mg/dL Normal 0.2-1.0 [facility] Work Phone: Comment on above: PATIENT WAS FASTINGP ERFORMED BY: ISRA [facility] Nndjiw2201 [address] RoadDorothea Dix Hospitalin [place] [id number]; will review on 05/22 DEONTE CULTURE-OTHER ([id number])Ord ered By: Centerless Grinder on 01-26-2016 Bacteria identified Respiratory culture Nom (Unsp spec) RRF Normal [facility] Work Phone: Comment on above: Routine respiratory pal PATIENT NOT FASTINGP ERFORMED BY: ISRA [facility] Tlenxn[address] [facility] [id number] Information: SRC:THRT [id number] Bacteria identified Respiratory culture Nom (Unsp spec) Final report Normal [facility] Work Phone: Comment on above: PATIENT NOT FASTINGP ERFORMED BY: ISRA Rec[facility] Qgygbu8383 SorianoKindred Hospital [id number] Information: SRC:JOSE R [id number] Rapid Strep Test, Office ([id number] 267)Ordered By: Zelda Fitzgerald on 01-26-2016 S. pyogenes Ag EIA Ql (Throat) Negative Normal [facility]; [facility] Work Phone: S. pyogenes Ag IA Ql (Unsp spec) Negative Normal [facility] Work Phone: CALCIFEDIOL ([id number])Ordered B y: Centerless Grinder on 10-31-2015 25-Hydroxyvitamin D2+25-Hydroxyvitamin D3 [Mass/Vol] 19.4 ng/mL Abnormal 30.0-100.0 [facility] Work Phone: Comment on above: Vitamin D deficiency has been defined by the [place] ofMedicine and an Endocrine Society practice guideline as alevel of serum 25-OH vitamin D less than 20 ng/mL (1,2).The Endocrine Society went on to further define vitamin Dinsufficiency as a level between 21 and 29 ng/mL (2).1. IOM ([place] of Medicine). 2010. Dietary reference intakes for calcium and D. [place]: The National Academies Press.2. Claudette MF, Jay NC, Destini STONE, et al. Evaluation, treatment, and prevention of vitamin D deficiency: an Endocrine Society clinical practice guideline. JCEM. 2010; 96(7):1911-30. PATIENT NOT FASTINGP ERFORMED BY: [employer] Eng[employer]rp Zrfken7626 [facility] [id number] CBC, PLATELETS & MANUAL DIFF ([id number])Ordered By: Centerless Grinder on 10-31-2015 Basophils (Bld) [#/Vol] 0.0 {x10E3/uL} Normal 0.0-0.2 [facility] Work Phone: Comment on above: PATIENT NOT FASTINGP ERFORMED BY: [employer] Htezfz7348 [facility] [id number] Information: [id number], [id number] Basophils (Bld) [#/Vol] 0.0 10*3/uL Normal 0.0-0.2 [facility]; [facility] Work Phone: Comment on above: PATIENT NOT FASTINGP ERFORMED BY: [facility]6370 [facility] [id number] Information: [id number], [id number] Basophils/100 WBC (Bld) 0 % Normal [facility] Work Phone: Comment on above: PATIENT NOT FASTINGP ERFORMED BY: [facility]6370 [facility] [id number] Information: [id number], [id number] Eosinophils (Bld) [#/Vol] 0.3 {x10E3/uL} Normal 0.0-0.4 [facility] Work Phone: Comment on above: PATIENT NOT FASTINGP ERFORMED BY: [facility]well [facility] [facility] [id number] Information: [id number], 705644 Eosinophils (Bld) [#/Vol] 0.3 10*3/uL Normal 0.0-0.4 [facility]; [facility] Work Phone: Comment on above: PATIENT NOT FASTINGP ERFORMED BY: [facility] [facility] [id number] Information: [id number], [id number] Eosinophils/100 WBC (Bld) 4 % Normal [facility] Work Phone: Comment on above: PATIENT NOT FASTINGP ERFORMED BY: LabCoThe [facility] Salem CountyIatreg5929 [facility] [id number] Information: [id number], 081889 Erythrocyte distribution width (RBC) [Ratio] 13.3 % Normal 12.3-15.4 [facility] Work Phone: Comment on above: PATIENT NOT FASTINGP ERFORMED BY: LabCoThe [facility] Salem CountyCpjlsw8660 [facility] [id number] Information: [id number], [id number] Hematocrit (Bld) [Volume fraction] 41.5 % Normal 37.5-51.0 [facility] Work Phone: Comment on above: PATIENT NOT FASTINGP ERFORMED BY: ISRA Lane Aukwxz3998 [facility] [id number] Information: [id number] 811503 Hemoglobin (Bld) [Mass/Vol] 13.6 g/dL Normal 12.6-17.7 [facility] Work Phone: Comment on above: PATIENT NOT FASTINGP ERFORMED BY: ISRA [facility] Rrjqda6660 [facility] [id number] Information: [id number] 460651 Immature granulocytes (Bld) [#/Vol] 0.0 {x10E3/uL} Normal 0.0-0.1 [facility] Work Phone: Comment on above: PATIENT NOT FASTINGP ERFORMED BY: ISRA [facility] [facility] [id number] Information: [id number] Immature granulocytes (Bld) [#/Vol] 0.0 10*3/uL Normal 0.0-0.1 [facility]; [facility] Work Phone: Comment on above: PATIENT NOT FASTINGP ERFORMED BY: ISRA [facility] Pjgkdn2742 [facility] [id number] Information: [id number], [id number] Immature granulocytes/100 WBC (Bld) 0 % Normal [facility] Work Phone: Comment on above: PATIENT NOT FASTINGP ERFORMED BY: [facility] [facility] [id number] Information: [id number], 286126 Lymphocytes (Bld) [#/Vol] 2.5 {x10E3/uL} Normal 0.7-3.1 [facility] Work Phone: Comment on above: PATIENT NOT FASTINGP ERFORMED BY: [facility] [facility] [id number] Information: Y86884, 729021 Lymphocytes (Bld) [#/Vol] 2.5 10*3/uL Normal 0.7-3.1 [facility]; [facility] Work Phone: Comment on above: PATIENT NOT FASTINGP ERFORMED BY: [facility] [facility] [id number] Information: [id number] 088007 Lymphocytes/100 WBC (Bld) 33 % Normal [facility] Work Phone: Comment on above: PATIENT NOT FASTINGP ERFORMED BY: ISRA [place]aiJeff[place] 1710270 [facility] [id number] Information: [id number], 833434 MCH (RBC) [Entitic mass] 30.3 pg Normal 26.6-33.0 [facility] Internal Medicine Work Phone: Comment on above: PATIENT NOT FASTINGP ERFORMED BY: [facility]6[address] [facility] [id number] Information: [id number], 724899 MCHC (RBC) [Mass/Vol] 32.8 g/dL Normal 31.5-35.7 [facility] Internal Medicine Work Phone: Comment on above: PATIENT NOT FASTINGP ERFORMED BY: [facility]6[address] [facility] [id number] Information: [id number], 288406 MCV (RBC) [Entitic vol] 92 fL Normal 79-97 [facility] Internal Medicine Work Phone: Comment on above: PATIENT NOT FASTINGP ERFORMED BY: [facility]Har[facility]6[address] [facility] [id number] Information: [id number], 845397 Monocytes (Bld) [#/Vol] 0.5 {x10E3/uL} Normal 0.1-0.9 [facility] Work Phone: Comment on above: PATIENT NOT FASTINGP ERFORMED BY: ISRA Guerra6[address] [facility] [id number] Information: Y41808, 614129 Monocytes (Bld) [#/Vol] 0.5 10*3/uL Normal 0.1-0.9 [facility]; [facility] Work Phone: Comment on above: PATIENT NOT FASTINGP ERFORMED BY: ISRA Becerra [facility] [id number] Information: [id number], 243368 Monocytes/100 WBC (Bld) 7 % Normal [facility] Work Phone: Comment on above: PATIENT NOT FASTINGP ERFORMED BY: ISRA Becerra [facility] [id number] Information: [id number], 229269 Neutrophils (Bld) [#/Vol] 4.2 {x10E3/uL} Normal 1.4-7.0 [facility] Work Phone: Comment on above: PATIENT NOT FASTINGP ERFORMED BY: ISRA Guerra6[address] [facility] [id number] Information: [id number], 982299 Neutrophils (Bld) [#/Vol] 4.2 10*3/uL Normal 1.4-7.0 [facility]; [facility] Work Phone: Comment on above: PATIENT NOT FASTINGP ERFORMED BY: ISRA Guerra6[address] [facility] [id number] Information: [id number], 451359 Neutrophils/100 WBC (Bld) 56 % Normal [facility] Work Phone: Comment on above: PATIENT NOT FASTINGP ERFORMED BY: ISRA Guerra6[address] [facility] [id number] Information: [id number], 087825 Platelets (Bld) [#/Vol] 274 {x10E3/uL} Normal 150-379 [facility] Work Phone: Comment on above: PATIENT NOT FASTINGP ERFORMED BY: CB Kenyetta Guerra6[address] [facility] [id number] Information: [id number], 357063 Platelets (Bld) [#/Vol] 274 10*3/uL Normal 150-379 [facility]; [facility] Work Phone: Comment on above: PATIENT NOT FASTINGP ERFORMED BY: ISRA Guerra6[address] [facility] [id number] Information: W75351, 809211 RBC (Bld) [#/Vol] 4.49 {x10E6/uL} Normal 4.14-5.80 [facility] Internal Medicine Work Phone: Comment on above: PATIENT NOT FASTINGP ERFORMED BY: ISRA Guerra6[address] [facility] [id number] Information: S76043, 633734 RBC (Bld) [#/Vol] 4.49 10*6/uL Normal 4.14-5.80 [facility] Internal Medicine; [facility] Work Phone: Comment on above: PATIENT NOT FASTINGP ERFORMED BY: ISRA Sherman Jraido2[address] [facility] [id number] Information: E51855, 201831 WBC (Bld) [#/Vol] 7.4 {x10E3/uL} Normal 3.4-10.8 [facility] Internal Medicine Work Phone: Comment on above: PATIENT NOT FASTINGP ERFORMED BY: ISRA Sherman Pltjqf5314 [facility] [id number] Information: S46510, 774005 WBC (Bld) [#/Vol] 7.4 10*3/uL Normal 3.4-10.8 [facility] Internal Medicine; [facility] Work Phone: Comment on above: PATIENT NOT FASTINGP ERFORMED BY: ISRA LaiCoisa GuerraXcgxtw3823 [facility] [id number] Information: N02639, 136058 HEMOGLOBIN GLYCLATED (HGB A1 C) (04576)Ordered By: Centerless Grinder on 10-31-2015 HbA1c (Bld) [Mass fraction] 6.0 % Abnormal 4.8-5.6 [facility] Work Phone: Comment on above: . Pre-diabetes: 5.7 - 6.4 Diabetes: >6.4 Glycemic control for adults with diabetes: <7.0 PATIENT NOT FASTINGP ERFORMED BY: ISRA LabCoisa Ptqlrd3291 [address] [facility]in [place] [id number] LIPID PANEL (18995)Ordered B y: Centerless Grinder on 10-31-2015 Cholesterol [Mass/Vol] 169 mg/dL Normal 100-199 [facility] Internal Medicine Work Phone: Comment on above: PATIENT NOT FASTINGP ERFORMED BY: ISRA LabCoisa SuárezAwdaek[address] [facility] [place] [id number] Cholesterol in HDL [Mass/Vol] 50 mg/dL Normal [facility] Work Phone: Comment on above: According to ATP-III Guidelines, HDL-C >59 mg/dL is considered anegative risk factor for CHD. PATIENT NOT FASTINGP ERFORMED BY: ISRA LabCoisa Fylwum4821 [address] realSociableDorothea Dix Hospitalin [place] [id number] Cholesterol in LDL [Mass/Vol] 89 mg/dL Normal 0-99 [facility] Work Phone: Comment on above: PATIENT NOT FASTINGP ERFORMED BY: ISRA [facility] Luwekm[address] [facility] [id number] Cholesterol in LDL/Cholesterol in HDL [Mass ratio] 1.8 {ratio_units} Normal 0.0-3.6 [facility] Work Phone: Comment on above: LDL/HDL Ratio Men Wo men 1/2 Avg.Risk 1.0 1.5 Avg.Risk 3.6 3.2 2X Avg.Risk 6.2 5.0 3X Avg.Risk 8.0 6.1 PATIENT NOT FASTINGP ERFORMED BY: ISRA [facility] Fplzig2383 [address] [facility]in [place] [id number] Cholesterol in VLDL [Mass/Vol] 30 mg/dL Normal 5-40 [facility] Work Phone: Comment on above: PATIENT NOT FASTINGP ERFORMED BY: CB [facility] Okwunf5066 [address] RoadDublin [place] [id number] Triglyceride [Mass/Vol] 150 mg/dL Abnormal 0-149 [facility] Work Phone: Comment on above: PATIENT NOT FASTINGP ERFORMED BY: CB [facility] Yxupvw7043 [address] RoadDublin [place] [id number] METABOLIC PANEL, COMPREHENSI VE (56301)Ordered By: Centerless Grinder on 10-31-2015 Albumin [Mass/Vol] 4.3 g/dL Normal 3.5-5.5 [facility] Internal Medicine Work Phone: Comment on above: PATIENT NOT FASTINGP ERFORMED BY: CB [facility] Uxeobo3950 [address] RoadDublin [place] [id number] Albumin/Globulin [Mass ratio] 1.9 {ratio} Normal 1.1-2.5 [facility] Work Phone: Comment on above: PATIENT NOT FASTINGP ERFORMED BY: CB [facility] Xgbtee5542 [address] RoadDublin [place] [id number] ALP [Catalytic activity/Vol] 38 [iU]/L Abnormal 39-117 [facility] Work Phone: Comment on above: PATIENT NOT FASTINGP ERFORMED BY: CB [facility] Vlbndg2374 [address] RoadDublin [place] [id number] ALP [Catalytic activity/Vol] 38 U/L Abnormal 39-117 [facility]; [facility] Work Phone: Comment on above: PATIENT NOT FASTINGP ERFORMED BY: CB [facility] Ktntjj8559 [address] RoadDublin [place] [id number] ALT [Catalytic activity/Vol] 25 [iU]/L Normal 0-44 [facility] Work Phone: Comment on above: PATIENT NOT FASTINGP ERFORMED BY: CB [facility] Gblpnp3591 [address] RoadDublin [place] [id number] ALT [Catalytic activity/Vol] 25 U/L Normal 0-44 [facility]; [facility] Work Phone: Comment on above: PATIENT NOT FASTINGP ERFORMED BY: CB [facility] Glogyl8426 [address] RoadDublin [place] [id number] AST [Catalytic activity/Vol] 24 [iU]/L Normal 0-40 [facility] Work Phone: Comment on above: PATIENT NOT FASTINGP ERFORMED BY: CB [facility] Lsqabk0895 [address] RoadDublin [place] [id number] AST [Catalytic activity/Vol] 24 U/L Normal 0-40 [facility]; [facility] Work Phone: Comment on above: PATIENT NOT FASTINGP ERFORMED BY: CB [facility] Whwmwl0565 [address] RoadDublin [place] [id number] Bilirubin [Mass/Vol] 0.4 mg/dL Normal 0.0-1.2 [facility]ensive Internal [facility] Work Phone: Comment on above: PATIENT NOT FASTINGP ERFORMED BY: ISRA [facility] Vtagse4421 [address] RoadDublin [place] [id number] Calcium [Mass/Vol] 9.5 mg/dL Normal 8.7-10.2 [facility] Internal Medicine Work Phone: Comment on above: PATIENT NOT FASTINGP ERFORMED BY: ISRA [facility] Htnwav8507 [address] RoadDublin [place] [id number] Chloride [Moles/Vol] 104 mmol/L Normal 97-108 [facility] Centerensive [facility] Work Phone: Comment on above: PATIENT NOT FASTINGP ERFORMED BY: CB [facility] Agpnyp1135 [address] RoadDublin [place] [id number] CO2 [Moles/Vol] 25 mmol/L Normal 18-29 [facility] Internal Medicine Work Phone: Comment on above: PATIENT NOT FASTINGP ERFORMED BY: CB [facility] Pcjrlk9685 [address] RoadDublin [place] [id number] Creatinine [Mass/Vol] 1.03 mg/dL Normal 0.76-1.27 [facility] Internal Medicine Work Phone: Comment on above: PATIENT NOT FASTINGP ERFORMED BY: CB [facility] Qxckfc4241 [address] RoadDublin [place] [id number] GFR/1.73 sq M predicted among blacks CKD-EPI (S/P/Bld) [Vol rate/Area] 95 mL/min/1.73 Normal [facility] Work Phone: Comment on above: PATIENT NOT FASTINGP ERFORMED BY: ISRA [facility] Frlyya7033 [address] Roadblin [place] [id number] GFR/1.73 sq M predicted among non-blacks CKD-EPI (S/P/Bld) [Vol rate/Area] 83 mL/min/1.73 Normal [facility] Work Phone: Comment on above: PATIENT NOT FASTINGP ERFORMED BY: [facility] Ivxzpu9185 [address] Roadblin [place] [id number] Globulin (S) [Mass/Vol] 2.3 g/dL Normal 1.5-4.5 [facility] Internal Medicine Work Phone: Comment on above: PATIENT NOT FASTINGP ERFORMED BY: [facility] Pydthd0886 [address] [facility]in [place] [id number] Glucose [Mass/Vol] 90 mg/dL Normal 65-99 [facility] Internal Medicine Work Phone: Comment on above: PATIENT NOT FASTINGP ERFORMED BY: LabReid Qblsxd3875 [address] [facility] Hospitalblin [place] [id number] Potassium [Moles/Vol] 4.4 mmol/L Normal 3.5-5.2 [facility]erens[facility] Internal [facility] Work Phone: Comment on above: PATIENT NOT FASTINGP ERFORMED BY: LabCo Ppfixk3163 [address] [facility] HospitalD[facility] [place] [id number] Protein [Mass/Vol] 6.6 g/dL Normal 6.0-8.5 [facility] Internal Medicine Work Phone: Comment on above: PATIENT NOT FASTINGP ERFORMED BY: LabCo Fcurwe2249 [address] [facility] Hospitalblin [place] [id number] Sodium [Moles/Vol] 144 mmol/L Normal 134-144 [facility] Internal Medicine Work Phone: Comment on above: PATIENT NOT FASTINGP ERFORMED BY: CB [facility] Ezskji7677 [address] RoadDublin [place] [id number] Urea nitrogen [Mass/Vol] 15 mg/dL Normal 6-24 [facility] Work Phone: Comment on above: PATIENT NOT FASTINGP ERFORMED BY: CB [facility] Hchrfu1695 [address] RoadDublin [place] [id number] Urea nitrogen/Creatinine [Mass ratio] 15 mg/mg Normal 9-20 [facility] Work Phone: Comment on above: PATIENT NOT FASTINGP ERFORMED BY: CB [facility] Xehiqr2274 [address] RoadDublin [place] [id number] MICROALB;CREAT RATION, XAVIER CAMPUZANO (77895)Ordered By: Centerless Grinder on 10-31-2015 Albumin DL <= 20 mg/L (U) [Mass/Vol] 13.7 ug/mL Normal 0.0-17.0 [facility] Work Phone: Comment on above: PATIENT NOT FASTINGP ERFORMED BY: CB [facility] Rnthpi5399 [address] RoadDublin [place] [id number] Albumin/Creatinine (U) [Mass ratio] 6.7 {mg/g_creat} Normal 0.0-30.0 [facility] Work Phone: Comment on above: PATIENT NOT FASTINGP ERFORMED BY: CB [facility] Xmrvfd6717 [address] RoadDublin [place] [id number] Creatinine (U) [Mass/Vol] 204.4 mg/dL Normal 22.0-328.0 [facility] Work Phone: Comment on above: PATIENT NOT FASTINGP ERFORMED BY: CB [facility] Hduqgr5318 [address] RoadDublin [place] [id number] PSA (PROSTATE SPECIFIC ANTIG EN) (V76.44)Ordered By: Centerless Grinder on 10-31-2015 Prostate specific Ag [Mass/Vol] 1.2 ng/mL Normal 0.0-4.0 [facility] Work Phone: Comment on above: Ayde ECLIA methodol ogy. .According to the [place] [employer], Serum PSA shoulddecrease and remain at undetectable levels after radicalprostatectomy. The AUA defines biochemical recurrence as an initialPSA value 0.2 ng/mL or greater followed by a subsequent confirmatoryPSA value 0.2 ng/mL or greater.Values obtained with different assay methods or kits cannot be usedinterchangeably. Results cannot be interpreted as absolute evidenceof the presence or absence of malignant disease. PATIENT NOT FASTINGP ERFORMED BY: CB [facility] Fskgfy5665 [address] RoadDublin [place] [id number] TSH (THYROID STIMULATING HOR DAVID) (54833)Ordered By: Centerless Grinder on 10-31-2015 TSH Qn 1.290 {uIU/mL} Normal 0.450-4.500 Comprehen sive Internal Medicine Work Phone: Comment on above: PATIENT NOT FASTINGP ERFORMED BY: CB [facility] Dbpbfz7114 [address] RoadDublin [place] [id number] URINALYSIS (50837)Ordered By : Centerless Grinder on 10-31-2015 Appearance (U) Clear Normal Comprehens brent Internal Medicine Work Phone: Comment on above: PATIENT NOT FASTINGP ERFORMED BY: CB [facility] Wxzdqn7541 [address] RoadDublin [place] [id number] Bilirubin Ql (U) Negative Normal Comprehe nsive Internal Medicine Work Phone: Comment on above: PATIENT NOT FASTINGP ERFORMED BY: CB [facility] Tzlkft4826 [address] RoadDublin [place] [id number] Bilirubin Ql (U) Negative Normal Comprehe nsive Internal Medicine; [facility] Work Phone: Comment on above: PATIENT NOT FASTINGP ERFORMED BY: CB [facility] Uujpcs4208 [address] RoadDublin [place] [id number] Color (U) Yellow Normal [facility] Work Phone: Comment on above: PATIENT NOT FASTINGP ERFORMED BY: CB [facility] Fmxmns9802 [address]Dublin [place] [id number] Glucose Ql (U) Negative Normal Comprehens brent Internal Medicine Work Phone: Comment on above: PATIENT NOT FASTINGP ERFORMED BY: CB [facility] Ypzgpm2247 [address] RoadDublin [place] [id number] Glucose Ql (U) Negative Normal Comprehens brent Internal Medicine; [facility] Work Phone: Comment on above: PATIENT NOT FASTINGP ERFORMED BY: ISRA Laneisa SuárezOygouv3046 [address] RoadDublin [place] [id number] Hemoglobin Ql (U) Negative Normal Compreh ensive Internal Medicine Work Phone: Comment on above: PATIENT NOT FASTINGP ERFORMED BY: ISRA [facility] Xosoqy4711 [address] RoadDublin [place] [id number] Hemoglobin Ql (U) Negative Normal Compreh ensive Internal Medicine; [facility] Work Phone: Comment on above: PATIENT NOT FASTINGP ERFORMED BY: ISRA [facility] Fquiar9648 [address] RoadDublin [place] [id number] Ketones Ql (U) Negative Normal Comprehens brent Internal Medicine Work Phone: Comment on above: PATIENT NOT FASTINGP ERFORMED BY: ISRA [facility] Smbhxv4894 [address] RoadDuin [place] [id number] Ketones Ql (U) Negative Normal Comprehens brent [facility] Medicine; [facility] Work Phone: Comment on above: PATIENT NOT FASTINGP ERFORMED BY: ISRA [facility] Jsgjhd5373 [address] RoadDublin [place] [id number] Leukocyte esterase Test strip Ql (U) Negative Normal [facility] Work Phone: Comment on above: PATIENT NOT FASTINGP ERFORMED BY: [facility] Xaqabz6673 [address] RoadDublin [place] [id number] Leukocyte esterase Test strip Ql (U) Negative Normal [facility]; [facility] Work Phone: Comment on above: PATIENT NOT FASTINGP ERFORMED BY: ISRA [facility] Jfmipw1713 [address] RoadDublin [place] [id number] Microscopic observation LM Nom (Urine sed) MICNIP Normal [facility] Work Phone: Comment on above: Microscopic not gio cated and not performed. PATIENT NOT FASTINGP ERFORMED BY: CB [facility] Iccjjj9613 [address] RoadDublin [place] [id number] Nitrite Ql (U) Negative Normal Comprehens brent Internal Medicine Work Phone: Comment on above: PATIENT NOT FASTINGP ERFORMED BY: ISRA [facility] Gubcor4744 [address] RoadDublin [place] [id number] Nitrite Ql (U) Negative Normal Comprehens brent [facility]; [facility] Work Phone: Comment on above: PATIENT NOT FASTINGP ERFORMED BY: ISRA [facility] Rlxkqv2148 [address] RoadDublin [place] [id number] pH (U) 6.0 [pH] Normal 5.0-7.5 [facility] Work Phone: Comment on above: PATIENT NOT FASTINGP ERFORMED BY: ISRA [facility] Uisejo6253 [address] RoadDublin [place] [id number] Protein Ql (U) Negative Normal Comprehens brent Internal Medicine Work Phone: Comment on above: PATIENT NOT FASTINGP ERFORMED BY: LabCo Lepjvn1257 [address] RoadDublin [place] [id number] Protein Ql (U) Negative Normal Comprehens brent Internal Medicine; [facility] Work Phone: Comment on above: PATIENT NOT FASTINGP ERFORMED BY: ISRA [facility] Gdylca3418 [address] RoadDublin [place] [id number] Specific gravity (U) [Rel density] 1.023 1 Normal 1.005-1.030 [facility] Work Phone: Comment on above: PATIENT NOT FASTINGP ERFORMED BY: [facility] Iipseo4268 [address] RoadDublin [place] [id number] Urobilinogen (U) [Mass/Vol] 0.2 mg/dL Normal 0.2-1.0 [facility]; [facility] Work Phone: Comment on above: PATIENT NOT FASTINGP ERFORMED BY: [facility] Eucyqv7221 [address] RoadDublin [place] [id number] Urobilinogen Test strip (U) [Mass/Vol] 0.2 mg/dL Normal 0.2-1.0 Comprehensi Internal Medicine Work Phone: Comment on above: PATIENT NOT FASTINGP ERFORMED BY: ISRA Guerra6370 [facility] [id number] Hemoglobin Glyclated (HGB A1 C) (17370)Ordered By: Centerless Grinder on 10-04-2014 HbA1c (Bld) [Mass fraction] 5.5 % Normal 4.8-5.6 [facility] Work Phone: Comment on above: . Increased risk for diabetes: 5.7 - 6.4 Diabetes: >6.4 Glycemic control for adults with diabetes: <7.0 PATIENT NOT FASTINGP ERFORMED BY: ISRA Guerra6370 [facility] [id number] Information: [id number] Blood Glucose , Office (8296 2)Ordered By: Omayra Medina on 05-20-2014 Glucose Glucometer (BldC) [Moles/Vol] 110 1 Normal [facility] Work Phone: CBC WITH MANUAL DIFF (86931) Ordered By: Centerless Grinder on 05-20-2014 Basophils (Bld) [#/Vol] 0.0 {x10E3/uL} Normal 0.0-0.2 [facility] Work Phone: Comment on above: PATIENT WAS FASTINGP ERFORMED BY: ISRA Suárezlin6370 [facility] [id number] Information: 528887,F14536 Basophils (Bld) [#/Vol] 0.0 10*3/uL Normal 0.0-0.2 [facility]; [facility] Work Phone: Comment on above: PATIENT WAS FASTINGP ERFORMED BY: ISRA Suárezlin6370 [facility] [id number] Information: 732820,A64507 Basophils/100 WBC (Bld) 0 % Normal 0-3 [facility] Work Phone: Comment on above: PATIENT WAS FASTINGP ERFORMED BY: ISRA Suárezlin6370 [facility] [id number] Information: 607557,G21270 Eosinophils (Bld) [#/Vol] 0.4 {x10E3/uL} Normal 0.0-0.4 [facility] Work Phone: Comment on above: PATIENT WAS FASTINGP ERFORMED BY: [address] [id number] Information: [id number],D55537 Eosinophils (Bld) [#/Vol] 0.4 10*3/uL Normal 0.0-0.4 [facility]; [facility] Work Phone: Comment on above: PATIENT WAS FASTINGP ERFORMED BY: [address] [id number] Information: 900781,D31572 Eosinophils/100 WBC (Bld) 5 % Normal 0-5 [facility] Work Phone: Comment on above: PATIENT WAS FASTINGP ERFORMED BY: [address] [id number] Information: 605197,Z82415 Erythrocyte distribution width (RBC) [Ratio] 13.2 % Normal 12.3-15.4 [facility] Work Phone: Comment on above: PATIENT WAS FASTINGP ERFORMED BY: [address] [id number] Information: 189812,K22927 Hematocrit (Bld) [Volume fraction] 39.5 % Normal 37.5-51.0 [facility] Work Phone: Comment on above: PATIENT WAS FASTINGP ERFORMED BY: [place] 7949170 [facility] [id number] Information: 536739,I19194 Hemoglobin (Bld) [Mass/Vol] 13.4 g/dL Normal 12.6-17.7 [facility] Work Phone: Comment on above: PATIENT WAS FASTINGP ERFORMED BY: [address] [place] [id number] Information: [id number],E35113 Immature granulocytes (Bld) [#/Vol] 0.0 {x10E3/uL} Normal 0.0-0.1 [facility] Work Phone: Comment on above: PATIENT WAS FASTINGP ERFORMED BY: [address] [id number] Information: [id number] Immature granulocytes (Bld) [#/Vol] 0.0 10*3/uL Normal 0.0-0.1 [facility]; [facility] Work Phone: Comment on above: PATIENT WAS FASTINGP ERFORMED BY: Lane St[address] [id number] Information: [id number] Immature granulocytes/100 WBC (Bld) 0 % Normal 0-2 [facility] Work Phone: Comment on above: PATIENT WAS FASTINGP ERFORMED BY: [address] [id number] Information: [id number] Lymphocytes (Bld) [#/Vol] 2.5 {x10E3/uL} Normal 0.7-3.1 [facility] Work Phone: Comment on above: PATIENT WAS FASTINGP ERFORMED BY: [address] [id number] Information: [id number] Lymphocytes (Bld) [#/Vol] 2.5 10*3/uL Normal 0.7-3.1 [facility]; [facility] Work Phone: Comment on above: PATIENT WAS FASTINGP ERFORMED BY: MingJeffrey V[place] 1710270 [facility] [id number] Information: [id number] Lymphocytes/100 WBC (Bld) 32 % Normal 14-46 [facility] Work Phone: Comment on above: PATIENT WAS FASTINGP ERFORMED BY: [place] 7949170 [facility] [id number] Information: [id number] MCH (RBC) [Entitic mass] 30.7 pg Normal 26.6-33.0 [facility] Internal Medicine Work Phone: Comment on above: PATIENT WAS FASTINGP ERFORMED BY: [address] [id number] Information: [id number] MCHC (RBC) [Mass/Vol] 33.9 g/dL Normal 31.5-35.7 [facility] Internal Medicine Work Phone: Comment on above: PATIENT WAS FASTINGP ERFORMED BY: [address] [id number] Information: [id number] MCV (RBC) [Entitic vol] 91 fL Normal 79-97 [facility] Internal Medicine Work Phone: Comment on above: PATIENT WAS FASTINGP ERFORMED BY: [address] [id number] Information: [id number] Monocytes (Bld) [#/Vol] 0.4 {x10E3/uL} Normal 0.1-0.9 [facility] Internal Medicine Work Phone: Comment on above: PATIENT WAS FASTINGP ERFORMED BY: [address] [id number] Information: [id number] Monocytes (Bld) [#/Vol] 0.4 10*3/uL Normal 0.1-0.9 [facility]; [facility] Work Phone: Comment on above: PATIENT WAS FASTINGP ERFORMED BY: [address] [id number] Information: [id number] Monocytes/100 WBC (Bld) 6 % Normal 4-12 [facility] Work Phone: Comment on above: PATIENT WAS FASTINGP ERFORMED BY: ISRA Kenyetta Guerra6370 [facility] [id number] Information: [id number],[id number] Neutrophils (Bld) [#/Vol] 4.4 {x10E3/uL} Normal 1.4-7.0 [facility] Work Phone: Comment on above: PATIENT WAS FASTINGP ERFORMED BY: ISRA Kenyetta Guerra[address] [facility] [id number] Information: [id number],[id number] Neutrophils (Bld) [#/Vol] 4.4 10*3/uL Normal 1.4-7.0 [facility]; [facility] Internal Medicine Work Phone: Comment on above: PATIENT WAS FASTINGP ERFORMED BY: ISRA Kenyetta Guerra6370 [facility] [id number] Information: 244858,[id number] Neutrophils/100 WBC (Bld) 57 % Normal 40-74 [facility] Work Phone: Comment on above: PATIENT WAS FASTINGP ERFORMED BY: IRSA Kenyetta Guerra6370 [facility] [id number] Information: [id number] Platelets (Bld) [#/Vol] 255 {x10E3/uL} Normal 150-379 [facility] Work Phone: Comment on above: PATIENT WAS FASTINGP ERFORMED BY: ISRA Lane Tfvutc3268 [facility] [id number] Information: [id number] Platelets (Bld) [#/Vol] 255 10*3/uL Normal 150-379 [facility]; [facility] Internal Medicine Work Phone: Comment on above: PATIENT WAS FASTINGP ERFORMED BY: ISRA Kenyetta Suárezlin[address] [facility]in [place] [id number] Information: [id number] RBC (Bld) [#/Vol] 4.36 {x10E6/uL} Normal 4.14-5.80 [facility] Work Phone: Comment on above: PATIENT WAS FASTINGP ERFORMED BY: ISRA [facility] Mlastt7521 [facility] [id number] Information: [id number],[id number] RBC (Bld) [#/Vol] 4.36 10*6/uL Normal 4.14-5.80 [facility] Internal Medicine; [facility] Work Phone: Comment on above: PATIENT WAS FASTINGP ERFORMED BY: ISRA [facility] Dpjzln0590 [facility] [id number] Information: [id number],[id number] WBC (Bld) [#/Vol] 7.8 {x10E3/uL} Normal 3.4-10.8 [facility] Internal Medicine Work Phone: Comment on above: PATIENT WAS FASTINGP ERFORMED BY: ISRA [facility] Kfocbc7344 [facility] [id number] Information: [id number] WBC (Bld) [#/Vol] 7.8 10*3/uL Normal 3.4-10.8 [facility] Internal Medicine; [facility] Work Phone: Comment on above: PATIENT WAS FASTINGP ERFORMED BY: ISRA [facility] Zlpnjg2481 [facility] [id number] Information: 511842,[id number] HgA1C , Office (40490)Ordere d By: Omayra Medina on 05-20-2014 HbA1c (Bld) [Mass fraction] 6.1 % Normal 4.6 - 7.1 [facility] Work Phone: LIPID PANEL ([phone])Ordered B y: Centerless Grinder on 05-20-2014 Cholesterol [Mass/Vol] 158 mg/dL Normal 100-199 [facility] Internal Medicine Work Phone: Comment on above: PATIENT WAS FASTINGP ERFORMED BY: ISRA [facility] Epwwvl7612 [facility] [id number] Cholesterol in HDL [Mass/Vol] 43 mg/dL Normal [facility] Work Phone: Comment on above: According to ATP-III Guidelines, HDL-C >59 mg/dL is considered anegative risk factor for CHD. PATIENT WAS FASTINGP ERFORMED BY: CB [facility] Fvwssu1966 [address] RoadDublin [place] [id number] Cholesterol in LDL [Mass/Vol] 93 mg/dL Normal 0-99 [facility] Work Phone: Comment on above: PATIENT WAS FASTINGP ERFORMED BY: CB [facility] Zzwogk4183 [address] RoadDublin [place] [id number] Cholesterol in LDL/Cholesterol in HDL [Mass ratio] 2.2 {ratio_units} Normal 0.0-3.6 [facility] Work Phone: Comment on above: PATIENT WAS FASTINGP ERFORMED BY: CB [facility] Vdpfcp9337 [address] RoadDublin [place] [id number] Cholesterol in VLDL [Mass/Vol] 22 mg/dL Normal 5-40 [facility] Work Phone: Comment on above: PATIENT WAS FASTINGP ERFORMED BY: CB [facility] Knpquk5051 [address] RoadDublin [place] [id number] Triglyceride [Mass/Vol] 111 mg/dL Normal 0-149 [facility] Work Phone: Comment on above: PATIENT WAS FASTINGP ERFORMED BY: CB [facility] Bbgauw2320 [address] RoadDublin [place] [id number] METABOLIC PANEL, COMPREHENSI VE (82362)Ordered By: Centerless Grinder on 05-20-2014 Albumin [Mass/Vol] 4.6 g/dL Normal 3.5-5.5 [facility] Internal Medicine Work Phone: Comment on above: PATIENT WAS FASTINGP ERFORMED BY: CB [facility] Cglici2778 [address] RoadDublin [place] [id number] Albumin/Globulin [Mass ratio] 2.4 {ratio} Normal 1.1-2.5 [facility] Work Phone: Comment on above: PATIENT WAS FASTINGP ERFORMED BY: CB [facility] Bzprkk5059 [address] RoadDublin [place] [id number] ALP [Catalytic activity/Vol] 39 [iU]/L Normal 39-117 [facility] Work Phone: Comment on above: PATIENT WAS FASTINGP ERFORMED BY: [facility] Bpvokl9373 [address] RoadDublin [place] [id number] ALP [Catalytic activity/Vol] 39 U/L Normal 39-117 [facility]; [facility] Work Phone: Comment on above: PATIENT WAS FASTINGP ERFORMED BY: [facility] Xrbcpj3007 [address] RoadDublin [place] [id number] ALT [Catalytic activity/Vol] 23 [iU]/L Normal 0-44 [facility] Work Phone: Comment on above: PATIENT WAS FASTINGP ERFORMED BY: [facility] Hnmzac0550 [address] RoadDublin [place] [id number] ALT [Catalytic activity/Vol] 23 U/L Normal 0-44 [facility]; [facility] Work Phone: Comment on above: PATIENT WAS FASTINGP ERFORMED BY: [facility] Pbwoxm8160 [address] RoadDublin [place] [id number] AST [Catalytic activity/Vol] 21 [iU]/L Normal 0-40 [facility] Work Phone: Comment on above: PATIENT WAS FASTINGP ERFORMED BY: [facility] Scydax1496 [address] RoadDublin [place] [id number] AST [Catalytic activity/Vol] 21 U/L Normal 0-40 [facility]; [facility] Work Phone: Comment on above: PATIENT WAS FASTINGP ERFORMED BY: [facility] Gnugtm7900 [address] RoadDublin [place] [id number] Bilirubin [Mass/Vol] 0.3 mg/dL Normal 0.0-1.2 [facility] Internal Medicine Work Phone: Comment on above: PATIENT WAS FASTINGP ERFORMED BY: [facility] Xvnpnh2372 [address] RoadDublin [place] [id number] Calcium [Mass/Vol] 9.6 mg/dL Normal 8.7-10.2 [facility] Internal Medicine Work Phone: Comment on above: PATIENT WAS FASTINGP ERFORMED BY: CB [facility] Ccayop6355 [address] RoadDublin [place] [id number] Chloride [Moles/Vol] 103 mmol/L Normal 97-108 [facility] Work Phone: Comment on above: PATIENT WAS FASTINGP ERFORMED BY: CB [facility] Klbycm2833 [address] RoadDublin [place] [id number] CO2 [Moles/Vol] 24 mmol/L Normal 18-29 [facility] Work Phone: Comment on above: PATIENT WAS FASTINGP ERFORMED BY: CB [facility] Nkgsrf3764 [address] RoadDublin [place] [id number] Creatinine [Mass/Vol] 1.09 mg/dL Normal 0.76-1.27 [facility] Internal Medicine Work Phone: Comment on above: PATIENT WAS FASTINGP ERFORMED BY: CB [facility] Czixie2241 [address] RoadDublin [place] [id number] GFR/1.73 sq M predicted among blacks CKD-EPI (S/P/Bld) [Vol rate/Area] 90 mL/min/1.73 Normal [facility] Work Phone: Comment on above: PATIENT WAS FASTINGP ERFORMED BY: [facility] Dynill0477 [address] RoadDublin [place] [id number] GFR/1.73 sq M predicted among non-blacks CKD-EPI (S/P/Bld) [Vol rate/Area] 78 mL/min/1.73 Normal [facility] Work Phone: Comment on above: PATIENT WAS FASTINGP ERFORMED BY: CB [facility] Tmbxow7150 [address] RoadDublin [place] [id number] Globulin (S) [Mass/Vol] 1.9 g/dL Normal 1.5-4.5 [facility] Work Phone: Comment on above: PATIENT WAS FASTINGP ERFORMED BY: CB [facility] Divmkq6650 [address] RoadDublin [place] [id number] Glucose [Mass/Vol] 112 mg/dL Abnormal 65-99 [facility] Internal Medicine Work Phone: Comment on above: PATIENT WAS FASTINGP ERFORMED BY: ISRA [facility] Esfuqj9326 [address] RoadDublin [place] [id number] Potassium [Moles/Vol] 4.4 mmol/L Normal 3.5-5.2 [facility] Internal Medicine Work Phone: Comment on above: PATIENT WAS FASTINGP ERFORMED BY: ISRA [facility] Mjtrfw4340 [address] RoadDublin [place] [id number] Protein [Mass/Vol] 6.5 g/dL Normal 6.0-8.5 [facility] Internal Medicine Work Phone: Comment on above: PATIENT WAS FASTINGP ERFORMED BY: ISRA [facility] Sldszr3430 [address] RoadDublin [place] [id number] Sodium [Moles/Vol] 142 mmol/L Normal 134-144 [facility] Internal Medicine Work Phone: Comment on above: PATIENT WAS FASTINGP ERFORMED BY: ISRA [facility] Ridsdj4412 [address] RoadDublin [place] [id number] Urea nitrogen [Mass/Vol] 19 mg/dL Normal 6-24 [facility] Internal Medicine Work Phone: Comment on above: PATIENT WAS FASTINGP ERFORMED BY: ISRA [facility] Errxyk8003 [address] RoadDublin [place] [id number] Urea nitrogen/Creatinine [Mass ratio] 17 mg/mg Normal 9-20 [facility] Internal Medicine Work Phone: Comment on above: PATIENT WAS FASTINGP ERFORMED BY: ISRA [facility] Sclnuw4939 [address] RoadDublin [place] [id number] MICROALBUMINOrdered By: Syst em Dehydrogenation Converter Helper on 05-20-2014 Albumin DL <= 20 mg/L (U) [Mass/Vol] 11.7 ug/mL Normal 0.0-17.0 [facility] Internal Medicine Work Phone: Comment on above: PATIENT WAS FASTINGP ERFORMED BY: ISRA [facility] Vxldsx9082 [address] RoadDublin [place] [id number] Albumin/Creatinine (U) [Mass ratio] 6.0 {mg/g_creat} Normal 0.0-30.0 [facility] Work Phone: Comment on above: PATIENT WAS FASTINGP ERFORMED BY: ISRA Laneisa SuárezVfcjxs8853 [address] RoadDublin [place] [id number] Creatinine (U) [Mass/Vol] 194.4 mg/dL Normal 22.0-328.0 [facility] Work Phone: Comment on above: PATIENT WAS FASTINGP ERFORMED BY: ISRA Lab[facility] Hggpsh0469 [address] Roadblin [place] [id number] TSH (42547)Ordered By: ZootRocke m Dehydrogenation Converter Helper on 05-20-2014 TSH Qn 1.320 {uIU/mL} Normal 0.450-4.500 [facility] Internal Medicine Work Phone: Comment on above: PATIENT WAS FASTINGP ERFORMED BY: ISRA Suárezlin6370 [address] Roadblin [place] [id number] URINALYSIS, W/ MICRO (85538) Ordered By: Centerless Grinder on 05-20-2014 Appearance (U) Clear Normal Comprehens brent Internal Medicine Work Phone: Comment on above: PATIENT WAS FASTINGP ERFORMED BY: ISRA LabReidisa SuárezBsjqym7659 [address] RoadDublin [place] [id number] Bilirubin Ql (U) Negative Normal Comprehe nsive Internal Medicine Work Phone: Comment on above: PATIENT WAS FASTINGP ERFORMED BY: ISRA Lab[facility] Hefjym7316 [address] Roadblin [place] [id number] Bilirubin Ql (U) Negative Normal Comprehe nsive Internal Medicine; [facility] Work Phone: Comment on above: PATIENT WAS FASTINGP ERFORMED BY: ISRA [facility] Xnrbdp8096 [address] RoadDublin [place] [id number] Color (U) Yellow Normal [facility] Work Phone: Comment on above: PATIENT WAS FASTINGP ERFORMED BY: ISRA LabJd SuárezNzwovo1648 [address] RoadDublin [place] [id number] Glucose Ql (U) Negative Normal Comprehens [facility] Internal Medicine Work Phone: Comment on above: PATIENT WAS FASTINGP ERFORMED BY: ISRA [facility] Ehhevx6201 [address] RoadDublin [place] [id number] Glucose Ql (U) Negative Normal Comprehens [facility]; [facility] Work Phone: Comment on above: PATIENT WAS FASTINGP ERFORMED BY: ISRA [facility] Kmwajm7411 [address] RoadDublin [place] [id number] Hemoglobin Ql (U) Negative Normal Compreh ensive Internal Medicine Work Phone: Comment on above: PATIENT WAS FASTINGP ERFORMED BY: ISRA [facility] Qvasry3939 [address] RoadDublin [place] [id number] Hemoglobin Ql (U) Negative Normal Compreh ensive Internal Medicine; [facility] Work Phone: Comment on above: PATIENT WAS FASTINGP ERFORMED BY: ISRA [facility] Doxwyo8111 [address] RoadDublin [place] [id number] Ketones Ql (U) Negative Normal Comprehens [facility] Internal Medicine Work Phone: Comment on above: PATIENT WAS FASTINGP ERFORMED BY: ISRA [facility] Lfiaiz0117 [address] RoadDublin [place] [id number] Ketones Ql (U) Negative Normal Comprehens [facility]rent [facility]; [facility] Work Phone: Comment on above: PATIENT WAS FASTINGP ERFORMED BY: ISRA [facility] Tfiffp4049 [address] RoadDublin [place] [id number] Leukocyte esterase Test strip Ql (U) Negative Normal [facility] Work Phone: Comment on above: PATIENT WAS FASTINGP ERFORMED BY: ISRA [facility] Zimbmk9012 [address] RoadDublin [place] [id number] Leukocyte esterase Test strip Ql (U) Negative Normal [facility]; [facility] Work Phone: Comment on above: PATIENT WAS FASTINGP ERFORMED BY: ISRA [facility] Lbzdza0879 [address] RoadDublin [place] [id number] Microscopic observation LM Nom (Urine sed) See below: Normal [facility] Work Phone: Comment on above: Microscopic was gio cated and was performed. PATIENT WAS FASTINGP ERFORMED BY: ISRA [facility] Iytrti2172 [address] RoadDublin [place] [id number] Microscopic observation LM Nom (Urine sed) MICRON Normal [facility] Work Phone: Comment on above: Microscopic follows if indicated. PATIENT WAS FASTINGP ERFORMED BY: ISRA LabCoisa SuárezSytfto0229 [address] RoadDublin [place] [id number] Nitrite Ql (U) Negative Normal Comprehens [facility] Internal Medicine Work Phone: Comment on above: PATIENT WAS FASTINGP ERFORMED BY: ISRA [facility] Gzfiks7831 [address] RoadDublin [place] [id number] Nitrite Ql (U) Negative Normal Comprehens brent [facility]; [facility] Work Phone: Comment on above: PATIENT WAS FASTINGP ERFORMED BY: ISRA Guerra6370 [address] RoadDorothea Dix Hospitalin [place] [id number] pH (U) 6.0 [pH] Normal 5.0-7.5 [facility] Work Phone: Comment on above: PATIENT WAS FASTINGP ERFORMED BY: ISRA Suárezlin6370 [address] RoadDorothea Dix Hospitalin [place] [id number] Protein Ql (U) Negative Normal Comprehens [facility] Internal Medicine Work Phone: Comment on above: PATIENT WAS FASTINGP ERFORMED BY: ISRA LaiCosia SuárezRdspli4298 [address] RoadDublin [place] [id number] Protein Ql (U) Negative Normal Comprehens brent [facility]; [facility] Work Phone: Comment on above: PATIENT WAS FASTINGP ERFORMED BY: ISRA [facility] Tdctmk6808 [address] RoadDublin [place] [id number] Specific gravity (U) [Rel density] 1.024 1 Normal 1.005-1.030 [facility] Work Phone: Comment on above: PATIENT WAS FASTINGP ERFORMED BY: ISRA [facility] Simvln9044 [address] RoadDublin [place] [id number] Urobilinogen (U) [Mass/Vol] 0.2 mg/dL Normal 0.0-1.9 [facility]; [facility] Work Phone: Comment on above: PATIENT WAS FASTINGP ERFORMED BY: [facility]6370 [facility] [id number] Urobilinogen Test strip (U) [Mass/Vol] 0.2 mg/dL Normal 0.0-1.9 Comprehensi Internal Medicine Work Phone: Comment on above: PATIENT WAS FASTINGP ERFORMED BY: [facility]6370 [facility] [id number] Blood Glucose , Office ([phone])Ordered By: Omayra Medina on 01-14-2014 Glucose Glucometer (BldC) [Moles/Vol] 103 1 Normal [facility] Work Phone: CBC WITH MANUAL DIFF (25136) Ordered By: Centerless Grinder on 01-14-2014 Basophils (Bld) [#/Vol] 0.0 {x10E3/uL} Normal 0.0-0.2 [facility] Internal Medicine Work Phone: Comment on above: PATIENT WAS FASTINGP ERFORMED BY: [facility]6370 [facility] [id number] Information: [id number] Basophils (Bld) [#/Vol] 0.0 10*3/uL Normal 0.0-0.2 [facility]; [facility] Work Phone: Comment on above: PATIENT WAS FASTINGP ERFORMED BY: [facility]6370 [facility] [id number] Information: 615443,[id number] Basophils/100 WBC (Bld) 0 % Normal 0-3 [facility] Work Phone: Comment on above: PATIENT WAS FASTINGP ERFORMED BY: [facility]6370 [facility] [id number] Information: [id number],[id number] Eosinophils (Bld) [#/Vol] 0.3 {x10E3/uL} Normal 0.0-0.4 [facility] Work Phone: Comment on above: PATIENT WAS FASTINGP ERFORMED BY: [place] 7949170 [facility] [id number] Information: [id number] Eosinophils (Bld) [#/Vol] 0.3 10*3/uL Normal 0.0-0.4 [facility]; [facility] Work Phone: Comment on above: PATIENT WAS FASTINGP ERFORMED BY: [address] [id number] Information: [id number] Eosinophils/100 WBC (Bld) 3 % Normal 0-5 [facility] Work Phone: Comment on above: PATIENT WAS FASTINGP ERFORMED BY: [address] [id number] Information: 095403,[id number] Erythrocyte distribution width (RBC) [Ratio] 13.5 % Normal 12.3-15.4 [facility] Work Phone: Comment on above: PATIENT WAS FASTINGP ERFORMED BY: [address] [id number] Information: 530469,[id number] Hematocrit (Bld) [Volume fraction] 42.2 % Normal 37.5-51.0 [facility] Work Phone: Comment on above: PATIENT WAS FASTINGP ERFORMED BY: [address] [id number] Information: 900298,F54811 Hemoglobin (Bld) [Mass/Vol] 13.6 g/dL Normal 12.6-17.7 [facility] Work Phone: Comment on above: PATIENT WAS FASTINGP ERFORMED BY: [address] [id number] Information: [id number] Immature granulocytes (Bld) [#/Vol] 0.0 {x10E3/uL} Normal 0.0-0.1 [facility] Work Phone: Comment on above: PATIENT WAS FASTINGP ERFORMED BY: ISRA Guerra6370 [facility] [id number] Information: [id number] Immature granulocytes (Bld) [#/Vol] 0.0 10*3/uL Normal 0.0-0.1 [facility]; [facility] Work Phone: Comment on above: PATIENT WAS FASTINGP ERFORMED BY: [facility] Fugwhz[address] [id number] Information: [id number],G35117 Immature granulocytes/100 WBC (Bld) 0 % Normal 0-2 [facility] Work Phone: Comment on above: PATIENT WAS FASTINGP ERFORMED BY: Ming[address] [id number] Information: 094606,Z10486 Lymphocytes (Bld) [#/Vol] 2.8 {x10E3/uL} Normal 0.7-3.1 [facility] Work Phone: Comment on above: PATIENT WAS FASTINGP ERFORMED BY: ISRA Lane Hjohyz9335 [facility] [id number] Information: [id number] Lymphocytes (Bld) [#/Vol] 2.8 10*3/uL Normal 0.7-3.1 [facility]; [facility] Work Phone: Comment on above: PATIENT WAS FASTINGP ERFORMED BY: [facility]6370 [facility] [id number] Information: [id number],[id number] Lymphocytes/100 WBC (Bld) 35 % Normal 14-46 [facility] Work Phone: Comment on above: PATIENT WAS FASTINGP ERFORMED BY: [facility]6370 [facility] [id number] Information: [id number],[id number] MCH (RBC) [Entitic mass] 30.0 pg Normal 26.6-33.0 [facility] Work Phone: Comment on above: PATIENT WAS FASTINGP ERFORMED BY: MingJeffrey Ville 1710270 [facility] [id number] Information: [id number] MCHC (RBC) [Mass/Vol] 32.2 g/dL Normal 31.5-35.7 [facility] Internal Medicine Work Phone: Comment on above: PATIENT WAS FASTINGP ERFORMED BY: [address] [id number] Information: [id number] MCV (RBC) [Entitic vol] 93 fL Normal 79-97 [facility] Internal Medicine Work Phone: Comment on above: PATIENT WAS FASTINGP ERFORMED BY: [address] [id number] Information: [id number] Monocytes (Bld) [#/Vol] 0.5 {x10E3/uL} Normal 0.1-0.9 [facility] Internal Medicine Work Phone: Comment on above: PATIENT WAS FASTINGP ERFORMED BY: ISRA [place] 1826570 [facility] [id number] Information: [id number] Monocytes (Bld) [#/Vol] 0.5 10*3/uL Normal 0.1-0.9 [facility]; [facility] Work Phone: Comment on above: PATIENT WAS FASTINGP ERFORMED BY: [facility]6370 [facility] [id number] Information: [id number] Monocytes/100 WBC (Bld) 7 % Normal 4-12 [facility] Work Phone: Comment on above: PATIENT WAS FASTINGP ERFORMED BY: [place] 7949170 [facility] [id number] Information: [id number] Neutrophils (Bld) [#/Vol] 4.3 {x10E3/uL} Normal 1.4-7.0 [facility] Internal Medicine Work Phone: Comment on above: PATIENT WAS FASTINGP ERFORMED BY: ISRA Kenyetta Guerra[address] [facility] [id number] Information: [id number] Neutrophils (Bld) [#/Vol] 4.3 10*3/uL Normal 1.4-7.0 [facility]; [facility] Internal Medicine Work Phone: Comment on above: PATIENT WAS FASTINGP ERFORMED BY: ISRA MingJd Oqsqoa9071 [facility] [id number] Information: [id number] Neutrophils/100 WBC (Bld) 55 % Normal 40-74 [facility] Work Phone: Comment on above: PATIENT WAS FASTINGP ERFORMED BY: ISRA Suárezlin6370 [facility] [id number] Information: [id number] Platelets (Bld) [#/Vol] 321 {x10E3/uL} Normal 155-379 [facility] Work Phone: Comment on above: PATIENT WAS FASTINGP ERFORMED BY: ISRA MingJd Oxkqdq1513 [facility] [id number] Information: [id number] Platelets (Bld) [#/Vol] 321 10*3/uL Normal 155-379 [facility]; [facility] Internal Medicine Work Phone: Comment on above: PATIENT WAS FASTINGP ERFORMED BY: ISRA LabCoisa Gdqwyt9473 [facility] [id number] Information: [id number] RBC (Bld) [#/Vol] 4.53 {x10E6/uL} Normal 4.14-5.80 [facility] Internal Medicine Work Phone: Comment on above: PATIENT WAS FASTINGP ERFORMED BY: ISRA LabCoisa Wdzpoh2335 [facility] [id number] Information: [id number] RBC (Bld) [#/Vol] 4.53 10*6/uL Normal 4.14-5.80 [facility] Internal [facility]; [facility] Work Phone: Comment on above: PATIENT WAS FASTINGP ERFORMED BY: ISRA Lane Ncwpzj9919 [facility] [id number] Information: [id number] WBC (Bld) [#/Vol] 7.9 {x10E3/uL} Normal 3.4-10.8 [facility] Internal Medicine Work Phone: Comment on above: PATIENT WAS FASTINGP ERFORMED BY: ISRA LabCo Vrqcuh0838 [facility] [id number] Information: [id number] WBC (Bld) [#/Vol] 7.9 10*3/uL Normal 3.4-10.8 [facility] Internal Medicine; [facility] Work Phone: Comment on above: PATIENT WAS FASTINGP ERFORMED BY: ISRA [facility] Iemyyh4903 [facility] [id number] Information: [id number] HgA1C , Office (22144)Ordere d By: Omayra Medina on 01-14-2014 HbA1c (Bld) [Mass fraction] 6.2 % Normal 4.6 - 7.1 [facility] Internal Medicine Work Phone: LIPID PANEL ([id number])Ordered B y: Centerless Grinder on 01-14-2014 Cholesterol [Mass/Vol] 204 mg/dL Abnormal 100-199 [facility] Internal Medicine Work Phone: Comment on above: PATIENT WAS FASTINGP ERFORMED BY: ISRA [facility] Esobhp3017 [facility] [id number] Cholesterol in HDL [Mass/Vol] 48 mg/dL Normal [facility] Internal Medicine Work Phone: Comment on above: According to ATP-III Guidelines, HDL-C >59 mg/dL is considered anegative risk factor for CHD. PATIENT WAS FASTINGP ERFORMED BY: ISRA [facility] Emgmrv6777 [address] RoadDublin [place] [id number] Cholesterol in LDL [Mass/Vol] 126 mg/dL Abnormal 0-99 [facility] Work Phone: Comment on above: PATIENT WAS FASTINGP ERFORMED BY: ISRA [facility] Mzmkwj1186 [address] RoadDublin [place] [id number] Cholesterol in LDL/Cholesterol in HDL [Mass ratio] 2.6 {ratio_units} Normal 0.0-3.6 [facility] Work Phone: Comment on above: PATIENT WAS FASTINGP ERFORMED BY: ISRA [facility] Ztqhsi7709 [address] RoadDublin [place] [id number] Cholesterol in VLDL [Mass/Vol] 30 mg/dL Normal 5-40 [facility] Work Phone: Comment on above: PATIENT WAS FASTINGP ERFORMED BY: ISRA LabCoisa Mvjsde3205 [address] RoadDuin [place] [id number] Triglyceride [Mass/Vol] 152 mg/dL Abnormal 0-149 [facility] Work Phone: Comment on above: PATIENT WAS FASTINGP ERFORMED BY: ISRA [facility] Hsozhh1338 [address] RoadDorothea Dix Hospitalin [place] [id number] METABOLIC PANEL, COMPREHENSI VE (57975)Ordered By: Centerless Grinder on 01-14-2014 Albumin [Mass/Vol] 4.6 g/dL Normal 3.5-5.5 [facility] Internal Medicine Work Phone: Comment on above: PATIENT WAS FASTINGP ERFORMED BY: ISRA [facility] Ueaiwk5246 [address] RoadDublin [place] [id number] Albumin/Globulin [Mass ratio] 1.9 {ratio} Normal 1.1-2.5 [facility] Work Phone: Comment on above: PATIENT WAS FASTINGP ERFORMED BY: CB [facility] Sjexuk5800 [address] RoadDublin [place] [id number] ALP [Catalytic activity/Vol] 36 [iU]/L Abnormal 39-117 [facility] Work Phone: Comment on above: PATIENT WAS FASTINGP ERFORMED BY: ISRA [facility] Jkpzgy8365 [address] RoadDublin [place] [id number] ALP [Catalytic activity/Vol] 36 U/L Abnormal 39-117 [facility]; [facility] Work Phone: Comment on above: PATIENT WAS FASTINGP ERFORMED BY: [facility] Eonoov6940 [address] RoadDublin [place] [id number] ALT [Catalytic activity/Vol] 23 [iU]/L Normal 0-44 [facility] Work Phone: Comment on above: PATIENT WAS FASTINGP ERFORMED BY: [facility] Aicreh9040 [address] RoadDublin [place] [id number] ALT [Catalytic activity/Vol] 23 U/L Normal 0-44 [facility]; [facility] Work Phone: Comment on above: PATIENT WAS FASTINGP ERFORMED BY: [facility] Rnglhy5464 [address] RoadDublin [place] [id number] AST [Catalytic activity/Vol] 16 [iU]/L Normal 0-40 [facility] Work Phone: Comment on above: PATIENT WAS FASTINGP ERFORMED BY: [facility] Qzfmmh1315 [address] RoadDublin [place] [id number] AST [Catalytic activity/Vol] 16 U/L Normal 0-40 [facility]; [facility] Work Phone: Comment on above: PATIENT WAS FASTINGP ERFORMED BY: [facility] Yaobdq2564 [address] RoadDublin [place] [id number] Bilirubin [Mass/Vol] 0.2 mg/dL Normal 0.0-1.2 [facility] Work Phone: Comment on above: PATIENT WAS FASTINGP ERFORMED BY: [facility] Tzqwyz8939 [address] RoadDublin [place] [id number] Calcium [Mass/Vol] 10.2 mg/dL Normal 8.7-10.2 [facility] Internal Medicine Work Phone: Comment on above: PATIENT WAS FASTINGP ERFORMED BY: [facility] Aacrps4861 [address]Dublin [place] [id number] Chloride [Moles/Vol] 105 mmol/L Normal 97-108 [facility] Work Phone: Comment on above: PATIENT WAS FASTINGP ERFORMED BY: CB [facility] Azqzsr1229 [address] RoadDublin [place] [id number] CO2 [Moles/Vol] 25 mmol/L Normal 19-28 [facility] Internal Medicine Work Phone: Comment on above: PATIENT WAS FASTINGP ERFORMED BY: CB [facility] Prkopk7972 [address] RoadDublin [place] [id number] Creatinine [Mass/Vol] 1.13 mg/dL Normal 0.76-1.27 [facility] Work Phone: Comment on above: PATIENT WAS FASTINGP ERFORMED BY: CB [facility] Rkaozb2592 [address] RoadDublin [place] [id number] GFR/1.73 sq M predicted among blacks CKD-EPI (S/P/Bld) [Vol rate/Area] 87 mL/min/1.73 Normal [facility] Work Phone: Comment on above: PATIENT WAS FASTINGP ERFORMED BY: CB [facility] Aeoddt2932 [address]Dublin [place] [id number] GFR/1.73 sq M predicted among non-blacks CKD-EPI (S/P/Bld) [Vol rate/Area] 75 mL/min/1.73 Normal [facility] Work Phone: Comment on above: PATIENT WAS FASTINGP ERFORMED BY: CB [facility] Qrkivd2109 [address] RoadDublin [place] [id number] Globulin (S) [Mass/Vol] 2.4 g/dL Normal 1.5-4.5 [facility] Work Phone: Comment on above: PATIENT WAS FASTINGP ERFORMED BY: CB [facility] Plifmp9437 [address] RoadDublin [place] [id number] Glucose [Mass/Vol] 105 mg/dL Abnormal 65-99 [facility] Internal Medicine Work Phone: Comment on above: PATIENT WAS FASTINGP ERFORMED BY: CB [facility] Npjiyb6302 [address] RoadDublin [place] [id number] Potassium [Moles/Vol] 5.1 mmol/L Normal 3.5-5.2 [facility] Internal Medicine Work Phone: Comment on above: PATIENT WAS FASTINGP ERFORMED BY: ISRA LabCoisa SuárezAuwiyh6302 [address] RoadDublin [place] [id number] Protein [Mass/Vol] 7.0 g/dL Normal 6.0-8.5 [facility] Internal Medicine Work Phone: Comment on above: PATIENT WAS FASTINGP ERFORMED BY: ISRA [facility] Nxumiw7236 [address] RoadDublin [place] [id number] Sodium [Moles/Vol] 143 mmol/L Normal 134-144 [facility] Internal Medicine Work Phone: Comment on above: PATIENT WAS FASTINGP ERFORMED BY: ISRA LabJd SuárezGctkmr7361 [address] RoadDublin [place] [id number] Urea nitrogen [Mass/Vol] 22 mg/dL Normal 6-24 [facility] Internal Medicine Work Phone: Comment on above: PATIENT WAS FASTINGP ERFORMED BY: ISRA Suárezlin6370 [address]Dublin [place] [id number] Urea nitrogen/Creatinine [Mass ratio] 19 mg/mg Normal 9-20 [facility] Internal Medicine Work Phone: Comment on above: PATIENT WAS FASTINGP ERFORMED BY: ISRA LabJd SuárezDuyrbo8709 [address] Roadblin [place] [id number] MICROALBUMINOrdered By: Syst em Dehydrogenation Converter Helper on 01-14-2014 Albumin DL <= 20 mg/L (U) [Mass/Vol] 2.2 ug/mL Normal 0.0-17.0 [facility] Work Phone: Comment on above: PATIENT WAS FASTINGP ERFORMED BY: ISRA Lab[facility] Bydytb9337 [address] RoadDublin [place] [id number] Albumin/Creatinine (U) [Mass ratio] 2.8 {mg/g_creat} Normal 0.0-30.0 [facility] Work Phone: Comment on above: PATIENT WAS FASTINGP ERFORMED BY: ISRA Kenyetta Venytj0792 [address] RoadDublin [place] [id number] Creatinine (U) [Mass/Vol] 78.8 mg/dL Normal 22.0-328.0 [facility] Work Phone: Comment on above: PATIENT WAS FASTINGP ERFORMED BY: ISRA Kenyetta Qoblmw8149 [address] RoadDublin [place] [id number] TSH (69092)Ordered By: ZootRocke m Dehydrogenation Converter Helper on 01-14-2014 TSH Qn 1.400 {uIU/mL} Normal 0.450-4.500 Comprehen sive [facility] Medicine Work Phone: Comment on above: PATIENT WAS FASTINGP ERFORMED BY: ISRA Laneisa SuárezCcgmyy4008 [address] RoadDublin [place] [id number] URINALYSIS, W/ MICRO (22708) Ordered By: Centerless Grinder on 01-14-2014 Appearance (U) Clear Normal Comprehens brent Internal Medicine Work Phone: Comment on above: PATIENT WAS FASTINGP ERFORMED BY: ISRA Kenyetta Fuvpud8900 [address] RoadDublin [place] [id number] Bilirubin Ql (U) Negative Normal Comprehe nsive Internal Medicine Work Phone: Comment on above: PATIENT WAS FASTINGP ERFORMED BY: ISRA Laneisa SuárezEqecxs4516 [address] RoadDublin [place] [id number] Bilirubin Ql (U) Negative Normal Comprehe nsive Internal Medicine; [facility] Work Phone: Comment on above: PATIENT WAS FASTINGP ERFORMED BY: ISRA Laneisa SuárezTqbetc1654 [address] RoadDublin [place] [id number] Color (U) Yellow Normal [facility] Work Phone: Comment on above: PATIENT WAS FASTINGP ERFORMED BY: ISRA LabReidisa SuárezMentin6457 [address] RoadDublin [place] [id number] Glucose Ql (U) Negative Normal Comprehens [facility] Work Phone: Comment on above: PATIENT WAS FASTINGP ERFORMED BY: ISRA LabJd SuárezGstwjs5294 [address] RoadDublin [place] [id number] Glucose Ql (U) Negative Normal Comprehens brent [facility]; [facility] Work Phone: Comment on above: PATIENT WAS FASTINGP ERFORMED BY: ISRA Guerra6370 [address] RoadDublin [place] [id number] Hemoglobin Ql (U) Negative Normal Compreh ensive [facility] Medicine Work Phone: Comment on above: PATIENT WAS FASTINGP ERFORMED BY: ISRA Guerra6370 [address]Dublin [place] [id number] Hemoglobin Ql (U) Negative Normal Compreh ensive [facility]; [facility] Work Phone: Comment on above: PATIENT WAS FASTINGP ERFORMED BY: ISRA Weinstein70 [address] RoadDublin [place] [id number] Ketones Ql (U) Negative Normal Comprehens [facility] Work Phone: Comment on above: PATIENT WAS FASTINGP ERFORMED BY: ISRA Weinstein70 [address]Dublin [place] [id number] Ketones Ql (U) Negative Normal Comprehens [facility]; [facility] Work Phone: Comment on above: PATIENT WAS FASTINGP ERFORMED BY: ISRA Weinstein70 [address] RoadDublin [place] [id number] Leukocyte esterase Test strip Ql (U) Negative Normal [facility] Work Phone: Comment on above: PATIENT WAS FASTINGP ERFORMED BY: ISRA Guerra6370 [address]Dublin [place] [id number] Leukocyte esterase Test strip Ql (U) Negative Normal [facility]; [facility] Work Phone: Comment on above: PATIENT WAS FASTINGP ERFORMED BY: ISRA Guerra6370 [address] [place] [id number] Microscopic observation LM Nom (Urine sed) See below: Normal [facility] Work Phone: Comment on above: PATIENT WAS FASTINGP ERFORMED BY: ISRA Suárezlin6370 [address] RoadDublin [place] [id number] Microscopic observation LM Nom (Urine sed) MICRON Normal [facility] Work Phone: Comment on above: Microscopic follows if indicated. PATIENT WAS FASTINGP ERFORMED BY: ISRA LabJd Guerra6370 [address]Dublin [place] [id number] Nitrite Ql (U) Negative Normal Comprehens [facility] Work Phone: Comment on above: PATIENT WAS FASTINGP ERFORMED BY: ISRA LabJd SuárezTsgzdi2225 [address] RoadDublin [place] [id number] Nitrite Ql (U) Negative Normal Comprehens b[facility]; [facility] Work Phone: Comment on above: PATIENT WAS FASTINGP ERFORMED BY: ISRA Guerra6370 [address] [place] [id number] pH (U) 5.5 [pH] Normal 5.0-7.5 [facility] Work Phone: Comment on above: PATIENT WAS FASTINGP ERFORMED BY: ISRA Suárezlin6370 [address]Dublin [place] [id number] Protein Ql (U) Negative Normal Comprehens [facility] Work Phone: Comment on above: PATIENT WAS FASTINGP ERFORMED BY: ISRA Guerra6370 [address] [place] [id number] Protein Ql (U) Negative Normal Comprehens brent [facility]; [facility] Work Phone: Comment on above: PATIENT WAS FASTINGP ERFORMED BY: ISRA Guerra6370 [address] [facility]in [place] [id number] Specific gravity (U) [Rel density] 1.019 1 Normal 1.005-1.030 [facility] Work Phone: Comment on above: PATIENT WAS FASTINGP ERFORMED BY: ISRA LabJd SuárezFxuufw0971 [address] RoadDublin [place] [id number] Urobilinogen (U) [Mass/Vol] 0.2 mg/dL Normal 0.0-1.9 [facility]; [facility] Work Phone: Comment on above: PATIENT WAS FASTINGP ERFORMED BY: ISRA [facility] Hdtefj4671 [address] RoadDublin [place] [id number] Urobilinogen Test strip (U) [Mass/Vol] 0.2 mg/dL Normal 0.0-1.9 Comprehensi Internal Medicine Work Phone: Comment on above: PATIENT WAS FASTINGP ERFORMED BY: Peak8 Partnerslin6370 [address] Endeavorblin [place] [id number] VITAMIN B-12 (CYANOCOBALAMIN ) (11891)Ordered By: Centerless Grinder on 01-14-2014 Cobalamin (Vitamin B12) [Mass/Vol] 461 pg/mL Normal 211-946 [facility] Work Phone: Comment on above: PATIENT WAS FASTINGP ERFORMED BY: Aviasales6370 Lulu*s Fashion LoungeUofL Health [facility] [id number] Blood Glucose , Office ([phone])on 09-15-2013 Glucose Glucometer (BldC) [Moles/Vol] 111 1 Normal [facility] Internal Medicine Work Phone: HgA1C , Office (46171)on HbA1c (Bld) [Mass fraction] 6.1 % Normal 4.6 - 7.1 [facility] Work Phone: PSA (PROSTATE SPECIFIC ANTIG EN) (V76.44)Ordered By: Centerless Grinder on 08-16-2013 Prostate specific Ag [Mass/Vol] 1.2 ng/mL Normal 0.0-4.0 [facility] Internal Medicine Work Phone: Comment on above: Ayde ECLIA methodol ogy. .According to the [place] [employer], Serum PSA shoulddecrease and remain at undetectable levels after radicalprostatectomy. The AUA defines biochemical recurrence as an initialPSA value 0.2 ng/mL or greater followed by a subsequent confirmatoryPSA value 0.2 ng/mL or greater.Values obtained with different assay methods or kits cannot be usedinterchangeably. Results cannot be interpreted as absolute evidenceof the presence or absence of malignant disease. PATIENT NOT FASTINGP ERFORMED BY: onefinestay Ayblos2185 [address] Endeavorin [place] [id number] Information: [id number] HEPATIC FUNCTION PANEL (5257 6)Ordered By: Jeanine Rock on 07-06-2009 Albumin [Mass/Vol] 4.4 g/dL Normal 3.5-5.5 [facility] Internal Medicine Work Phone: Comment on above: PATIENT NOT FASTINGC linical Information: ADD [id number] PERFORMED BY: Alect[employer] [id number] ALP [Catalytic activity/Vol] 35 [iU]/L Normal 25-150 [facility] Work Phone: Comment on above: PATIENT NOT FASTINGC linical Information: ADD [id number] PERFORMED BY: [employer] [address] [id number] ALP [Catalytic activity/Vol] 35 U/L Normal 25-150 [facility]; [facility] Work Phone: Comment on above: PATIENT NOT FASTINGC linical Information: ADD [id number] PERFORMED BY: [address] [id number] ALT [Catalytic activity/Vol] 21 [iU]/L Normal 0-55 [facility] Work Phone: Comment on above: PATIENT NOT FASTINGC linical Information: ADD [id number] PERFORMED BY: [employer] [address] [id number] ALT [Catalytic activity/Vol] 21 U/L Normal 0-55 [facility]; [facility] Work Phone: Comment on above: PATIENT NOT FASTINGC linical Information: ADD [id number] PERFORMED BY: [employer] [address] [id number] AST [Catalytic activity/Vol] 21 [iU]/L Normal 0-40 [facility] Work Phone: Comment on above: PATIENT NOT FASTINGC linical Information: ADD [id number] PERFORMED BY: [address] [id number] AST [Catalytic activity/Vol] 21 U/L Normal 0-40 [facility]; [facility] Internal Medicine Work Phone: Comment on above: PATIENT NOT FASTINGC linical Information: ADD [id number] PERFORMED BY: [employer] [address] [id number] Bilirubin [Mass/Vol] 0.3 mg/dL Normal 0.1-1.2 [facility] Work Phone: Comment on above: PATIENT NOT FASTINGC linical Information: ADD [id number] PERFORMED BY: [employer] [address] [id number] Bilirubin.direct [Mass/Vol] 0.11 mg/dL Normal 0.00-0.40 [facility] Internal Medicine Work Phone: Comment on above: PATIENT NOT FASTINGC linical Information: ADD [id number] PERFORMED BY: [address] [id number] Protein [Mass/Vol] 6.7 g/dL Normal 6.0-8.5 [facility] Internal Medicine Work Phone: Comment on above: PATIENT NOT FASTINGC linical Information: ADD [id number] PERFORMED BY: [employer] [address] [id number] Methylmalonic acid, serum 83 921Ordered By: Jeanine Rock on 07-06-2009 Methylmalonate Ql (U) 157 nmol/L Normal 73-376 [facility] Internal Medicine Work Phone: Comment on above: The reference range for methylmalonic acid has been set at +3sd abovethe mean for healthy blood bank donors. In the clinical assessment ofpatients with megaloblastic anemias a cutoff of +3sd provides greaterspecificity in the diagnosis of the vitamin deficiency states,despite the sacrifice of some sensitivity. PATIENT NOT FASTINGP ERFORMED BY: [employer] [address] [id number] VITAMIN B-12 (CYANOCOBALAMIN ) (60297)Ordered By: Jeanine Rock on 07-06-2009 Cobalamin (Vitamin B12) [Mass/Vol] pg/mL Abnormal 211-911 [facility] Work Phone: Comment on above: PATIENT NOT FASTINGP ERFORMED BY: LabCo[address] [id number] Vital Signs Date Time Vital Sign Value Performing Clinician Facility 06-27-2025 15:00-0400 Body height 177.[address] Rich Sams MD Work Phone: [facility] 06-27-2025 15:00-0400 Body mass index (BMI) [Ratio] 35 kg/m2 Dr. Rich Sams MD Work Phone: [facility] 06-27-2025 15:00-0400 Body weight 110.[address] Rich Sams MD Work Phone: [facility] 06-21-2025 08:06-0400 Body height 177.[address] Rich Sams MD Work Phone: [facility] 06-21-2025 08:06-0400 Body mass index (BMI) [Ratio] 35.2 kg/m2 Dr. Rich Sams MD Work Phone: [facility] 06-21-2025 08:06-0400 Body temperature 97.8 [degF] Dr. Rich Sams MD Work Phone: [facility] 06-21-2025 08:06-0400 Body weight 111.[address] Rich Sams MD Work Phone: [facility] 06-21-2025 08:06-0400 Diastolic blood pressure 104 mm[Hg] Dr. Rich Sams MD Work Phone: [facility] 06-21-2025 08:06-0400 Heart rate 72 /min Dr. Rich Sams MD Work Phone: [facility] 06-21-2025 08:06-0400 Respiratory rate 16 /min Dr. Rich Sams MD Work Phone: [facility] 06-21-2025 08:06-0400 SaO2% (BldA) [Mass fraction] 97 % Dr. Rich Sams MD Work Phone: [facility] 06-21-2025 08:06-0400 Systolic blood pressure 201 mm[Hg] Dr. Rich Sams MD Work Phone: [facility] 03-07-2025 06:26-0400 Body temperature 98.1 [degF] Dr. Rich Sams MD Work Phone: [facility] 03-07-2025 06:26-0400 Diastolic blood pressure 86 mm[Hg] Dr. Rich Sams MD Work Phone: [facility] 03-07-2025 06:26-0400 Heart rate 68 /min Dr. Rich Sams MD Work Phone: [facility] 03-07-2025 06:26-0400 SaO2% (BldA) [Mass fraction] 98 % Dr. Rich Sams MD Work Phone: [facility] 03-07-2025 06:26-0400 Systolic blood pressure 142 mm[Hg] Dr. Rich Sams MD Work Phone: [facility] 02-12-2025 08:30-0400 Body height 177.[address] Rich Sams MD Work Phone: [facility] 02-12-2025 08:30-0400 Body mass index (BMI) [Ratio] 35.5 kg/m2 Dr. Rich Sams MD Work Phone: [facility] 02-12-2025 08:30-0400 Body temperature 97.9 [degF] Dr. Rich Sams MD Work Phone: [facility] 02-12-2025 08:30-0400 Body weight 112.[address] Rich Sams MD Work Phone: [facility] 02-12-2025 08:30-0400 Diastolic blood pressure 102 mm[Hg] Dr. Rich Sams MD Work Phone: [facility] 02-12-2025 08:30-0400 Heart rate 71 /min Dr. Rich Sams MD Work Phone: [facility] 02-12-2025 08:30-0400 SaO2% (BldA) [Mass fraction] 97 % Dr. Rich Sams MD Work Phone: [facility] 02-12-2025 08:30-0400 Systolic blood pressure 158 mm[Hg] Dr. Rihc Sams MD Work Phone: [facility] 04-17-2023 15:01-0400 Body height 177.[address] Rich Sams Work Phone: [facility] 04-17-2023 15:01-0400 Body mass index (BMI) [Ratio] 35.4 kg/m2 Dr. Rich Sams Work Phone: [facility] 04-17-2023 15:01-0400 Body temperature 97.2 [degF] Dr. Rich Sams Work Phone: [facility] 04-17-2023 15:01-0400 Body weight 112.[address] Rich Sams Work Phone: [facility] 04-17-2023 15:01-0400 Diastolic blood pressure 84 mm[Hg] Dr. Rich Sams Work Phone: [facility] 04-17-2023 15:01-0400 Heart rate 72 /min Dr. Rich Sams Work Phone: [facility] 04-17-2023 15:01-0400 Respiratory rate 16 /min Dr. Rich Sams Work Phone: [facility] 04-17-2023 15:01-0400 SaO2% (BldA) [Mass fraction] 94 % Dr. Rich Sams Work Phone: [facility] 04-17-2023 15:01-0400 Systolic blood pressure 168 mm[Hg] Dr. Rich Sams Work Phone: [facility] 09-27-2020 15:49-0500 BMI (Body Mass Index) 32.78 kg/m2 Cary Mathew [employer] [facility] Work Phone: Comment on above: pt reported wt. 09-27-2020 15:49-0500 Body weight 106.6 kg Cary Pranavius [employer] [facility]; [facility] Work Phone: Comment on above: pt reported wt. 09-27-2020 15:49-0500 BSA (Body Surface Area) 2.26 m2 Cary Pranavius [facility]; [facility] Work Phone: Comment on above: pt reported wt. 09-27-2020 15:49-0500 Height 180.34 cm Cary Pranavius [employer] [facility]; [facility] Work Phone: Comment on above: pt reported wt. 09-29-2019 15:40-0500 BMI (Body Mass Index) 35.15 kg/m2 Cary Mathew [facility] Work Phone: 09-29-2019 15:40-0500 Body Temperature 97.2 [degF] Cary Pranavius [facility] Work Phone: Comment on above: Method: Temporal 09-29-2019 15:40-0500 Body weight 114.31 kg Cary Rockius [facility] Work Phone: 09-29-2019 15:40-0500 BP Diastolic 90 mm[Hg] Cary Pranavius [facility] Work Phone: Comment on above: Patient Position: Sitting; Cuff Location : Left Arm; Cuff Size: Standard 09-29-2019 15:40-0500 BP Systolic 142 mm[Hg] Cary Pranavius [facility] Work Phone: Comment on above: Patient Position: Sitting; Cuff Location : Left Arm; Cuff Size: Standard 09-29-2019 15:40-0500 BSA (Body Surface Area) 2.33 m2 Cary Mathew [facility] Work Phone: 09-29-2019 15:40-0500 Height 180.34 cm Cary Mathew [facility] Work Phone: 09-29-2019 15:40-0500 Pulse (Heart Rate) 69 /min Cary Mathew [employer] [facility] Work Phone: Comment on above: Pattern: Regular 09-29-2019 15:40-0500 Pulse Oximetry 98 % Jeanine Rock [facility] Work Phone: Comment on above: Room air 09-29-2019 15:40-0500 Respiratory Rate 18 /min Cary Mathew [facility] Work Phone: Comment on above: Pattern: Unlabored 09-29-2019 15:40-0500 SaO2% (BldA) [Mass fraction] 98 % Cayr Mathew [facility] Work Phone: Comment on above: Room air 05-22-2017 09:04-0400 BMI (Body Mass Index) 32.5 kg/m2 Omayra Medina RN [facility] Work Phone: 05-22-2017 09:04-0400 Body Temperature 98.1 [degF] Omayra Medina RN [facility] Work Phone: Comment on above: Method: Temporal 05-22-2017 09:04-0400 Body weight 105.69 kg Omayra Medina RN [facility] Work Phone: 05-22-2017 09:04-0400 BP Diastolic 84 mm[Hg] Omayra Medina RN [facility] Work Phone: Comment on above: Patient Position: Sitting; Cuff Location : Left Arm; Cuff Size: Large 05-22-2017 09:04-0400 BP Systolic 138 mm[Hg] Omayra Medina RN [facility] Work Phone: Comment on above: Patient Position: Sitting; Cuff Location : Left Arm; Cuff Size: Large 05-22-2017 09:04-0400 BSA (Body Surface Area) 2.25 m2 Omayra Medina RN [facility] Work Phone: 05-22-2017 09:04-0400 Height 180.34 cm Omayra Medina RN [facility] Work Phone: 05-22-2017 09:04-0400 Pulse (Heart Rate) 84 /min Omayra Medina RN [facility] Work Phone: Comment on above: Pattern: Regular 05-22-2017 09:04-0400 Pulse Oximetry 93 % Jeanine Rock [facility] Work Phone: Comment on above: Room air 05-22-2017 09:04-0400 Respiratory Rate 18 /min Omayra Medina RN [facility] Work Phone: Comment on above: Pattern: Unlabored 05-22-2017 09:04-0400 SaO2% (BldA) [Mass fraction] 93 % Omayra Medina RN [facility]; [facility] Work Phone: Comment on above: Room air 05-12-2017 11:02-0400 BMI (Body Mass Index) 35.15 kg/m2 Angeles Tariq RN [facility] Work Phone: 05-12-2017 11:02-0400 Body Temperature 101.9 [degF] Angeles Tariq RN [facility] Work Phone: Comment on above: Method: Temporal 05-12-2017 11:02-0400 Body weight 114.31 kg Angeles Tariq RN [facility] Work Phone: 05-12-2017 11:02-0400 BP Diastolic 78 mm[Hg] Angeles Tariq RN [facility] Work Phone: Comment on above: Patient Position: Sitting; Cuff Location : Left Arm; Cuff Size: Standard 05-12-2017 11:02-0400 BP Systolic 138 mm[Hg] Angeles Tariq RN [facility] Work Phone: Comment on above: Patient Position: Sitting; Cuff Location : Left Arm; Cuff Size: Standard 05-12-2017 11:02-0400 BSA (Body Surface Area) 2.33 m2 Angeles Tariq RN [facility] Work Phone: 05-12-2017 11:02-0400 Height 180.34 cm Angeles Tariq RN [facility] Work Phone: 05-12-2017 11:02-0400 Pulse (Heart Rate) 104 /min Angeles Tariq RN [facility] Work Phone: Comment on above: Pattern: Regular 05-12-2017 11:02-0400 Pulse Oximetry 98 % Jeanine Rock [facility] Work Phone: Comment on above: Room air 05-12-2017 11:02-0400 Respiratory Rate 16 /min Angeles Tariq RN [facility] Work Phone: Comment on above: Pattern: Unlabored 05-12-2017 11:02-0400 SaO2% (BldA) [Mass fraction] 98 % Angeles Tariq RN [facility]; [facility] Work Phone: Comment on above: Room air 01-30-2016 10:01-0400 BMI (Body Mass Index) 36.26 kg/m2 Luana Long [facility] Work Phone: 01-30-2016 10:01-0400 Body Temperature 98 [degF] Luana Long [facility] Work Phone: Comment on above: Method: Temporal 01-30-2016 10:01-0400 Body weight 117.94 kg Luana Long [facility] Work Phone: 01-30-2016 10:01-0400 BP Diastolic 100 mm[Hg] Luana Long [facility] Work Phone: Comment on above: Patient Position: Sitting; Cuff Location : Left Arm; Cuff Size: Large 01-30-2016 10:01-0400 BP Systolic 142 mm[Hg] Luana Long [facility] Work Phone: Comment on above: Patient Position: Sitting; Cuff Location : Left Arm; Cuff Size: Large 01-30-2016 10:01-0400 BSA (Body Surface Area) 2.36 m2 Luana Long [facility] Work Phone: 01-30-2016 10:01-0400 Height 180.34 cm Luana Long [facility] Work Phone: 01-30-2016 10:01-0400 Pulse (Heart Rate) 82 /min Luana Long [facility] Work Phone: Comment on above: Pattern: Regular 01-30-2016 10:01-0400 Pulse Oximetry 97 % Jeanine Rock [facility] Work Phone: Comment on above: Room air 01-30-2016 10:01-0400 Respiratory Rate 15 /min Luana Long [facility] Work Phone: Comment on above: Pattern: Unlabored 01-30-2016 10:01-0400 SaO2% (BldA) [Mass fraction] 97 % Luana Long [facility]; [facility] Work Phone: Comment on above: Room air 01-26-2016 06:53-0400 BMI (Body Mass Index) 36.26 kg/m2 CONRADO Real LPN [facility] Work Phone: 01-26-2016 06:53-0400 Body Temperature 97.6 [degF] CONRADO Real LPN [facility] Work Phone: Comment on above: Method: Temporal 01-26-2016 06:53-0400 Body weight 117.94 kg CONRADOGAURAV Real LPN [facility] Work Phone: 01-26-2016 06:53-0400 BP Diastolic 84 mm[Hg] CONRADO Real LPN [facility] Work Phone: Comment on above: Patient Position: Sitting; Cuff Location : Left Arm; Cuff Size: Large 01-26-2016 06:53-0400 BP Systolic 126 mm[Hg] CONRADO Real LPN [facility] Work Phone: Comment on above: Patient Position: Sitting; Cuff Location : Left Arm; Cuff Size: Large 01-26-2016 06:53-0400 BSA (Body Surface Area) 2.36 m2 CONRADO Real LPN [facility] Work Phone: 01-26-2016 06:53-0400 Height 180.34 cm CONRADO Farhan VALDEZ [facility] Work Phone: 01-26-2016 06:53-0400 Pulse (Heart Rate) 74 /min CONRADO Real JOSÉ MIGUEL [facility] Work Phone: Comment on above: Pattern: Regular 01-26-2016 06:53-0400 Pulse Oximetry 97 % Jeanine Rock [facility] Work Phone: Comment on above: Room air 01-26-2016 06:53-0400 Respiratory Rate 20 /min CONRADO Real JOSÉ MIGUEL [facility] Work Phone: Comment on above: Pattern: Unlabored 01-26-2016 06:53-0400 SaO2% (BldA) [Mass fraction] 97 % CONRADO Farhan VALDEZ [facility]; [facility] Work Phone: Comment on above: Room air 11-08-2015 13:34-0500 BMI (Body Mass Index) 36.26 kg/m2 Omayra Medina RN [facility] Work Phone: 11-08-2015 13:34-0500 Body weight 117.94 kg Omayra Medina RN [facility] Work Phone: 11-08-2015 13:34-0500 BP Diastolic 68 mm[Hg] Omayra Medina RN [facility] Work Phone: Comment on above: Patient Position: Sitting; Cuff Location : Left Arm; Cuff Size: Large 11-08-2015 13:34-0500 BP Systolic 138 mm[Hg] Omayra Medina RN [facility] Work Phone: Comment on above: Patient Position: Sitting; Cuff Location : Left Arm; Cuff Size: Large 11-08-2015 13:34-0500 BSA (Body Surface Area) 2.36 m2 Omayra Medina RN [facility] Work Phone: 11-08-2015 13:34-0500 Height 180.34 cm Omayra Medina RN [facility] Work Phone: 11-08-2015 13:34-0500 Pulse (Heart Rate) 94 /min Omayra Medina RN [facility] Work Phone: Comment on above: Pattern: Regular 11-08-2015 13:34-0500 Pulse Oximetry 94 % Jeanine Valenciaon [facility] Work Phone: Comment on above: Room air 11-08-2015 13:34-0500 Respiratory Rate 18 /min Omayra Medina RN [facility] Work Phone: Comment on above: Pattern: Unlabored 11-08-2015 13:34-0500 SaO2% (BldA) [Mass fraction] 94 % Omayra Medina RN [facility]; [facility] Work Phone: Comment on above: Room air 10-04-2014 15:05-0500 BMI (Body Mass Index) 35.15 kg/m2 Omayra Medina RN [facility] Work Phone: 10-04-2014 15:05-0500 Body weight 114.31 kg Omayra Medina RN [facility] Work Phone: 10-04-2014 15:05-0500 BP Diastolic 80 mm[Hg] Omayra Medina RN [facility] Work Phone: Comment on above: Patient Position: Sitting; Cuff Location : Left Arm; Cuff Size: Large 10-04-2014 15:05-0500 BP Systolic 140 mm[Hg] Omayra Medina RN [facility] Work Phone: Comment on above: Patient Position: Sitting; Cuff Location : Left Arm; Cuff Size: Large 10-04-2014 15:05-0500 BSA (Body Surface Area) 2.33 m2 Omayra Medina RN [facility] Work Phone: 10-04-2014 15:05-0500 Height 180.34 cm Omayra Medina RN [facility] Work Phone: 10-04-2014 15:05-0500 Pulse (Heart Rate) 79 /min Omayra Mednia RN [facility] Work Phone: Comment on above: Pattern: Regular 10-04-2014 15:05-0500 Pulse Oximetry 97 % Jeanine Shweta [facility] Work Phone: Comment on above: Room air 10-04-2014 15:05-0500 Respiratory Rate 20 /min Omayra Medina RN [facility] Work Phone: Comment on above: Pattern: Unlabored 10-04-2014 15:05-0500 SaO2% (BldA) [Mass fraction] 97 % Omayra Medina RN [facility]; [facility] Work Phone: Comment on above: Room air 05-20-2014 08:38-0400 BMI (Body Mass Index) 34.5 kg/m2 Omayra Medina RN [facility] Work Phone: 05-20-2014 08:38-0400 Body weight 112.21 kg Omayra Medina RN [facility] Work Phone: 05-20-2014 08:38-0400 BP Diastolic 80 mm[Hg] Omayra Medina RN [facility] Work Phone: Comment on above: Patient Position: Sitting; Cuff Location : Left Arm; Cuff Size: Large 05-20-2014 08:38-0400 BP Systolic 124 mm[Hg] Omayra Medina RN [facility] Work Phone: Comment on above: Patient Position: Sitting; Cuff Location : Left Arm; Cuff Size: Large 05-20-2014 08:38-0400 BSA (Body Surface Area) 2.31 m2 Omayra Medina RN [facility] Work Phone: 05-20-2014 08:38-0400 Height 180.34 cm Omayra Medina RN [facility] Work Phone: 05-20-2014 08:38-0400 Pulse (Heart Rate) 70 /min Omayra Medina RN [facility] Work Phone: Comment on above: Pattern: Regular 05-20-2014 08:38-0400 Respiratory Rate 18 /min Omayra Medina RN [facility] Work Phone: Comment on above: Pattern: Unlabored 01-28-2014 12:05-0400 BMI (Body Mass Index) 35.01 kg/m2 Luana Long [facility] Work Phone: 01-28-2014 12:05-0400 Body Temperature 98.2 [degF] Luana Long [facility] Work Phone: 01-28-2014 12:05-0400 Body weight 113.85 kg Luana Long [facility] Work Phone: 01-28-2014 12:05-0400 BP Diastolic 72 mm[Hg] Luana Asifsilvatami [facility] Work Phone: Comment on above: Patient Position: Sitting; Cuff Location : Left Arm; Cuff Size: Large 01-28-2014 12:05-0400 BP Systolic 120 mm[Hg] Luana Asifoliver [facility] Work Phone: Comment on above: Patient Position: Sitting; Cuff Location : Left Arm; Cuff Size: Large 01-28-2014 12:05-0400 BSA (Body Surface Area) 2.32 m2 Luana Asifoliver [facility] Work Phone: 01-28-2014 12:05-0400 Height 180.34 cm Luana Ethan [facility] Work Phone: 01-28-2014 12:05-0400 Pulse (Heart Rate) 70 /min Luana Asifoliver [facility] Work Phone: Comment on above: Pattern: Regular 01-28-2014 12:05-0400 Pulse Oximetry 97 % Jeanine Rock [facility] Work Phone: Comment on above: Room air 01-28-2014 12:05-0400 Respiratory Rate 18 /min Luana Ethan [facility] Work Phone: Comment on above: Pattern: Unlabored 01-28-2014 12:05-0400 SaO2% (BldA) [Mass fraction] 97 % Luana Long [facility]; [facility] Work Phone: Comment on above: Room air 01-14-2014 09:14-0400 BMI (Body Mass Index) 35.03 kg/m2 Omayra Medina RN [facility] Work Phone: 01-14-2014 09:14-0400 Body Temperature 97 [degF] Omayra Medina RN [facility] Work Phone: Comment on above: Method: Oral 01-14-2014 09:14-0400 Body weight 113.94 kg Omayra Medina RN [facility] Work Phone: 01-14-2014 09:14-0400 BP Diastolic 84 mm[Hg] Omayra Medina RN [facility] Work Phone: Comment on above: Patient Position: Sitting; Cuff Location : Left Arm; Cuff Size: Large 01-14-2014 09:14-0400 BP Systolic 122 mm[Hg] Omayra Medina RN [facility] Work Phone: Comment on above: Patient Position: Sitting; Cuff Location : Left Arm; Cuff Size: Large 01-14-2014 09:14-0400 BSA (Body Surface Area) 2.32 m2 Omayra Medina RN [facility] Work Phone: 01-14-2014 09:14-0400 Height 180.34 cm Omayra Medina RN [facility] Work Phone: 01-14-2014 09:14-0400 Pulse (Heart Rate) 68 /min Omayra Medina RN [facility] Work Phone: Comment on above: Pattern: Regular 01-14-2014 09:14-0400 Pulse Oximetry 97 % Jeanine Rock [facility] Work Phone: Comment on above: Room air 01-14-2014 09:14-0400 Respiratory Rate 20 /min Omayra Medina RN [facility] Work Phone: Comment on above: Pattern: Unlabored 01-14-2014 09:14-0400 SaO2% (BldA) [Mass fraction] 97 % Omayra Medina RN [facility]; [facility] Work Phone: Comment on above: Room air 09-15-2013 08:29-0500 BMI (Body Mass Index) 35.9 kg/m2 Omayra Medina RN [facility] Work Phone: 09-15-2013 08:29-0500 Body weight 116.75 kg Omayra Medina RN [facility] Work Phone: 09-15-2013 08:29-0500 BP Diastolic 82 mm[Hg] Omayra Medina RN [facility] Work Phone: Comment on above: Patient Position: Sitting; Cuff Location : Left Arm; Cuff Size: Large 09-15-2013 08:29-0500 BP Systolic 120 mm[Hg] Omayra Medina RN [facility] Work Phone: Comment on above: Patient Position: Sitting; Cuff Location : Left Arm; Cuff Size: Large 09-15-2013 08:29-0500 BSA (Body Surface Area) 2.35 m2 Omayra Medina RN [facility] Work Phone: 09-15-2013 08:29-0500 Height 180.34 cm Omayra Medina RN [facility] Work Phone: 09-15-2013 08:29-0500 Pulse (Heart Rate) 68 /min Omayra Medina RN [facility] Work Phone: Comment on above: Pattern: Regular 09-15-2013 08:29-0500 Pulse Oximetry 98 % Jeanine Rock [facility] Work Phone: Comment on above: Room air 09-15-2013 08:29-0500 Respiratory Rate 18 /min Omayra Medina RN [facility] Work Phone: Comment on above: Pattern: Unlabored 09-15-2013 08:29-0500 SaO2% (BldA) [Mass fraction] 98 % Omayra Medina RN [facility]; [facility] Work Phone: Comment on above: Room air 08-16-2013 10:38-0400 BMI (Body Mass Index) 36.27 kg/m2 Omayra Medina RN [facility] Work Phone: 08-16-2013 10:38-0400 Body Temperature 97.5 [degF] Omayra Medina RN [facility] Work Phone: Comment on above: Method: Oral 08-16-2013 10:38-0400 Body weight 117.96 kg Omayra Medina RN [facility] Work Phone: 08-16-2013 10:38-0400 BP Diastolic 82 mm[Hg] Omayra Medina RN [facility] Work Phone: Comment on above: Patient Position: Sitting; Cuff Location : Left Arm; Cuff Size: Large 08-16-2013 10:38-0400 BP Systolic 128 mm[Hg] Omayra Mednia RN [facility] Work Phone: Comment on above: Patient Position: Sitting; Cuff Location : Left Arm; Cuff Size: Large 08-16-2013 10:38-0400 BSA (Body Surface Area) 2.36 m2 Omayra Medina RN [facility] Work Phone: 08-16-2013 10:38-0400 Height 180.34 cm Omayra Medina RN [facility] Work Phone: 08-16-2013 10:38-0400 Pulse (Heart Rate) 76 /min Omayra Medina RN [facility] Work Phone: Comment on above: Pattern: Regular 08-16-2013 10:38-0400 Respiratory Rate 20 /min Omayra Medina RN [facility] Work Phone: Comment on above: Pattern: Unlabored 06-24-2012 08:44-0400 BMI (Body Mass Index) 35.3 kg/m2 Omayra Medina RN [facility] Work Phone: 06-24-2012 08:44-0400 Body weight 114.82 kg Omayra Medina RN [facility] Work Phone: 06-24-2012 08:44-0400 BP Diastolic 82 mm[Hg] Omayra Medina RN [facility] Work Phone: Comment on above: Patient Position: Sitting; Cuff Location : Left Arm; Cuff Size: Large 06-24-2012 08:44-0400 BP Systolic 122 mm[Hg] Omayra Medina RN [facility] Work Phone: Comment on above: Patient Position: Sitting; Cuff Location : Left Arm; Cuff Size: Large 06-24-2012 08:44-0400 BSA (Body Surface Area) 2.33 m2 Omayra Medina RN [facility] Work Phone: 06-24-2012 08:44-0400 Height 180.34 cm Omayra Medina RN [facility] Work Phone: 06-24-2012 08:44-0400 Pulse (Heart Rate) 60 /min Omayra Medina RN [facility] Work Phone: Comment on above: Pattern: Regular 06-24-2012 08:44-0400 Respiratory Rate 16 /min Omayra Medina RN [facility] Work Phone: Comment on above: Pattern: Unlabored 01-20-2012 09:02-0400 BMI (Body Mass Index) 34.92 kg/m2 Omayra Medina RN [facility] Work Phone: 01-20-2012 09:02-0400 Body Temperature 96.5 [degF] Omayra Medina RN [facility] Work Phone: Comment on above: Method: Oral 01-20-2012 09:02-0400 Body weight 113.57 kg Omayra Medina RN [facility] Work Phone: 01-20-2012 09:02-0400 BP Diastolic 84 mm[Hg] Omayra Medina RN [facility] Work Phone: Comment on above: Patient Position: Sitting; Cuff Location : Left Arm; Cuff Size: Large 01-20-2012 09:02-0400 BP Systolic 138 mm[Hg] Omayra Medina RN [facility] Work Phone: Comment on above: Patient Position: Sitting; Cuff Location : Left Arm; Cuff Size: Large 01-20-2012 09:02-0400 BSA (Body Surface Area) 2.32 m2 Omayra Medina RN [facility] Work Phone: 01-20-2012 09:02-0400 Height 180.34 cm Omayra Medina RN [facility] Work Phone: 01-20-2012 09:02-0400 Pulse (Heart Rate) 60 /min Omayra Medina RN [facility] Work Phone: Comment on above: Pattern: Regular 01-20-2012 09:02-0400 Respiratory Rate 16 /min Omayra Medina RN [facility] Work Phone: Comment on above: Pattern: Unlabored 07-23-2011 10:13-0400 BMI (Body Mass Index) 34.18 kg/m2 Omayra Medina RN [facility] Work Phone: 07-23-2011 10:13-0400 Body Temperature 97.8 [degF] Omayra Medina RN [facility] Work Phone: Comment on above: Method: Oral 07-23-2011 10:13-0400 Body weight 111.16 kg Omayra Messenger RN [facility] Work Phone: 07-23-2011 10:13-0400 BP Diastolic 80 mm[Hg] Omayra Medina RN [facility] Work Phone: Comment on above: Patient Position: Sitting; Cuff Location : Left Arm; Cuff Size: Large 07-23-2011 10:13-0400 BP Systolic 144 mm[Hg] Omayra Medina RN [facility] Work Phone: Comment on above: Patient Position: Sitting; Cuff Location : Left Arm; Cuff Size: Large 07-23-2011 10:13-0400 BSA (Body Surface Area) 2.3 m2 Omayra Medina RN [facility] Work Phone: 07-23-2011 10:13-0400 Height 180.34 cm Omayra Medina RN [facility] Work Phone: 07-23-2011 10:13-0400 Pulse (Heart Rate) 60 /min Omayra Medina RN [facility] Work Phone: Comment on above: Pattern: Regular 07-23-2011 10:13-0400 Respiratory Rate 20 /min Omayra Medina RN [facility] Work Phone: Comment on above: Pattern: Unlabored 12-05-2009 12:47-0500 Body Temperature 98 [degF] Omayra Medina RN [facility] Work Phone: Comment on above: Method: Oral 12-05-2009 12:47-0500 Body weight 107.73 kg Omayra Medina RN [facility] Work Phone: 12-05-2009 12:47-0500 BP Diastolic 80 mm[Hg] Omayra Medina RN [facility] Work Phone: Comment on above: Patient Position: Sitting; Cuff Location : Left Arm; Cuff Size: Large 12-05-2009 12:47-0500 BP Systolic 118 mm[Hg] Omayra Medina RN [facility] Work Phone: Comment on above: Patient Position: Sitting; Cuff Location : Left Arm; Cuff Size: Large 12-05-2009 12:47-0500 Pulse (Heart Rate) 80 /min Omayra Medina RN [facility] Work Phone: Comment on above: Pattern: Regular 12-05-2009 12:47-0500 Respiratory Rate 20 /min Omayra Medina RN [facility] Work Phone: Comment on above: Pattern: Unlabored 07-06-2009 08:35-0400 Body weight 107.73 kg Omayra Medina RN [facility] Work Phone: 07-06-2009 08:35-0400 BP Diastolic 78 mm[Hg] Omayra Medina RN [facility] Work Phone: Comment on above: Patient Position: Sitting; Cuff Location : Left Arm; Cuff Size: Large 07-06-2009 08:35-0400 BP Systolic 128 mm[Hg] Omayra Medina RN [facility] Work Phone: Comment on above: Patient Position: Sitting; Cuff Location : Left Arm; Cuff Size: Large 07-06-2009 08:35-0400 Head Circumference 0 cm Jeanine Rock [facility] Work Phone: 07-06-2009 08:35-0400 Head Occipital-frontal circumference 0 cm Omayra Medina RN [facility]; [facility] Work Phone: 07-06-2009 08:35-0400 Height 0 cm Omayra Medina RN [facility] Work Phone: 07-06-2009 08:35-0400 Pulse (Heart Rate) 64 /min Omayra Medina RN [facility] Work Phone: Comment on above: Pattern: Regular 07-06-2009 08:35-0400 Respiratory Rate 20 /min Omayra Medina RN [facility] Work Phone: Comment on above: Pattern: Unlabored 01-03-2009 09:41-0400 Body weight 109.77 kg Omayra Medina RN [facility] Work Phone: 01-03-2009 09:41-0400 BP Diastolic 70 mm[Hg] Omayra Medina RN [facility] Work Phone: Comment on above: Patient Position: Sitting; Cuff Location : Left Arm; Cuff Size: Large 01-03-2009 09:41-0400 BP Systolic 118 mm[Hg] Omayra Medina RN [facility] Work Phone: Comment on above: Patient Position: Sitting; Cuff Location : Left Arm; Cuff Size: Large 01-03-2009 09:41-0400 Head Circumference 0 cm Jeanine Rock [facility] Work Phone: 01-03-2009 09:41-0400 Head Occipital-frontal circumference 0 cm Omayra Medina RN [facility]; [facility] Work Phone: 01-03-2009 09:41-0400 Height 0 cm Omayra Medina RN [facility] Work Phone: 01-03-2009 09:41-0400 Pulse (Heart Rate) 72 /min Omayra Medina RN [facility] Work Phone: Comment on above: Pattern: Regular 01-03-2009 09:41-0400 Respiratory Rate 20 /min Omayra Medina RN [facility] Work Phone: Comment on above: Pattern: Unlabored 10-26-2007 15:38-0500 Body weight 112.58 kg Omayra Medina RN [facility] Work Phone: 10-26-2007 15:38-0500 BP Diastolic 68 mm[Hg] Omayra Medina RN [facility] Work Phone: Comment on above: Patient Position: Sitting; Cuff Location : Right Arm; Cuff Size: Standard 10-26-2007 15:38-0500 BP Systolic 120 mm[Hg] Omayra Medina RN [facility] Work Phone: Comment on above: Patient Position: Sitting; Cuff Location : Right Arm; Cuff Size: Standard 10-26-2007 15:38-0500 Head Circumference 0 cm Jeanine Rock [facility] Work Phone: 10-26-2007 15:38-0500 Head Occipital-frontal circumference 0 cm Omayra Medina RN [facility]; [facility] Work Phone: 10-26-2007 15:38-0500 Height 0 cm Omayra Medina RN [facility] Work Phone: 10-26-2007 15:38-0500 Pulse (Heart Rate) 60 /min Omayra Medina RN [facility] Work Phone: Comment on above: Pattern: Regular 10-26-2007 15:38-0500 Respiratory Rate 16 /min Omayra Medina RN [facility] Work Phone: Comment on above: Pattern: Unlabored 06-01-2007 16:30-0400 Body Temperature 98.2 [degF] Jana Church [facility] Work Phone: Comment on above: Method: Oral 06-01-2007 16:30-0400 Body weight 0 kg Jana Church [facility] Work Phone: 06-01-2007 16:30-0400 BP Diastolic 78 mm[Hg] Jana Church [facility] Work Phone: Comment on above: Patient Position: Sitting; Cuff Location : Right Arm; Cuff Size: Standard 06-01-2007 16:30-0400 BP Systolic 130 mm[Hg] Jana Church [facility] Work Phone: Comment on above: Patient Position: Sitting; Cuff Location : Right Arm; Cuff Size: Standard 06-01-2007 16:30-0400 Head Circumference 0 cm Jeanine Rock [facility] Work Phone: 06-01-2007 16:30-0400 Head Occipital-frontal circumference 0 cm Jana Church [facility]; [facility] Work Phone: 06-01-2007 16:30-0400 Height 0 cm Jana Church [facility] Work Phone: 06-01-2007 16:30-0400 Pulse (Heart Rate) 84 /min Jana Church [facility] Work Phone: Comment on above: Pattern: Regular 06-01-2007 16:30-0400 Respiratory Rate 16 /min Jana Church [facility] Work Phone: Comment on above: Pattern: Unlabored 05-20-2007 08:15-0400 Body Temperature 98.2 [degF] Luana Long [facility] Work Phone: Comment on above: Method: Oral 05-20-2007 08:15-0400 Body weight 0 kg Luana Long [facility] Work Phone: 05-20-2007 08:15-0400 BP Diastolic 98 mm[Hg] Luana Asifoliver [facility] Work Phone: Comment on above: Patient Position: Sitting; Cuff Location : Right Arm; Cuff Size: Large 05-20-2007 08:15-0400 BP Systolic 152 mm[Hg] Luana Asifoliver [facility] Work Phone: Comment on above: Patient Position: Sitting; Cuff Location : Right Arm; Cuff Size: Large 05-20-2007 08:15-0400 Head Circumference 0 cm Jeanine Rock [facility] Work Phone: 05-20-2007 08:15-0400 Head Occipital-frontal circumference 0 cm Luana Ethan [facility]; [facility] Work Phone: 05-20-2007 08:15-0400 Height 0 cm Luana Ethan [facility] Work Phone: 05-20-2007 08:15-0400 Pulse (Heart Rate) 72 /min Luana Ethan [facility] Work Phone: Comment on above: Pattern: Regular 05-20-2007 08:15-0400 Respiratory Rate 20 /min Luana Ethan [facility] Work Phone: Comment on above: Pattern: Unlabored 04-27-2007 15:33-0400 Body weight 107.96 kg Mikayla Tanner INTERIOR WIRER [facility] Work Phone: 04-27-2007 15:33-0400 BP Diastolic 80 mm[Hg] Mikayla Tanner INTERIOR WIRER [facility] Work Phone: Comment on above: Patient Position: Sitting; Cuff Location : Left Arm; Cuff Size: Standard 04-27-2007 15:33-0400 BP Systolic 116 mm[Hg] Mikayla Tanner JOSÉ MIGUEL [facility] Work Phone: Comment on above: Patient Position: Sitting; Cuff Location : Left Arm; Cuff Size: Standard 04-27-2007 15:33-0400 Head Circumference 0 [facility] Work [facility]: 04-27-2007 15:33-0400 Head Occipital-frontal circumference 0 cm Mikayla Tanner LPN [facility]; [facility] Work Phone: 04-27-2007 15:33-0400 Height 0 cm Mikayla Tanner LPN [facility] Work Phone: 04-27-2007 15:33-0400 Pulse (Heart Rate) 74 /min Mikayla Tanner LPN [facility] Work Phone: Comment on above: Pattern: Regular 04-27-2007 15:33-0400 Respiratory Rate 20 /min Mikayla Tanner LPN [facility] Work Phone: Comment on above: Pattern: Unlabored 04-13-2007 16:22-0400 Body weight 107.96 kg Omayra Medina [facility] Work Phone: 04-13-2007 16:22-0400 BP Diastolic 82 mm[Hg] Omayra Medina [facility] Work Phone: Comment on above: Patient Position: Sitting; Cuff Location : Right Arm; Cuff Size: Large 04-13-2007 16:22-0400 BP Systolic 118 mm[Hg] Omayra SkillWiz [facility] Work Phone: Comment on above: Patient Position: Sitting; Cuff Location : Right Arm; Cuff Size: Large 04-13-2007 16:22-0400 Head Circumference 0 cm Jeanine Rock [facility] Work Phone: 04-13-2007 16:22-0400 Head Occipital-frontal circumference 0 cm Omayra Medina [facility]; [facility] Work Phone: 04-13-2007 16:22-0400 Height 0 cm Omayra Medina [facility] Work Phone: 04-13-2007 16:22-0400 Pulse (Heart Rate) 72 /min Omayra SkillWiz [facility] Work Phone: Comment on above: Pattern: Regular 04-13-2007 16:22-0400 Respiratory Rate 20 /min Omayra SkillWiz [facility] Work Phone: Comment on above: Pattern: Unlabored 10-10-2006 08:29-0500 Body Temperature 98.4 [degF] CONRADO Farhan INTERIOR WIRER [facility] Work Phone: Comment on above: Method: Oral 10-10-2006 08:29-0500 Body weight 106.14 kg CONRADO Real LPN [facility] Work Phone: 10-10-2006 08:29-0500 BP Diastolic 84 mm[Hg] CONRADO Real LPN [facility] Work Phone: Comment on above: Patient Position: Sitting; Cuff Location : Left Arm; Cuff Size: Standard 10-10-2006 08:29-0500 BP Systolic 122 mm[Hg] CONRADO Real LPN [facility] Work Phone: Comment on above: Patient Position: Sitting; Cuff Location : Left Arm; Cuff Size: Standard 10-10-2006 08:29-0500 Head Circumference 0 cm Jeanine Rock [facility] Work Phone: 10-10-2006 08:29-0500 Head Occipital-frontal circumference 0 cm CONRADO Real LPN [facility]; [facility] Work Phone: 10-10-2006 08:29-0500 Height 0 cm CONRADO Real LPN [facility] Work Phone: 10-10-2006 08:29-0500 Pulse (Heart Rate) 78 /min CONRADO Real LPN [facility] Work Phone: Comment on above: Pattern: Regular 10-10-2006 08:29-0500 Respiratory Rate 20 /min CONRADO Real LPN [facility] Work Phone: Comment on above: Pattern: Unlabored 09-18-2006 09:58-0500 Body Temperature 98.8 [degF] Jeanine Rock [facility] Work Phone: Comment on above: Method: Undefined 09-18-2006 09:58-0500 Body weight 0 kg Jeanine Rock [facility] Work Phone: 09-18-2006 09:58-0500 BP Diastolic 80 mm[Hg] Jeanine Rock [facility] Work Phone: Comment on above: Patient Position: Sitting; Cuff Location : Left Arm; Cuff Size: Large 09-18-2006 09:58-0500 BP Systolic 120 mm[Hg] Jeanine Rock [facility] Work Phone: Comment on above: Patient Position: Sitting; Cuff Location : Left Arm; Cuff Size: Large 09-18-2006 09:58-0500 Head Circumference 0 cm Jeanine Rock [facility] Work Phone: 09-18-2006 09:58-0500 Head Occipital-frontal circumference 0 cm Jeanine Rock DO Work Phone: [facility]; [facility] Work Phone: 09-18-2006 09:58-0500 Height 0 cm Jeanine Rock [facility] Work Phone: 09-18-2006 09:58-0500 Pulse (Heart Rate) 72 /min Jeanine Rock [facility] Work Phone: Comment on above: Pattern: Regular 09-18-2006 09:58-0500 Respiratory Rate 16 /min Jeanine Rock [facility] Work Phone: Comment on above: Pattern: Undefined Encounters Encounter Date Encounter Type Care Provider Facility Start: 07-02-2025 ambulatory Rich Sams Facility :[facility] Start: 06-27-2025 End: 06-27-[address] Jose See DO -[facility] Work Phone: Start: 06-27-2025 End: 06-27-[address] Rich Sams MD Work Phone: -[facility] Start: 06-21-2025 End: 06-21-[address] Rich Sams MD Work Phone: -[facility] Start: 06-21-2025 End: 06-21-[address] Rich Sams MD -[facility]iology [facility] Work Phone: Start: 06-21-2025 End: 06-21-[address] Rich Sams MD -[facility] Work Phone: Start: 06-21-2025 End: 06-21-[address] Rich Sams MD Work Phone: [facility] Start: 06-21-2025 End: 06-21-2025 ambulatory Rich Sams Facility:[facility] Start: 03-07-2025 End: 03-07-2025 Patient encounter procedure Romero Vasquez PA -[facility] Work Phone: Start: 03-07-2025 End: 03-07-[address] Rich Sams MD Work Phone: [facility] Work Phone: Start: 02-12-2025 End: 02-12-2025 Patient encounter procedure Cheyenne Wongheri PA -[facility] Work Phone: Start: 02-12-2025 End: 02-12-2025 ambulatory Rich Sams Facility:[facility] Start: 11-04-2024 End: 12-06-2024 ambulatory RICH SAMS MD Facility:[facility] Start: 11-04-2024 End: 12-06-2024 Physical therapy management RICH SAMS MD [facility] Start: 10-27-2024 End: 10-27-2024 ambulatory Rich Sams Facility:[facility] Start: 08-19-2024 End: 08-19-2024 ambulatory Rich Sams [place] Start: 07-28-2024 End: 07-28-2024 ambulatory Rich Sams Facility:[facility] Start: 07-27-2024 End: 07-27-2024 ambulatory Rich Sams Facility:[facility] Start: 07-15-2024 End: 07-15-2024 ambulatory Rich Sams Facility:[facility] Start: 04-18-2023 End: 04-18-[address] Rich Sams Work Phone: [facility] Work Phone: Start: 04-18-2023 End: 04-18-[address] Rich Sams Work Phone: [facility] Work Phone: Start: 04-17-2023 End: 04-17-2023 Encounter for general adult medical examination without abnormal findings Dr. Rich Sams Work Phone: [facility] Start: 04-17-2023 End: 04-17-[address] Rich Sams Work Phone: [facility] Work Phone: Start: 10-03-[address] Rich Sams Work Phone: [facility] Start: 09-27-2020 End: 09-27-2020 Office outpatient visit 25 minutes Jeanine Rock [facility] Start: 09-29-2019 End: 09-29-2019 Office outpatient visit 25 minutes Jeanine Rock [facility] Start: 05-22-2017 End: 05-22-2017 Office outpatient visit 25 minutes Jeanine Rock [facility] Start: 05-12-2017 End: 05-12-2017 Office outpatient visit 15 minutes Jeanine Rock [facility] Start: 01-30-2016 End: 01-30-2016 Office outpatient visit 25 minutes Jeanine Rock [facility] Start: 01-26-2016 End: 01-26-2016 Office outpatient visit 15 minutes Jeanine Rock [facility] Start: 11-08-2015 End: 11-08-2015 Periodic preventive med est patient 40-64yrs Jeanine Rock [facility] Start: 10-25-2015 End: 10-25-2015 Phone Encounter Jeanine Arvizu [facility] Start: 10-04-2014 End: 10-04-2014 Office outpatient visit 25 minutes Jeanine Arvizu [facility] Start: 05-20-2014 End: 05-20-2014 Office outpatient visit 15 minutes Jeanine Rock [facility] Start: 01-28-2014 End: 01-30-2014 Patient encounter procedure Jeanine Arvizu [facility] Start: 01-14-2014 End: 01-14-2014 Patient encounter procedure Jeanine Rock [facility] Start: 09-15-2013 End: 09-15-2013 Patient encounter procedure Jeaninetomasz Valenciaon [facility] Start: 08-16-2013 End: 08-16-2013 Patient encounter procedure Jeanine Rock [facility] Start: 06-25-2013 End: 06-25-2013 Phone Encounter Jeaninetomasz Rock [facility] Start: 07-02-2012 End: 07-02-2012 Annotation/Addendum Jeaninetomasz Rock [facility] Start: 06-24-2012 End: 06-24-2012 Patient encounter procedure Jeaninetomasz Valenciaon [facility] Start: 01-20-2012 End: 01-20-2012 Patient encounter procedure Jeanine Shweta [facility] Start: 07-23-2011 End: 07-23-2011 Patient encounter procedure Jeaninetomasz Valenciaon [facility] Start: 12-05-2009 End: 12-05-2009 Patient encounter procedure Jeanine Shweta [facility] Start: 07-06-2009 End: 07-06-2009 Patient encounter procedure Jeaninetomasz Valenciaon [facility] Start: 01-03-2009 End: 01-03-2009 Patient encounter procedure Jeaninetomasz Valenciaon [facility] Start: 11-23-2007 End: 11-23-2007 Office outpatient visit 10 minutes Jeanine Arvizu [facility] Start: 11-03-2007 End: 11-03-2007 Office outpatient visit 10 minutes Jeanine Arvizu [facility] Start: 10-26-2007 End: 10-26-2007 Office outpatient visit 40 minutes Jeanine Arvizu [facility] Start: 06-01-2007 End: 06-01-2007 Patient encounter procedure Jeanine Shweta [facility] Start: 05-20-2007 End: 05-20-2007 Office outpatient visit 25 minutes Jeanine Rock [facility] Start: 04-27-2007 End: 04-27-2007 Nursing evaluation of patient and report Jeanine Arvizu [facility] Start: 04-13-2007 End: 04-13-2007 Patient encounter procedure Jeanine Arvizu [facility] Start: 10-10-2006 End: 10-10-2006 Office outpatient visit 15 minutes Jeanine Rock [facility] Start: 09-18-2006 End: 09-18-2006 Office outpatient visit 40 minutes Jeanine Rock [facility] Start: 09-08-2006 End: 09-08-2006 Historical Summary Jeanine Rock [facility] Patient encounter procedure Jeanine Rock DO Work Phone: [facility]; [facility] Work Phone: Patient encounter procedure Cary Mathew CMA [facility]; [facility] Work Phone: Procedures Date Procedure Procedure Detail Performing Clinician Start: 06-21-2025 End: 06-21-2025 X-ray of knee, four or more views Dr[address] Rich Sams MD Work Phone: Start: 07-18-2021 End: 07-18-2021 Internal Medicine Office Visit Comments: See Note; NOTES: [facility] [place] [address] [place] [address] OFFICE VISIT Date of Service: 07/18/21 MR#: [id number] Acct: [id number] Name: MIGUELANGEL GALLAGHER Rep #: [id number] : 1960 Provider: Dr. 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 Rich Sams MD) History of fracture History of pneumonia Hyperlipemia Hypertension Hypertriglyceridemia Family History (Updated 07/18/21 @ 09:50 by Louise Julio) Father Heart disease Myocardial infarction, Onset Age: 39 CVA (cerebral vascular accident) Grandfather Heart disease CVA (cerebral vascular accident) Social History (Updated 07/18/21 @ 09:51 by Louise Julio) Smoking Status: Never smoker Tobacco: How many years used: 4 alcohol intake: current alcohol intake frequency: a few times a week substance use type: does not use what type of physical activity do you participate in: none HPI HPI Chief Complaint: Establish care Details: MIGUELANGEL GALLAGHER, is a 61 M who presents to the office today to establish medical care. 61-year-old male, who was previously following with [facility], Dr. Rock. He has not been there in over a year he states. He has elected to transition care. He has a history of hyperlipidemia, hypertension. Was previously on simvastatin 80 mg but as he ran out of it about 6 or 8 months ago, and he elected not to refill it as he was looking at information regarding statins any really did not want to be on a statin. He is concerned about long-term implications of being on a statin. History hypertension has been relatively stable on his current medical regimen. Currently taking losartan and hydrochlorothiazide as separate medication. Seems to be well-tolerated. He has had colonoscopy in the past to Dr. García. He states it was normal. We will try and obtain copies of that. He has a lot of questions today about COVID-19 vaccine. He works for a company in [place]. This does require some travel and working in a lot of different locations in larger cities. Apparently it is getting more difficult as some of the areas are requiring individuals to be vaccinated before entering the facilities. He states the employer is looking towards having to require it because of that reason. He believes he had COVID-19 himself probably more than a year ago and wonders about getting antibodies tested. We spent considerable time discussing this issue and I think that while it is reasonable to look at the antibodies to ensure he has naturally occurring antibodies which will give him good protection, that the vaccine requirement is still not likely to be waived even with evidence of antibodies. Finally, he has noted a lump in the right lower neck he has had for perhaps 5 or 6 years. It has been slowly enlarging, not painful. While he notes that it is in the neck and he can feel it there is not causing difficulty in swallowing at this point in time. He states that his last office visit a couple of years ago it was recommended ultrasound which was initially arranged but due to COVID-19 changes and work changes he never completed or followed through on that. Again has noted it to be slowly enlarging. Review of systems per chart. No chest pain, shortness of breath, wheeze, cough, congestion, fever, chills, nausea, vomiting. No diarrhea or constipation. Bowel movements are regular. No blood in the stool. No dysuria, urgency or frequency. He does note some narrowing of the urinary stream over the years. Usually gets up once nightly to urinate. No specific musculoskeletal concerns. No frequent headaches. No focal neurologic concerns. No endocrine specific concerns. He notes that from a diet standpoint he has tried to do better over the last few years, incorporating on a regular basis i.e. daily, some fresh fruits and vegetables but does eat some processed foods, deep-fried foods periodically, fair amount of meat. Physical exam. Vital signs on chart. EOMI. PERRLA. Sclera are clear. TMs are unremarkable with normal light reflexes. Canals are unremarkable. Posterior pharynx is unremarkable. Good dentition. No cervical or supraclavicular lymph nodes enlarged or tender. No clear thyromegaly. No thyroid nodules readily palpable. Lungs are without wheeze, rhonchi, rales. No E/A changes are heard. Heart is regular. Not tachycardic. No clear murmur, rub, or gallop is identified. The abdomen is soft. Bowel sounds are present. Nontender nondistended abdomen. No clear palpable masses in the abdomen. No significant leg edema. Cranial nerve examination 2 through 12 are grossly unremarkable nonlateralizing. Deep tendon reflexes are 2/4 and symmetric at the bicep, tricep, Achilles, patella. No ankle clonus. No obvious rashes. No obvious significant skin lesions are identified. Normal and symmetric strength at the shoulder shrug, hand sand cutter, bicep, tricep, hip flexors, hip extensors, leg flexors, leg extensors, dorsi and plantar flexion. ROS Const Constitutional: No body ache, chills, excessive sweating, fatigue, fever(s), frequent falls, headache(s), snoring, weakness, weight change, sleep problems or change in appetite Eyes Eyes: No blurry vision, change in vision, eye pain or Light sensitivity ENT ENT: No abnormal hearing, ear or mastoid pain, tinnitus, nasal congestion, headache(s), neck pain or sore throat Resp Respiratory: No cough, shortness of breath, snoring or wheezing Cardio Cardiology: No chest pain at rest, chest pain with exertion, excessive sweating, shortness of breath, dyspnea on exertion, lightheadedness, orthopnea or palpitations Gastro GI: No abdominal pain, change in bowel habits, constipation, cramping, diarrhea, nausea/dyspepsia or vomiting Genitourinary Male: No burning urination, painful urination, urinary incontinence or urinary frequency Musc Musculoskeletal: No abnormal gait, joint pain, back pain, limited range of motion, neck pain, numbness or tingling Skin Skin: No dry skin, redness, lesions, itchy eyes, rash or wounds Neuro Neurology: No abnormal gait, abnormal hearing, abnormal speech, dizziness, weakness, frequent falls, headache(s), memory loss, numbness or tingling Psych Psychiatric: No anxiety, No change in appetite, No depression, No memory loss and No Thoughts of harming yourself/Others Endo Endocrine: No cold intolerance, excessive sweating, fatigue, flushing, heat intolerance, increased thirst/drinking, increased hunger or weight change Aller/Imm Allergy/Immunologic: No itchy eyes, seasonal allergy symptoms, hives or wheezing Gentry/Lymp Hematologic/Lymphatic: No easy bleeding, easy bruising or enlarged lymph nodes Coding Level of Care Code Off vis,new,level 4 Diagnoses Thyroid enlargement E04.9 Hypertriglyceridemia E78.1 Hyperlipemia E78.5 Hypertension I10 Encounter to establish care Z76.89 Time Spent (min) 45 Assessment and Plan Assessment and Plan (1) Thyroid enlargement: Status: Acute Orders: Orders: [facility] Metabolic Profil Today Free T3 Today Lipid Profile Today T4 Free Direct Today Thyroid Stim Hormone (TSH) Today CBC W/Diff, Automated Today Thyroid Today (2) Hypertriglyceridemia: Status: Acute Orders: Orders: [facility] Metabolic Profil Today Lipid Profile Today Hemoglobin A1c Today CBC W/Diff, Automated Today (3) Hyperlipemia: Status: Acute Orders: Orders: [facility] Metabolic Profil Today Lipid Profile Today Hemoglobin A1c Today CBC W/Diff, Automated Today Thyroid Today (4) Hypertension: Status: Chronic Orders: Orders: [facility] Metabolic Profil Today Lipid Profile Today Thyroid Stim Hormone (TSH) Today Hemoglobin A1c Today CBC W/Diff, Automated Today Thyroid Today (5) Encounter to establish care: Plan Details Other Medications: Discontinued: levofloxacin Discontinued Reason: Discontinued by PCP/other physicians 750 mg PO DAILY 7 TABLETS 0RF Other Orders: Orders: Vitamin D,25 Hydroxy Today E55.9 [facility] Metabolic Profil Today Z12.5 Lipid Profile Today E55.9, Z12.5 PSA,Total - Annual Screen Today Z12.5 CBC W/Diff, Automated Today E55.9, Z12.5 Additional Comments: Patient is a 61-year-old male who presents today to establish medical care. [facility] previously following with [facility]/Dr. [facility], but has not been there and probably well over a year or so. He has elected to transition care here. He has a history of hypertension which on the current regimen seems well controlled. History of hyperlipidemia. No recent old labs to evaluate. His last labs were well over a year ago he states comprehensive. I do not have old records at this point to review. We will update. He was previously on simvastatin which was high dose but upon doing some reading and as well as the fact that he actually ran out of it at 1 point about 6 or 8 months ago he elected not to go back on it. In other words he did not seek refill but based on the information he was reading he really did not want to be on a statin. He has made some dietary nutritional modifications including overall eating better incorporating more fresh fruits and vegetables, smaller amounts of meats, less processed foods. He has had colonoscopy through Dr. García. We will try and obtain those results. He does not need refills on medications today but he also did not bring in the dosages which he will do for us so that we can update the chart and submit new prescriptions. Labs will be obtained as ordered. He is also requesting COVID-19 antibodies. He feels he likely had Covid about a year ago and wants to see if he does have natural antibodies. He will likely need to obtain vaccination regardless as his employer in order to conduct business [id number] is finding it more more difficult to do so without having employees vaccinated. Finally, he has a large perhaps 6 x 10 cm enlarged firm area which appears to be from the right thyroid perhaps right lower lobe. He has noticed this for several years and it has slowly enlarged but not rapidly at any point. He can feel it in the neck but not causing difficulty swallowing. Ultrasound to be obtained. Labs pertinent of the thyroid obtained as well and proceed from here. This would obviously be suspicious for underlying malignant process, albeit slow-growing. Follow-up will depend upon the findings of labs and ultrasound. 45-minute total time this visit. Follow Up: TBD 07/18/21 1127 <Electronically signed by Rich Sams MD> Date Rich Sams MD Cosigner Signature: Date (if applicable) CC: Jeanine Rock DO Work Phone: Start: 05-23-2017 End: 05-24-2017 Sinus/Facial Bone Comments: See Note; NOTES: [facility] Imaging Services [address] [place] [address] Sinus/Facial Bone MR#: [id number] Acct: [id number] Name: MIGUELANGEL GALLAGHER Rep #: [id number] : 1960 M 56 From: Ilya Lang PCP: Jeanine Rock DO Status: REG CLI Study: Sinus/Facial Bone Date of Exam: 05/23/17 Exam# [id number] Ordering Dr: Jeanine Rock DO STUDY: CT MAXILLOFACIAL SINUSES REASON FOR EXAM: Male, 56 years old. Sinus drainage RADIATION DOSAGE (If Supplied By Facility): CTDIvol = ( 29.38 ) mGy, DLP = ( 415.32 ) mGycm TECHNIQUE: The patient was scanned in a multi detector CT scanner. High resolution axial imaging was performed without the administration of intravenous contrast material. Sagittal and coronal images were reconstructed. Individualized dose optimization techniques were used for this CT. COMPARISON: None. FINDINGS: FRONTAL SINUSES: Normal aeration, without mucosal inflammatory disease. ETHMOIDAL SINUSES: There is mild mucosal thickening in the ethmoid air cells. MAXILLARY SINUSES: There is mucosal thickening in the maxillary sinuses. There are NO air-fluid levels. SPHENOIDAL SINUSES: Normal aeration, without mucosal inflammatory disease. There is patency of the bilateral maxillary infundibuli with normal uncinate processes, ethmoid bullae, and hiatus semilunaris. Normal bilateral middle turbinates. Normal bilateral inferior turbinates. Normal midline nasal septum. There is patency of the bilateral nasal airways. The visualized osseous structures are normal. The visualized bilateral orbital contents are normal. CT/Sinus/Facial Bone IMPRESSION: There is mucosal thickening in the ethmoid and maxillary sinuses. There are NO air-fluid levels. The ostiomeatal units are patent. Electronically Signed: Ilya Lang MD at 7:22 EDT , Service support , CC: Jeanine Rock DO Well Flow Operator: Signed Jeanine Rock Work Phone: Start: 05-22-2017 End: 05-22-2017 Chest PA and Lateral Comments: See Note; NOTES: [facility] Imaging Services [address] [place] [address] Chest PA and Lateral MR#: [id number] Acct: [id number] Name: MIGUELANGEL GALLAGHER Rep #: [id number] : 1960 56 From: Mohit Taylor MD PCP: Jeanine Rock DO Status: REG CLI Study: Chest PA and Lateral Date of Exam: 05/22/17 Exam# [id number] Ordering Dr: Jeanine Rock DO STUDY: X-RAY CHEST REASON FOR EXAM: Male, 56 years old. Pneumonia TECHNIQUE: PA and lateral views of the chest. COMPARISON: Previous study of 05/14/2017 FINDINGS: There are infiltrates of the left upper lobe and left lingula. There is moderate interval resolution of the left upper lobe infiltrate. The left lingular infiltrate remains unchanged. There also appears to be a minimal left lower lobe infiltrate, which may have slightly worsened in the interval. The right lung remains clear. There Is no demonstrated pleural abnormality. Normal size heart. Normal mediastinum and ayush. Normal visualized pulmonary arteries. Normal visualized aortic arch and descending thoracic aorta. Normal visualized thoracic spine. Normal visualized ribs, clavicles, and shoulders. There is no demonstrated abnormality of the visualized soft tissue structures of the upper abdomen. RAD/Chest PA and Lateral IMPRESSION: 1. Interval improvement of left upper lobe infiltrate. 2. The left lingular infiltrate appears stable. 3. A small left lower lobe infiltrate is also noted which appears to have slightly worsened in the interval. Electronically Signed: Mohit Taylor MD at 16:10 EDT , Service support , CC: Jeanine Rock DO Well Flow Operator: Signed Jeanine Rock Work Phone: Start: 05-15-2017 End: 05-15-2017 Discharge Instruction Comments: See Note; NOTES: [facility] Medical Records Department [address] [place] [address] Discharge Instruction 05/14/17 2343 MR#: [id number] Acct: [id number] Name: MIGUELANGEL GALLAGHER Rep #: [id number] : 1960 56 From: Jamal Deluca MD PCP: Jeanine Rock DO Status: DEP ER ED Disposition - Plan for ED Patient: Disposition: Home or Assisted Living Chief Complaint: Fever Instructions: ED Pneumonia Adult Prescriptions: Levofloxacin [Levaquin] 750 mg PO DAILY #7 tablet Referrals: Jeanine Rock DO [Primary Care Provider] - What to do if you have Problems For any increased pain, shortness of breath, bleeding, nausea or vomiting, chest pain, or any unexpected problems, contact your Primary Care Provider. Call [facility] ([phone]) or report to the closest Emergency Room. Call 911 if necessary. 05/15/17 0626 <Electronically signed by Jamal Deluca MD> Date Jamal Deluca MD Cosigner Signature (If Indicated): Date CC: Jeanine Rivera Start: 05-15-2017 End: 05-15-2017 Emergency Department Summary Comments: See Note; NOTES: [facility] Medical Records Department [address] [address] Emergency Department Summary 05/14/17 2341 MR#: [id number] Acct: [id number] Name: MIGUELANGEL GALLAGHER Rep #: [id number] : 1960 56 From: Jamal Deluca MD PCP: Jeanine Rock DO Status: DEP ER - ER Visit Summary Date of Service: 05/14/17 Chief Complaint: [] Complaining of fever History of Present Illness: The patient is a 56 M [] complaining of fever for the last 5 days gradual onset and is intermittent. Has had a productive green cough. He is using Tylenol. Not a smoker. Physical Examination: [] Vital signs reviewed General: Well-nourished well-developed Head: Normocephalic atraumatic Eyes: Pupils equal round and reactive to light extraocular movements intact ENT: TMs clear no hemotympanum no trauma Neck: Nontender full range of motion Cardiovascular: Regular rate rhythm no murmurs normal S1-S2 Respiratory: No distress clear to auscultation bilaterally chest nontender Abdomen: Soft nontender nondistended normal bowel sounds no masses Back: Nontender no CVA tenderness Extremities: Nontender active range of motion 4 extremities no trauma Skin: Normal color no trauma Neuro alert oriented cranial nerves II through XII intact normal strength sensation reflexes Test Results: [] Emergency Department Course and Treatment: [] X-ray shows a left-sided diffuse pneumonia infiltrate. Given levofloxacin Imodium and ibuprofen. Will continue these at home. This time I do not feel he needs lab work or further imaging. He is nontoxic and well start antibiotics. Counseled on what to follow-up for and what to return for. Treatment Plan: [] Disposition: [] Impression: [] Left-sided pneumonia, acute diarrhea ED Disposition - Plan for ED Patient: Chief Complaint: Fever Referrals: Jeanine Rock, [Primary Care Provider] - What to do if you have Problems For any increased pain, shortness of breath, bleeding, nausea or vomiting, chest pain, or any unexpected problems, contact your Primary Care Provider. Call [facility] ([phone]) or report to the closest Emergency Room. Call 911 if necessary. 05/15/17625 <Electronically signed by Jamal Deluca MD> Date Jamal Deluca MD Cosigner Signature (If Indicated): Date CC: Jeanine Rivera Start: 05-14-2017 End: 05-14-2017 Chest PA and Lateral Comments: See Note; NOTES: [facility] Imaging Services [address] [place] [address] Verdana 4d Chest PA and Lateral MR#: [id number] Acct: [id number] Name: MIGUELANGEL GALLAGHER Rep #: [id number] : 1960 M 56 From: Mariama Fernandez MD PCP: Jeanine Rock DO Status: REG ER Study: Chest PA and Lateral Date of Exam: 05/14/17 Exam# [id number] Ordering Dr: Jamal Deluca MD STUDY: X-RAY CHEST REASON FOR EXAM: Male, 56 years old. Cough and fever for 3 days TECHNIQUE: 2 views COMPARISON: None. FINDINGS: The lung bragg are well-expanded with a large area of consolidation in the left upper lobe extending into the lingula. There is probably a small amount of infiltrate in the left lower lobe as the posterior left diaphragm is not as clearly visualized. Negative for substantial pleural effusion. The right lung is expanded and clear. Normal size heart. Normal mediastinum and ayush. Normal visualized pulmonary arteries. Normal visualized aortic arch and descending thoracic aorta. There are diffuse degenerative changes of the visualized thoracic spine. Normal visualized ribs, clavicles, and shoulders. There is no demonstrated abnormality of the visualized soft tissue structures of the upper abdomen. RAD/Chest PA and Lateral IMPRESSION: Large area of consolidation in the left upper lobe extending into the lingula and probably a smaller infiltrate at the left posterior lung base. Potential pneumonia. Negative for pleural effusion. The right lung is expanded and clear. Electronically Signed: Mariama Fernandez MD at 23:44 EDT , Service support , CC: Jeanine Rock DO; Jamal Deluca MD Well Flow Operator: Signed Jeanine Rock Start: 05-20-2014 End: 05-20-2014 Ecg routine ecg w/least 12 lds w/i&r [MEASUREMENTS ANALYSIS] Date of Test: 05/20/2014 09:36:52; Heart Rate: 64; MN Interval: 176; QRS: 114; QT Interval: 420; Corrected QT Interval (QTc): 427; P Wave [place]: 37; QRS Wave [place]: -8; T Wave [place]: -1; Blood Pressure: 124/80 [ECG DIAGNOSTIC STATEMENTS] Date of Test: 05/20/2014 09:36:52; Summary: Sinus Rhythm -Nonspecific QRS widening. BORDERLINE Jeanine Rock Work Phone: Comment on above: nsr no acute chg Plan of Treatment Date Care Activity Detail Author Start: 06-21-2025 End: 06-21-2025 X-ray of knee, four or more views Knee 4 or More Views [facility] Start: 06-21-2025 XR Knee GE 4 Views [facility] Start: 09-27-2020 Lipoprotein blood ester numbers & subclasses NMR Profile (69553) [facility]; [facility] Work Phone: Start: 09-27-2020 HbA1c (Bld) [Mass fraction] HGB A1C (60097) [facility]; [facility] Work Phone: Start: 09-27-2020 Assay of prostate specific antigen total PSA (PROSTATE SPECIFIC ANTIGEN) (V76.44) [facility]; [facility] Work Phone: Start: 09-27-2020 TSH Qn TSH (61197) [facility]; [facility] Work Phone: Start: 09-27-2020 Urnls dip stick/tablet reagent auto microscopy URINALYSIS, W/ MICRO (65107) [facility]; [facility] Work Phone: Start: 09-27-2020 Urine albumin quantitative MICROALBUMIN: CREATININE RATIO (94372) AND (35216) [facility]; [facility] Work Phone: Start: 09-27-2020 Comprehensive metabolic panel METABOLIC PANEL, COMPREHENSIVE (65088) [facility]; [facility] Work Phone: Start: 09-27-2020 Blood count complete auto&auto difrntl wbc CBC W/AUTO DIFF WBC (20307) [facility]; [facility] Work Phone: Start: 09-27-2020 Patient Education EFUDEX INSTRUCTIONS [facility]; [facility] Work Phone: Start: 09-27-2020 Procedure Education Eprescribed prescriptions (G8553) [facility]; [facility] Work Phone: Start: 09-27-2020 Provider Instructions for Treatment [facility]; [facility] Work Phone: Start: 09-29-2019 Assay of free thyroxine T4, FREE (THYROXINE) (08731) [facility]; [facility] Work Phone: Start: 09-29-2019 Free T4 [Mass/Vol] T4, FREE (THYROXINE) (08272) [facility] Work Phone: Start: 09-29-2019 Assay of triiodothyronine t3 free T3, FREE (TRIDOTHYRONINE) (49967) [facility]; [facility] Work Phone: Start: 09-29-2019 Free T3 [Mass/Vol] T3, FREE (TRIDOTHYRONINE) (34217) [facility] Work Phone: Start: 09-29-2019 HbA1c (Bld) [Mass fraction] HGB A1C (81175) [facility] Work Phone: Start: 09-29-2019 Hemoglobin glycosylated a1c HGB A1C (18838) [facility]; [facility] Work Phone: Start: 09-29-2019 Assay of thyroid stimulating hormone tsh TSH (10648) [facility]; [facility] Work Phone: Start: 09-29-2019 TSH Qn TSH (41868) [facility] Work Phone: Start: 09-29-2019 Urnls dip stick/tablet reagent auto microscopy URINALYSIS, W/ MICRO (64616) [facility] Work Phone: Start: 09-29-2019 Urine albumin quantitative MICROALBUMIN: CREATININE RATIO (67798) AND (01736) [facility] Work Phone: Start: 09-29-2019 Comprehensive metabolic panel METABOLIC PANEL, COMPREHENSIVE (34560) [facility] Work Phone: Start: 09-29-2019 Blood count complete auto&auto difrntl wbc CBC W/AUTO DIFF WBC (53625) [facility] Work Phone: Start: 09-29-2019 Lipoprotein blood ester numbers & subclasses NMR Profile (32019) [facility] Work Phone: Start: 09-29-2019 Procedure Education Eprescribed prescriptions (G8139) [facility] Work Phone: Start: 09-29-2019 Provider Instructions for Treatment [facility] Work Phone: Start: 05-22-2017 Provider Instructions for Treatment [facility] Work Phone: Start: 05-22-2017 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 (48287) [facility] Work Phone: Start: 05-22-2017 Comprehensive metabolic panel METABOLIC PANEL, COMPREHENSIVE (85321) [facility] Work Phone: Start: 05-22-2017 Blood count complete auto&auto difrntl wbc CBC W/AUTO DIFF WBC (96614) [facility] Work Phone: Start: 05-12-2017 Procedure Education Eprescribed prescriptions (G8553) [facility] Work Phone: Start: 01-30-2016 Procedure Education Eprescribed prescriptions (G8553) [facility] Work Phone: Start: 01-26-2016 Patient Education Sore throat: diagnosis and treatment [facility] Work Phone: Start: 11-08-2015 Provider Instructions for Treatment [facility] Work Phone: Start: 10-04-2014 Blood occult fecal hgb deter ia qual feces 1-3 FECAL OCCULT- Tubes sent home (83395) [facility] Work Phone: Start: 10-04-2014 Assay of prostate specific antigen total PSA (PROSTATE SPECIFIC ANTIGEN) (V76.44) [facility] Work Phone: Start: 10-04-2014 25 hydroxy includes fractions if performed Vitamin D Hydroxy (12560) [facility] Work Phone: Start: 10-04-2014 Assay of thyroid stimulating hormone tsh TSH (73142) [facility]; [facility] Work Phone: Start: 10-04-2014 TSH Qn TSH (68144) [facility] Work Phone: Start: 10-04-2014 Urnls dip stick/tablet reagent auto microscopy URINALYSIS, W/ MICRO (15513) [facility] Work Phone: Start: 10-04-2014 Urine albumin quantitative MICROALBUMIN: CREATININE RATIO (56821) AND (84919) [facility] Work Phone: Start: 10-04-2014 Comprehensive metabolic panel METABOLIC PANEL, COMPREHENSIVE (44384) [facility] Work Phone: Start: 10-04-2014 Lipid panel LIPID PANEL (64821) [facility] Work Phone: Start: 10-04-2014 Blood count complete auto&auto difrntl wbc CBC W/AUTO DIFF WBC (83465) [facility] Work Phone: Start: 10-04-2014 Provider Instructions for Treatment [facility] Work Phone: Start: 05-20-2014 Procedure Education Eprescribed prescriptions (G8553) [facility] Work Phone: Start: 05-20-2014 Provider Instructions for Treatment [facility] Work Phone: Start: 01-14-2014 Provider Instructions for Treatment [facility] Work Phone: Start: 09-15-2013 Provider Instructions for Treatment [facility] Work Phone: Start: 08-17-2013 Assay of thyroid stimulating hormone tsh TSH (36984) [facility]; [facility] Work Phone: Start: 08-17-2013 Blood count manual cell count each CBC WITH MANUAL DIFF (64409) [facility] Work Phone: Start: 08-17-2013 Comprehensive metabolic panel METABOLIC PANEL, COMPREHENSIVE (79205) [facility] Work Phone: Start: 08-17-2013 Lipid panel LIPID PANEL (76759) [facility] Work Phone: Start: 08-17-2013 TSH Qn TSH (73899) [facility] Work Phone: Start: 08-17-2013 Urine albumin quantitative MICROALBUMIN: CREATININE RATIO (54256) AND (95503) [facility] Work Phone: Start: 08-17-2013 Urnls dip stick/tablet reagent auto microscopy URINALYSIS, W/ MICRO (39265) [facility] Work Phone: Start: 08-16-2013 Provider Instructions for Treatment *Colon Cancer Screening [facility] Work Phone: Start: 06-25-2013 Hepatic function panel HEPATIC FUNCTION PANEL (19907) [facility] Work Phone: Start: 06-25-2013 Lipid panel Lipid Panel (64881) [facility] Work Phone: Start: 07-30-2012 Assay of prostate specific antigen total PSA (PROSTATE SPECIFIC ANTIGEN) (V76.44) [facility] Work Phone: Start: 07-21-2012 Assay of prostate specific antigen total PSA (PROSTATE SPECIFIC ANTIGEN) (V76.44) [facility] Work Phone: Start: 06-24-2012 Patient Education High Blood Pressure (Essential Hypertension) *: blood pressure [facility] Work Phone: Start: 06-24-2012 Provider Instructions for Treatment [facility] Work Phone: Start: 06-24-2012 Cobalamin (Vitamin B12) [Mass/Vol] VITAMIN B-12 (CYANOCOBALAMIN) (57169) [facility] Work Phone: Start: 06-24-2012 Cyanocobalamin vitamin b-12 VITAMIN B-12 (CYANOCOBALAMIN) (13499) [facility]; [facility] Work Phone: Start: 06-24-2012 Assay of thyroid stimulating hormone tsh TSH (04440) [facility]; [facility] Work Phone: Start: 06-24-2012 TSH Qn TSH (25856) [facility] Work Phone: Start: 06-24-2012 Urnls dip stick/tablet reagent auto microscopy URINALYSIS, W/ MICRO (20070) [facility] Work Phone: Start: 06-24-2012 Urine albumin quantitative MICROALBUMIN: CREATININE RATIO (16668) AND (04561) [facility] Work Phone: Start: 06-24-2012 Comprehensive metabolic panel METABOLIC PANEL, COMPREHENSIVE (48174) [facility] Work Phone: Start: 06-24-2012 Lipid panel LIPID PANEL (64095) [facility] Work Phone: Start: 06-24-2012 Blood count manual cell count each CBC WITH MANUAL DIFF (34891) [facility] Work Phone: Start: 01-20-2012 Provider Instructions for Treatment [facility] Work Phone: Start: 01-20-2012 Basic metabolic panel calcium total Metabolic Panel, Basic (73575) [facility] Work Phone: Start: 01-20-2012 Hepatic function panel HEPATIC FUNCTION PANEL (10479) [facility] Work Phone: Start: 07-23-2011 Provider Instructions for Treatment [facility] Work Phone: Start: 07-23-2011 Assay of prostate specific antigen total PSA (PROSTATE SPECIFIC ANTIGEN) (V76.44) [facility] Work Phone: Start: 07-23-2011 Assay of thyroid stimulating hormone tsh TSH (37096) [facility]; [facility] Work Phone: Start: 07-23-2011 TSH Qn TSH (37714) [facility] Work Phone: Start: 07-23-2011 Urnls dip stick/tablet reagent auto microscopy URINALYSIS, W/ MICRO (05656) [facility] Work Phone: Start: 07-23-2011 Urine albumin quantitative MICROALBUMIN: CREATININE RATIO (81366) AND (32635) [facility] Work Phone: Start: 07-23-2011 Comprehensive metabolic panel METABOLIC PANEL, COMPREHENSIVE (89061) [facility] Work Phone: Start: 07-23-2011 Lipid panel LIPID PANEL (93702) [facility] Work Phone: Start: 07-23-2011 Blood count manual cell count each CBC WITH MANUAL DIFF (90203) [facility] Work Phone: Start: 07-06-2009 Provider Instructions for Treatment [facility] Work Phone: Start: 01-03-2009 Provider Instructions for Treatment [facility] Work Phone: Start: 10-26-2007 Hepatic function panel HEPATIC FUNCTION PANEL (39631) [facility] Work Phone: Start: 10-26-2007 Lipid panel LIPID PANEL (22738) [facility] Work Phone: Comment on above: do in 6 months Start: 10-26-2007 Blood count complete automated CBC (Auto) (43870) [facility] Work Phone: Start: 10-26-2007 Cobalamin (Vitamin B12) [Mass/Vol] Vitamin B-12 (cyanocobalamin) (34491) [facility] Work Phone: Comment on above: do in 12 weeks Start: 10-26-2007 Cyanocobalamin vitamin b-12 Vitamin B-12 (cyanocobalamin) (60345) [facility]; [facility] Work Phone: Comment on above: do in 12 weeks Start: 10-26-2007 Provider Instructions for Treatment [facility] Work Phone: Start: 05-20-2007 Provider Instructions for Treatment [facility] Work Phone: Start: 04-13-2007 Blood count manual cell count each CBC WITH MANUAL DIFF (17713) [facility] Work Phone: Start: 04-13-2007 Cobalamin (Vitamin B12) [Mass/Vol] Vitamin B-12 (cyanocobalamin) (99432) [facility] Work Phone: Comment on above: DO IN 6 MONTHS Start: 04-13-2007 Cyanocobalamin vitamin b-12 Vitamin B-12 (cyanocobalamin) (72537) [facility]; [facility] Work Phone: Comment on above: DO IN 6 MONTHS Start: 04-13-2007 Lipid panel Lipid Panel (65525) [facility] Work Phone: Comment on above: DO IN 6 MONTHS Start: 04-13-2007 Provider Instructions for Treatment [facility] Work Phone: Start: 10-10-2006 Blood count manual cell count each CBC WITH MANUAL DIFF (97647) [facility] Work Phone: Start: 09-18-2006 Provider Instructions for Treatment Reviewed Lab [facility] Work Phone: Start: 09-18-2006 Blood count manual cell count each CBC WITH MANUAL DIFF (44653) [facility] Work Phone: Start: 09-18-2006 Assay of thyroid stimulating hormone tsh TSH (00995) [facility]; [facility] Work Phone: Start: 09-18-2006 TSH Qn TSH (44039) [facility] Work Phone: Start: 09-18-2006 Urine albumin quantitative MICROALBUMIN URINE QUANT (41649) [facility] Work Phone: Start: 09-18-2006 Comprehensive metabolic panel METABOLIC PANEL, COMPREHENSIVE (21794) [facility] Work Phone: [facility] Work [facility]: [facility] Work [facility]: [facility] Work Phone: [facility] Work Phone: [facility] Work Phone: [facility] Work Phone[facility] Work Phone: [facility] Work Phone: [facility] Work Phone[facility] Work Phone: [facility] Work Phone: [facility] Work Phone: [facility] Work Phone: [facility] Work Phone: [facility] Work Phone: [facility] Work Phone[facility] Work Phone: [facility] Work Phone[facility] Work Phone: [facility] Work Phone: [facility] Work Phone: Immunizations Immunization Date Immunization Notes Care Provider [facility] 07-06-2009 influenza, seasonal, injectable Jeanine Rock [facility] Work Phone: Payers Date Payer Category Payer Unknown 2024 Self-pay [id number] 2024 Unknown [id number] 2016 Unknown [id number] 1960 Unknown [id number] 2.16.8 [id number] Unknown [id number] 2.16.8 [id number] Unknown [id number] 2.16.8 [id number] Unknown [id number] 2.16.8 [id number] Unknown [id number] 2.16.8 [id number] Unknown [id number] 2.16.8 [id number] Unknown [id number] 2.16.8 [id number] Unknown [id number] 2.16.8 [id number] Unknown [id number] 2.16.8 [id number] Unknown [id number] 2.16.8 [id number] Unknown [id number] 2.16.8 [id number] Unknown [id number] 2.16.8 [id number] Social History Date Type Detail Facility Alcohol Use Alcohol Use [facility] Work Phone: Comment on above: 2 QD 3-4 QD 1-2 a year Tobacco use: Tobacco use: [facility] Work Phone: Tobacco use: Tobacco use: [facility]; [facility] Work Phone: Start: 04-17-2023 Tobacco smoking status HIIS Unknown if ever smoked [facility] Start: 1960 Sex Assigned At Male [facility] Tobacco smoking status [facility] Start: 10-02-2019 Sex Male (finding) [facility] Start: 07-15-2024 Tobacco smoking status NHIS Never smoked tobacco (finding) [facility] Functional Status Date Assessment Result Facility 11-04-2024 Functional Status Home Living Ad ditional Information Objective: Cardiovascular screen: BP: 170/90 HR: 77 BPM O2 sat: 96% Gait: Ambulates with slight antalgic gait with mild limitation in terminal knee extension during terminal swing phase. Weight bearing status: no current restrictions Observation in standing: Genu Valgum mild Effusion: min to no observed or palpable effusion Functional Strength: ASLR: 0-1 Palpation: Tender to Palpation medial joint line and medial patella region. Special Tests: Varus Test:- , Valgus Test:- , Nunu s: - , Anterior Drawer:- , Posterior Drawer:- , Franchesca s: -, Medial joint line tendereness: +R [facility] 11-03-2020 LP-IR Score LP-IR Score 65 [facility]; [facility] Work Phone: Comment on above: INSULIN RESISTANCE MARKER <--Insulin Sen sitive Insulin Resistant--> Percentile in Reference PopulationInsulin Resistance ScoreLP-IR Score Low 25th 50th 75th High <27 27 45 63 >63LP-IR Score is inaccurate if patient is non-fasting. .The LP-IR score is a laboratory developed index that has beenassociated with insulin resistance and diabetes risk and should beused as one component of a physician's clinical assessment. Test(s) 182370-DGD-B ; 749085-WBV-R; 238649-Pclciparfeasb; 076479-Nulcmttoivl, Total; 388642-SJR-C (Total); 710986-Wjspz LDL-P; 284910-IVT Size; 419450-XN-WV Scorewas developed and its performance characteristics determinedby [facility]. It has not been cleared or approved by the Foodand Drug Administration.PATIENT WAS FASTINGPERFORMED BY: BN [facility] [id number] [facility] [id number] BY: CB [facility] [id number] [facility] [id number] Clinical Notes 02-12-2025 to 06-21-2025 Note Date & Type Note Facility 06-21-2025 Radiology Diagnostic study note [facility] Imaging Services [address] [place] [address] [id number] Knee 4 or More Views MR#: [id number] Acct: [id number] Name: MIGUELANGEL GALLAGHER Rep #: [id number] : 1960 M 65 From: Suzie Red MD PCP: Dr. Rich Sams MD Status: REG CLI Study:Knee 4 or More Views Date of Exam: 06/21/25 Exam# [id number] Ordering Dr: Rich Sams MD EXAM: XR Left Knee Complete, 4 or More Views CLINICAL INDICATION: BILATERAL KNEE OSTEOARTHRITIS/KNEE PAIN TECHNIQUE: Four or more views of the left knee. COMPARISON: No relevant prior studies available. FINDINGS: BONES/JOINTS: Unremarkable. No acute fracture. No dislocation. SOFT TISSUES: Unremarkable. RAD/Knee 4 or More Views IMPRESSION: No acute fracture. Reading [facility] CC: Dr. Rich Sams MD ~ Well Flow Operator: Signed [facility] 06-21-2025 Radiology Diagnostic study note [facility] Imaging Services [address] [place] [address] Knee 4 or More Views MR#: [id number] Acct: [id number] Name: MIGUELANGEL GALLAGHER Rep #: [id number] : 1960 M 65 From: Linette Steinberg MD PCP: Dr. Rich Sams MD Status: REG CLI Study:Knee 4 or More Views Date of Exam: 06/21/25 Exam# [id number] Ordering Dr: Rich Sams MD PROCEDURE: KNEE 4 OR MORE VIEWS 06/21/2025 REASON FOR EXAM: RIGHT KNEE MEDIAL PAIN/SWELLING TECHNIQUE: Procedure Code: RADKN Modality: DX Procedure: KNEE 4 OR MORE VIEWS Laterality: Right COMPARISON: Contralateral knee FINDINGS: Bones: No displaced fracture. Subchondral lucency with minimal depression is seen at the articular surface of the medial femoral condyle. No fragmentation is seen. Joints: Tricompartment degenerative change with mild marginal spurring. Enthesopathy along the dorsal aspect of the patella and a large enthesophyte is seen at the tibial tuberosity. Effusion: Small suprapatellar joint effusion. Soft tissues: Soft tissues are unremarkable. RAD/Knee 4 or More Views IMPRESSION: 1. Osteochondral injury of the medial femoral condyle at the articular surface. Correlate with medial pain. Consider MRI if appropriate. Reading [id number] CC: Dr. Rich Sams MD ~ Well Flow Operator: Signed [facility] 06-21-2025 Evaluation note Diagnosis Onset Date Resolution Acute medial meniscal injury of right knee acute June 212024 7:56am Osteoarthritis of knees, bilateral acute June 21 7:56am Osteochondral defect of femoral condyle acute June 21 7:56am Right knee pain acute June 21, 2025 7:56am Hypertension chronic June 7:56am [place] [facility] Work Phone: 1(814) 108-673409-02-2025 Evaluation note* Diagnosis Onset Date Resolution Status Admit Date Acute medial meniscal injury of right knee acute June 21 7:56am Osteoarthritis of knees, bilateral acute June 21 7:56am Osteochondral defect of femoral condyle acute June 21 7:56am Right knee pain acute June 21, 2025 7:56am Hypertension chronic June 7:56am Osteochondral defect of femoral condyle acute June 27 2:54pm Other instability, right knee acute June 27, 2025 2:54pm Right knee DJD acute June 27, 2025 2:54pm [facility] Work Phone: 1(370) 950-340109-02-2025 [facility] [address] [place] [address] OFFICE VISIT Date of Service: 06/21/25 MR#: [id number] Acct: [id number] Name: MIGUELANGEL GALLAGHER Rep #: [id number] : 1960 Provider: Dr. Mercy Sams MD Age/Sex: 65/M Location: [facility] Status: Signed Intake Vital Signs 02/12/25 08:30 06/21/25 08:06 Height 5 ft 10 in 5 ft 10 in Weight: 247 lb 8 oz 245 lb 4 oz BMI 35.5 35.2 BP 158/102 H 201/104 H Blood Pressure Location Lt brachial Position Sitting Sitting Respiration 16 Pulse 71 72 Pulse Source Monitor Temp 97.9 F 97.8 F Temp Source Oral Temporal Pulse Oximetry (%) 97 97 Oxygen Delivery Method room air room air Intake Visit Reasons: RT Knee Pain Chief Complaint: RT Knee Pain Trashman Required: No Accompanied by: Self Is patient in pain?: Yes (Right knee pain) Pain scale (1-10): 2 Allergies aspirin Adverse Reaction (Verified 06/21/25 08:00) Swelling Medications ?Medication ?Instructions ?Recorded ?Confirmed ?Type cholecalciferol (vitamin D3) 10 10 mcg PO QDAY 4 06/21/25 History mcg (400 unit) capsule oxymetazoline 0.05 % nasal spray 2 spray intranasal Q1 2H PRN 02/12/25 06/21/25 History (12 Hour Nasal [place]) fenofibrate nanocrystallized 145 145 mg PO DAILY #90 t abs 06/15/25 06/21/25 Rx mg tablet simvastatin 20 mg tablet 20 mg PO QHS #90 tabs 06/21/25 Rx hydrochlorothiazide 25 mg tablet 12.5 mg (1/2 x 25 mg) PO QAM #30 06/21/25 06/21/25 Rx tabs losartan 50 mg tablet 100 mg (2 x 50 mg) PO DAILY #90 06/21/25 06/21/25 Rx tabs PFSH Medical History (Updated 06/21/25 @ 08:[address] Rich Sams MD) Osteoarthritis of knees, bilateral Sprain of medial collateral ligament of knee Acute medial meniscal injury of right knee Right knee pain Lack of libido Thyroid nodule Thyroid enlargement History of fracture History of pneumonia Hypertriglyceridemia Hyperlipemia Hypertension Family History Father Heart disease Myocardial infarction, Onset Age: 39 CVA (cerebral vascular accident) Grandfather Heart disease CVA (cerebral vascular accident) Social History Smoking Status: Never smoker Tobacco: How many years used: 4 alcohol intake: current alcohol intake frequency: a few times a week substance use type: does not use and other details: thc, edibles what type of physical activity do you participate in: none HPI HPI Chief Complaint: RT Knee Pain Details: MIGUELANGEL GALLAGHER, is a 65 M who presents to the office today for an acute care follow-up visit. He has ongoing right knee pain. See my previous note from October. At that point I suspect that he probablyhad right medial meniscal inflammation, injury, perhaps sprain medial collateral ligament. We did physical therapy at that point in time and Manny. He felt somewhat better with the exercises theywere doing however since then he has had ongoing periodsof time where this has flared up. It is always seems to involve the medial aspect of the right knee. He has been wearing a knee brace if he is outdoors, doing things like weed eating etc. He does a fair amount of kneeling and does wear kneepads at work. However certain activities seem to flare this up, sometimes even hard to say exactly whatit is he feels that it does flare but itmight be bothersome for a week at a time. He has been usingintermittent Aleve [id number] 1 or 2 tabs daily depending on how bothersome things are. He does also stand a lot on his feet at work. Depends on what exactly he is doing. 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 Some days in the shop he is on his feet quite a bit, other days if doing more site-work or installation, a lot of kneeling. However he deniesany recent episodes of acute trauma. There is no remote history of knee injury. Review of systems per chart. Physical exam. Vital signs on chart. Exam today is focused. ACL, PCL, LCL, MCL stable bilateral knees. There is probably some degree of small effusion right knee. There is most discomfort right knee,medial compartment with medialcompartment stress and knee extension. Joint space narrowing, bilateral knees. ROS Const Constitutional: Positive for weakness (Right knee ); No body ache, chills, excessive sweating, fatigue, fever(s), frequent falls, headache(s), snoring or change in appetite Eyes Eyes: No blurry vision, change in vision, eye pain or Light sensitivity ENT ENT: No abnormal hearing, ear or mastoid pain, tinnitus, nasal congestion, headache(s), neck pain or sore throat Resp Respiratory: No cough, shortness of breath, snoring or wheezing Cardio Cardiology: No chest pain at rest, chest pain with exertion, excessive sweating,dyspnea on exertion, lightheadedness, orthopnea or palpitations Gastro GI: No abdominal pain, change in bowel habits, constipation, cramping, diarrhea,nausea/dyspepsia orvomiting Genitourinary Male: No burning urination, painful urination, urinary incontinence or urinary frequency Musc Musculoskeletal: Positive for abnormal gait, back pain, limited range of motion and other (Right knee pain ); No joint pain, muscle weakness, neck pain or numbness Skin Skin: No dry skin, redness, lesions, itchy eyes, rash or wounds Neuro Neurology: Positive for abnormal gait and weakness (Right knee ); No abnormal hearing, frequent falls, headache(s), memory loss or numbness Psych Psychiatric: No anxiety, No change in appetite, No depression, No memory loss and No Thoughts of harming yourself/Others Endo Endocrine: No cold intolerance, excessive sweating, fatigue, flushing, heat intolerance, increased thirst/drinking or increased hunger Aller/Imm Allergy/Immunologic: No itchy eyes, seasonal allergy symptoms, hives or wheezing Gentry/Lymp Hematologic/Lymphatic: No easy bleeding or easy bruising Coding Level of Care Code Off vis,est,level 3 Diagnoses Osteoarthritis of knees, bilateral M17.0 Acute medial meniscal injury of right knee S83.8X1A Right knee pain M25.561 Hypertension I10 Time Spent (min) 30 Assessment and Plan Assessment and Plan (1) Osteoarthritis of knees, bilateral: Status: Acute (2) Acute medial meniscal injury of right knee: Status: Acute (3) Right knee pain: Status: Acute (4) Hypertension: Status: Chronic Orders: Orders Knee 4 or More Views Today M17.0 - Bilateral primary osteoarthritis of knee, M25.561 - Pain in right knee, S83.8X1A - Sprain of other specified parts of right knee, initial encounter Referrals Orthopedics M25.561 - Pain in right knee Medications: New hydrochlorothiazide 12.5 mg (1/2 x 25 mg) PO QAM 30 tabs 0RF Changed From losartan 50 mg PO DAILY 90 tabs 3RF To losartan 100 mg (2 x 50 mg) PO DAILY 90 tabs 3RF Plan Details Additional Comments: Patient presented today for an acute care visit as above. Bilateral knee osteoarthritis. Bilateral standing films will be obtained. In the right knee, additional views as directed, for further evaluation. I suspect he has underlying knee osteoarthritis, probably meniscal injury right knee as well. A rrange orthopedic outpatient follow-up. He will continue as needed ruben Power and await x-rays, orthopedic evaluation. His blood pressure is elevated here in the office today. He was previously on losartan?HCTZ, however due to insurance's, eventually those out and he was on losartan 50 and HCTZ 25 mg daily. His blood pressures were doing much better and he was having nighttime urination issues which had of improved since he stopped taking HCTZ a while back. However today his blood pressure is elevated. He notes his blood pressures have been more elevated as of recent as we discussed. Asymptomatic. He will increase the losartan to 100 mg. He just got a refill on the 50s and h ewill use those first. In addition I will send in a short prescription for HCTZ 25 mg tablets and he is to take 1/2 tablet each morning. He will update blood pressures in 2 weeks. If this improves his control and is satisfactory then I will send a prescription for losartan?HCTZ 100?12.5. He is in agreement with plan. 30-minute visit. 06/21/25 0918 r > Date _ Rich Sams MD Cosigner Signature: Date (if applicable) CC: ~ [facility]09-02-2025 Progress note Author Rich Sams [facility] Services Note Date/Time June 21, 2025 9:18am [place] [facility] [address] [place] [address] OFFICE VISIT Date of Service: 06/21/25 MR#: [id number] Acct: [id number] Name: MIGUELANGEL GALLAGHER Rep #: [id number] : 1960 Provider: Dr. Mercy Sams MD Age/Sex: 65/M [place] [facility] Status: Signed Intake Vital Signs 02/12/25 08:30 06/21/25 08:06 Height 5 ft 10 in 5 ft 10 in Weight: 247 lb 8 oz 245 lb 4 oz BMI 35.5 35.2 BP 158/102 H 201/104 H Blood Pressure Location Lt brachial Position Sitting Sitting Respiration 16 Pulse 71 72 Pulse Source Monitor Temp 97.9 F 97.8 F Temp Source Oral Temporal Pulse Oximetry (%) 97 97 Oxygen Delivery Method room air room air Intake Visit Reasons: RT Knee Pain Chief Complaint: RT Knee Pain Trashman Required: No Accompanied by: Self Is patient in pain?: Yes (Right knee pain) Pain scale (1-10): 2 Allergies aspirin Adverse Reaction (Verified 06/21/25 08:00) Swelling Medications ?Medication ?Instructions ?Recorded ?Confirmed ?Type cholecalciferol (vitamin D3) 10 10 mcg PO QDAY 4 06/21/25 History mcg (400 unit) capsule oxymetazoline 0.05 % nasal spray 2 spray intranasal Q1 2H PRN 02/12/25 06/21/25 History (12 Hour Nasal [place]) fenofibrate nanocrystallized 145 145 mg PO DAILY #90 t abs 06/15/25 06/21/25 Rx mg tablet simvastatin 20 mg tablet 20 mg PO QHS #90 tabs 06/21/25 Rx hydrochlorothiazide 25 mg tablet 12.5 mg (1/2 x 25 mg) PO QAM #30 06/21/25 06/21/25 Rx tabs losartan 50 mg tablet 100 mg (2 x 50 mg) PO DAILY #90 06/21/25 06/21/25 Rx tabs PFSH Medical History (Updated 06/21/25 @ 08:[address] Rich Sams MD) Osteoarthritis of knees, bilateral Sprain of medial collateral ligament of knee Acute medial meniscal injury of right knee Right knee pain Lack of libido Thyroid nodule Thyroid enlargement History of fracture History of pneumonia Hypertriglyceridemia Hyperlipemia Hypertension Family History Father Heart disease Myocardial infarction, Onset Age: 39 CVA (cerebral vascular accident) Grandfather Heart disease CVA (cerebral vascular accident) Social History Smoking Status: Never smoker Tobacco: How many years used: 4 alcohol intake: current alcohol intake frequency: a few times a week substance use type: does not use and other details: thc, edibles what type of physical activity do you participate in: none HPI HPI Chief Complaint: RT Knee Pain Details: MIGUELANGEL GALLAGHER, is a 65 M who presents to the office today for an acute care follow-up visit. He has ongoing right knee pain. See my previous note from October. At that point I suspect that he probably had right medial meniscal inflammation, injury, perhaps sprain medial collateral ligament. We did physical therapy at that point in time and Manny. He felt somewhat better with the exercises they were doing however since then he has had ongoing periodsof time where this has flared up. It is always seems to involve the medial aspect of the right knee. He has been wearing a knee brace if he is outdoors, doing things like weed eating etc. He does a fair amount of kneeling and does wear kneepads at work. However certain activities seem to flare this up, sometimes even hard to say exactly what it is he feels that it does flare but itmight be bothersome for a week at a time. He has been using intermittent Aleve [id number] 1 or 2 tabs daily depending on how bothersome things are. He does also stand a lot on his feet at work. Depends on what exactly he is doing. 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 Some days in the shop he is on his feet quite a bit, other days if doing more site- work or installation, a lot of kneeling. However he denies any recent episodes of acute trauma. There is no remote history of knee injury. Review of systems per chart. Physical exam. Vital signs on chart. Exam today is focused. ACL, PCL, LCL, MCL stable bilateral knees. There is probably some degree of small effusion right knee. There is most discomfort right knee, medial compartment with medialcompartment stress and knee extension. Joint space narrowing, bilateral knees. ROS Const Constitutional: Positive for weakness (Right knee ); No body ache, chills, excessive sweating, fatigue, fever(s), frequent falls, headache(s), snoring or change in appetite Eyes Eyes: No blurry vision, change in vision, eye pain or Light sensitivity ENT ENT: No abnormal hearing, ear or mastoid pain, tinnitus, nasal congestion, headache(s), neck pain or sore throat Resp Respiratory: No cough, shortness of breath, snoring or wheezing Cardio Cardiology: No chest pain at rest, chest pain with exertion, excessive sweating,dyspnea on exertion, lightheadedness, orthopnea or palpitations Gastro GI: No abdominal pain, change in bowel habits, constipation, cramping, diarrhea,nausea/dyspepsia or vomiting Genitourinary Male: No burning urination, painful urination, urinary incontinence or urinary frequency Musc Musculoskeletal: Positive for abnormal gait, back pain, limited range of motion and other (Right knee pain ); No joint pain, muscle weakness, neck pain or numbness Skin Skin: No dry skin, redness, lesions, itchy eyes, rash or wounds Neuro Neurology: Positive for abnormal gait and weakness (Right knee ); No abnormal hearing, frequent falls, headache(s), memory loss or numbness Psych Psychiatric: No anxiety, No change in appetite, No depression, No memory loss and No Thoughts of harming yourself/Others Endo Endocrine: No cold intolerance, excessive sweating, fatigue, flushing, heat intolerance, increased thirst/drinking or increased hunger Aller/Imm Allergy/Immunologic: No itchy eyes, seasonal allergy symptoms, hives or wheezing Gentry/Lymp Hematologic/Lymphatic: No easy bleeding or easy bruising Coding Level of Care Code Off vis,est,level 3 Diagnoses Osteoarthritis of knees, bilateral M17.0 Acute medial meniscal injury of right knee S83.8X1A Right knee pain M25.561 Hypertension I10 Time Spent (min) 30 Assessment and Plan Assessment and Plan (1) Osteoarthritis of knees, bilateral: Status: Acute (2) Acute medial meniscal injury of right knee: Status: Acute (3) Right knee pain: Status: Acute (4) Hypertension: Status: Chronic Orders: Orders Knee 4 or More Views Today M17.0 - Bilateral primary osteoarthritis of knee, M25.561 - Pain in right knee, S83.8X1A - Sprain of other specified parts of right knee, initial encounter Referrals Orthopedics M25.561 - Pain in right knee Medications: New hydrochlorothiazide 12.5 mg (1/2 x 25 mg) PO QAM 30 tabs 0RF Changed From losartan 50 mg PO DAILY 90 tabs 3RF To losartan 100 mg (2 x 50 mg) PO DAILY 90 tabs 3RF Plan Details Additional Comments: Patient presented today for an acute care visit as above. Bilateral knee osteoarthritis. Bilateral standing films will be obtained. In the right knee, additional views as directed, for further evaluation. I suspect he has underlying knee osteoarthritis, probably meniscal injury right knee as well. Arrange orthopedic outpatient follow-up. He will continue as needed ruben Power and await x- rays, orthopedic evaluation. His blood pressure is elevated here in the office today. He was previously on losartan?HCTZ, however due to insurance's, eventually those out and he was on losartan 50 and HCTZ 25 mg daily. His blood pressures were doing much better and he was having nighttime urination issues which had of improved since he stopped taking HCTZ a while back. However today his blood pressure is elevated. He notes his blood pressures have been more elevated as of recent as we discussed. Asymptomatic. He will increase the losartan to 100 mg. He just got a refill on the 50s and hewill use those first. In addition I will send in a short prescription for HCTZ 25 mg tablets and he is to take 1/2 tablet each morning. He will update blood pressures in 2 weeks. If this improves his control and is satisfactory then I will send a prescription for losartan?HCTZ 100?12.5. He is in agreement with plan. 30-minute visit. 06/21/[id number] <Electronically signed by Rich jiménez MD> Date _ Rich Sams MD Cosigner Signature: Date (if applicable) CC: ~ [place] [employer] Work Phone: [phone] Evaluation note* Diagnosis Onset Date Resolution Status Admit Date Sinusitis chronic, sphenoidal chroni c February 12, 2025 8:22am [place] [employer] Work Phone: Evaluation + Plan note No data available for this section [facility] Evaluation note* Diagnosis Onset Date Resolution Status Hyperlipemia acute Hypertriglyceridemia acute Thyroid enlargement acute Thyroid nodule acute Hypertension chronic Encounter for wellness examination in adult noneactive [facility] Work Phone: Evaluation note* Diagnosis Onset Date Resolution Status Admit Date Acute medial meniscal injury of right knee acute June 21, 025 7:56am Osteoarthritis of knees, bilateral acute June 21 7:56am Right knee pain acute June 21, 2025 7:56am Hypertension chronic June 7:56am [place] [employer] Work Phone: Hospital Discharge instructions No data available for this section [facility] Hospital Discharge instructionsAmbulatory Orders* Orthopedics Location: None Selected [facility] Work Phone: Instructions* Name Dates Details Patient Instructions Indication:Non-smoker Start:27-Sep-2020 Instruction Type:Provider Instructions for Treatment How to Access Health Informa tion Online using Patient Portal and 3rd [employer] Apps Indication:Non-smoker Start:27-Sep-2020 Instruction Type:Patient Education How to access health informa tion online Indication:Non-smoker Start:29-Sep-2019 Instruction Type:Patient Education How to access health informa tion online - Detail Indication:Non-smoker Start:29-Sep-2019 Instruction Type:Patient Education Patient Instructions Indication:Non-smoker Start:29-Sep-2019 Instruction Type:Provider Instructions for Treatment How to access health informa tion online Indication:BMI 34.0-34.9,adult Start:22-May-2017 Instruction Type:Patient Education How to access health informa tion online - Detail Indication:BMI 34.0-34.9,adult Start:22-May-2017 Instruction Type:Patient Education Patient Instructions Indication:Fever and chills Start:22-May-2017 Instruction Type:Provider Instructions for Treatment How to access health informa tion online Indication:BMI 35.0-35.9,adult Start:12-May-2017 Instruction Type:Patient Education How to access health informa tion online - Detail Indication:BMI 35.0-35.9,adult Start:12-May-2017 Instruction Type:Patient Education Patient Instructions Indication:BMI 35.0-35.9,adult Start:12-May-2017 Instruction Type:Provider Instructions for Treatment How to access health informa tion online Indication:Acute maxillary sinusitis, recurrence not specified Start:30-Jan-2016 Instruction Type:Patient Education How to access health informa tion online - Detail Indication:Acute maxillary sinusitis, recurrence not specified Start:30-Jan-2016 Instruction Type:Patient Education Patient Instructions Indication:Acute maxillary sinusitis, recurrence not specified Start:30-Jan-2016 Instruction Type:Provider Instructions for Treatment How to access health informa tion online Indication:Acute pharyngitis Start:26-Jan-2016 Instruction Type:Patient Education How to access health informa tion online - Detail Indication:Acute pharyngitis Start:26-Jan-2016 Instruction Type:Patient Education Patient Instructions Indication:Acute pharyngitis Start:26-Jan-2016 Instruction Type:Provider Instructions for Treatment How to access health informa tion online Indication:Annual physical exam Start:08-Nov-2015 Instruction Type:Patient Education How to access health informa tion online - Detail Indication:Annual physical exam Start:08-Nov-2015 Instruction Type:Patient Education Patient Instructions Indication:Annual physical exam Start:08-Nov-2015 Instruction Type:Provider Instructions for Treatment How to access health informa tion online Indication:Abnormal glucose tolerance test Start:04-Oct-2014 Instruction Type:Patient Education How to access health informa tion online - Detail Indication:Abnormal glucose tolerance test Start:04-Oct-2014 Instruction Type:Patient Education Patient Instructions Indication:Abnormal glucose tolerance test Start:04-Oct-2014 Instruction Type:Provider Instructions for Treatment How to access health informa tion online Indication:Abnormal glucose tolerance test Start:20-May-2014 Instruction Type:Patient Education How to access health informa tion online - Detail Indication:Abnormal glucose tolerance test Start:20-May-2014 Instruction Type:Patient Education Patient Instructions Indication:Abnormal glucose tolerance test Start:20-May-2014 Instruction Type:Provider Instructions for Treatment Patient Instructions Indication:Bronchitis, acute Start:28-Jan-2014 Instruction Type:Provider Instructions for Treatment Patient Instructions: wt los s and exercise Indication:Benign essential hypertension Start:24-Jun-2012 Instruction Type:Provider Instructions for Treatment [facility] Work Phone: Instructions* Name Dates Details Patient Instructions Indication:Non-smoker Start:27-Sep-2020 Instruction Type:Provider Instructions for Treatment How to Access Health Informa tion Online using Patient Portal and [employer] Libertarian Apps Indication:Non-smoker Start:27-Sep-2020 Instruction Type:Patient Education How to access health informa tion online Indication:Non-smoker Start:29-Sep-2019 Instruction Type:Patient Education How to access health informa tion online - Detail Indication:Non-smoker Start:29-Sep-2019 Instruction Type:Patient Education Patient Instructions Indication:Non-smoker Start:29-Sep-2019 Instruction Type:Provider Instructions for Treatment How to access health informa tion online Indication:BMI 34.0-34.9,adult Start:22-May-2017 Instruction Type:Patient Education How to access health informa tion online - Detail Indication:BMI 34.0-34.9,adult Start:22-May-2017 Instruction Type:Patient Education Patient Instructions Indication:Fever and chills Start:22-May-2017 Instruction Type:Provider Instructions for Treatment How to access health informa tion online Indication:BMI 35.0-35.9,adult Start:12-May-2017 Instruction Type:Patient Education How to access health informa tion online - Detail Indication:BMI 35.0-35.9,adult Start:12-May-2017 Instruction Type:Patient Education Patient Instructions Indication:BMI 35.0-35.9,adult Start:12-May-2017 Instruction Type:Provider Instructions for Treatment How to access health informa tion online Indication:Acute maxillary sinusitis, recurrence not specified Start:30-Jan-2016 Instruction Type:Patient Education How to access health informa tion online - Detail Indication:Acute maxillary sinusitis, recurrence not specified Start:30-Jan-2016 Instruction Type:Patient Education Patient Instructions Indication:Acute maxillary sinusitis, recurrence not specified Start:30-Jan-2016 Instruction Type:Provider Instructions for Treatment How to access health informa tion online Indication:Acute pharyngitis Start:26-Jan-2016 Instruction Type:Patient Education How to access health informa tion online - Detail Indication:Acute pharyngitis Start:26-Jan-2016 Instruction Type:Patient Education Patient Instructions Indication:Acute pharyngitis Start:26-Jan-2016 Instruction Type:Provider Instructions for Treatment How to access health informa tion online Indication:Annual physical exam Start:08-Nov-2015 Instruction Type:Patient Education How to access health informa tion online - Detail Indication:Annual physical exam Start:08-Nov-2015 Instruction Type:Patient Education Patient Instructions Indication:Annual physical exam Start:08-Nov-2015 Instruction Type:Provider Instructions for Treatment How to access health informa tion online Indication:Abnormal glucose tolerance test Start:04-Oct-2014 Instruction Type:Patient Education How to access health informa tion online - Detail Indication:Abnormal glucose tolerance test Start:04-Oct-2014 Instruction Type:Patient Education Patient Instructions Indication:Abnormal glucose tolerance test Start:04-Oct-2014 Instruction Type:Provider Instructions for Treatment How to access health informa tion online Indication:Abnormal glucose tolerance test Start:20-May-2014 Instruction Type:Patient Education How to access health informa tion online - Detail Indication:Abnormal glucose tolerance test Start:20-May-2014 Instruction Type:Patient Education Patient Instructions Indication:Abnormal glucose tolerance test Start:20-May-2014 Instruction Type:Provider Instructions for Treatment Patient Instructions Indication:Bronchitis, acute Start:28-Jan-2014 Instruction Type:Provider Instructions for Treatment Patient Instructions: wt los s and exercise Indication:Benign essential hypertension Start:24-Jun-2012 Instruction Type:Provider Instructions for Treatment [facility] Work Phone: progress note No data available for this section [facility] Reason for referral (narrative)No reason for referral [facility] available[facility] Summary Purpose Family History No Family History Records FoundUnknown Family Member Name Dates Details Family Members In General Comments:Heart/lung, HBP, hi gh cholesterol Status:Active Unknown Family Member Name Dates Details Family Members In General Comments:Heart/lung, HBP, hi gh cholesterol Status:Active Unknown Family Member Name Dates Details Family Members In General Comments:Heart/lung, HBP, hi gh cholesterol Status:Active Unknown Family Member Name Dates Details Family Members In General Comments:Heart/lung, HBP, hi gh cholesterol Status:Active Unknown Family Member Name Dates Details Family Members In General Comments:Heart/lung, HBP, hi gh cholesterol Status:Active Unknown Family Member Name Dates Details Family Members In General Comments:Heart/lung, HBP, hi gh cholesterol Status:Active Relationship Condition Age at Onset Recorded Date/T thony father Cardiac disease Unknown Myocardial infarction 41 Cerebrovascular accident (CVA) Unknown grandfather Cardiac disease Unknown Advance Directives No Advanced Directives Records Found Advance Directive Response Recorded Date/ Time Living Will No May 14, 2017 11:01pm Power of Accreditation Manager No May 14 7 11:01pm Instructions Name Dates Details How to access health informa tion online Indication:Non-smoker Start:29-Sep-2019 Instruction Type:Patient Education How to access health informa tion online - Detail Indication:Non-smoker Start:29-Sep-2019 Instruction Type:Patient Education Patient Instructions Indication:Non-smoker Start:29-Sep-2019 Instruction Type:Provider Instructions for Treatment How to access health informa tion online Indication:BMI 34.0-34.9,adult Start:22-May-2017 Instruction Type:Patient Education How to access health informa tion online - Detail Indication:BMI 34.0-34.9,adult Start:22-May-2017 Instruction Type:Patient Education Patient Instructions Indication:Fever and chills Start:22-May-2017 Instruction Type:Provider Instructions for Treatment How to access health informa tion online Indication:BMI 35.0-35.9,adult Start:12-May-2017 Instruction Type:Patient Education How to access health informa tion online - Detail Indication:BMI 35.0-35.9,adult Start:12-May-2017 Instruction Type:Patient Education Patient Instructions Indication:BMI 35.0-35.9,adult Start:12-May-2017 Instruction Type:Provider Instructions for Treatment How to access health informa tion online Indication:Acute maxillary sinusitis, recurrence not specified Start:30-Jan-2016 Instruction Type:Patient Education How to access health informa tion online - Detail Indication:Acute maxillary sinusitis, recurrence not specified Start:30-Jan-2016 Instruction Type:Patient Education Patient Instructions Indication:Acute maxillary sinusitis, recurrence not specified Start:30-Jan-2016 Instruction Type:Provider Instructions for Treatment How to access health informa tion online Indication:Acute pharyngitis Start:26-Jan-2016 Instruction Type:Patient Education How to access health informa tion online - Detail Indication:Acute pharyngitis Start:26-Jan-2016 Instruction Type:Patient Education Patient Instructions Indication:Acute pharyngitis Start:26-Jan-2016 Instruction Type:Provider Instructions for Treatment How to access health informa tion online Indication:Annual physical exam Start:08-Nov-2015 Instruction Type:Patient Education How to access health informa tion online - Detail Indication:Annual physical exam Start:08-Nov-2015 Instruction Type:Patient Education Patient Instructions Indication:Annual physical exam Start:08-Nov-2015 Instruction Type:Provider Instructions for Treatment How to access health informa tion online Indication:Abnormal glucose tolerance test Start:04-Oct-2014 Instruction Type:Patient Education How to access health informa tion online - Detail Indication:Abnormal glucose tolerance test Start:04-Oct-2014 Instruction Type:Patient Education Patient Instructions Indication:Abnormal glucose tolerance test Start:04-Oct-2014 Instruction Type:Provider Instructions for Treatment How to access health informa tion online Indication:Abnormal glucose tolerance test Start:20-May-2014 Instruction Type:Patient Education How to access health informa tion online - Detail Indication:Abnormal glucose tolerance test Start:20-May-2014 Instruction Type:Patient Education Patient Instructions Indication:Abnormal glucose tolerance test Start:20-May-2014 Instruction Type:Provider Instructions for Treatment Patient Instructions Indication:Bronchitis, acute Start:28-Jan-2014 Instruction Type:Provider Instructions for Treatment Patient Instructions: wt los s and exercise Indication:Benign essential hypertension Start:24-Jun-2012 Instruction Type:Provider Instructions for Treatment Name Dates Details How to access health informa tion online Indication:Non-smoker Start:29-Sep-2019 Instruction Type:Patient Education How to access health informa tion online - Detail Indication:Non-smoker Start:29-Sep-2019 Instruction Type:Patient Education Patient Instructions Indication:Non-smoker Start:29-Sep-2019 Instruction Type:Provider Instructions for Treatment How to access health informa tion online Indication:BMI 34.0-34.9,adult Start:22-May-2017 Instruction Type:Patient Education How to access health informa tion online - Detail Indication:BMI 34.0-34.9,adult Start:22-May-2017 Instruction Type:Patient Education Patient Instructions Indication:Fever and chills Start:22-May-2017 Instruction Type:Provider Instructions for Treatment How to access health informa tion online Indication:BMI 35.0-35.9,adult Start:12-May-2017 Instruction Type:Patient Education How to access health informa tion online - Detail Indication:BMI 35.0-35.9,adult Start:12-May-2017 Instruction Type:Patient Education Patient Instructions Indication:BMI 35.0-35.9,adult Start:12-May-2017 Instruction Type:Provider Instructions for Treatment How to access health informa tion online Indication:Acute maxillary sinusitis, recurrence not specified Start:30-Jan-2016 Instruction Type:Patient Education How to access health informa tion online - Detail Indication:Acute maxillary sinusitis, recurrence not specified Start:30-Jan-2016 Instruction Type:Patient Education Patient Instructions Indication:Acute maxillary sinusitis, recurrence not specified Start:30-Jan-2016 Instruction Type:Provider Instructions for Treatment How to access health informa tion online Indication:Acute pharyngitis Start:26-Jan-2016 Instruction Type:Patient Education How to access health informa tion online - Detail Indication:Acute pharyngitis Start:26-Jan-2016 Instruction Type:Patient Education Patient Instructions Indication:Acute pharyngitis Start:26-Jan-2016 Instruction Type:Provider Instructions for Treatment How to access health informa tion online Indication:Annual physical exam Start:08-Nov-2015 Instruction Type:Patient Education How to access health informa tion online - Detail Indication:Annual physical exam Start:08-Nov-2015 Instruction Type:Patient Education Patient Instructions Indication:Annual physical exam Start:08-Nov-2015 Instruction Type:Provider Instructions for Treatment How to access health informa tion online Indication:Abnormal glucose tolerance test Start:04-Oct-2014 Instruction Type:Patient Education How to access health informa tion online - Detail Indication:Abnormal glucose tolerance test Start:04-Oct-2014 Instruction Type:Patient Education Patient Instructions Indication:Abnormal glucose tolerance test Start:04-Oct-2014 Instruction Type:Provider Instructions for Treatment How to access health informa tion online Indication:Abnormal glucose tolerance test Start:20-May-2014 Instruction Type:Patient Education How to access health informa tion online - Detail Indication:Abnormal glucose tolerance test Start:20-May-2014 Instruction Type:Patient Education Patient Instructions Indication:Abnormal glucose tolerance test Start:20-May-2014 Instruction Type:Provider Instructions for Treatment Patient Instructions Indication:Bronchitis, acute Start:28-Jan-2014 Instruction Type:Provider Instructions for Treatment Patient Instructions: wt los s and exercise Indication:Benign essential hypertension Start:24-Jun-2012 Instruction Type:Provider Instructions for Treatment Name Dates Details Patient Instructions Indication:Non-smoker Start:27-Sep-2020 Instruction Type:Provider Instructions for Treatment How to Access Health Informa tion Online using Patient Portal and [employer]rd [employer] Apps Indication:Non-smoker Start:27-Sep-2020 Instruction Type:Patient Education How to access health informa tion online Indication:Non-smoker Start:29-Sep-2019 Instruction Type:Patient Education How to access health informa tion online - Detail Indication:Non-smoker Start:29-Sep-2019 Instruction Type:Patient Education Patient Instructions Indication:Non-smoker Start:29-Sep-2019 Instruction Type:Provider Instructions for Treatment How to access health informa tion online Indication:BMI 34.0-34.9,adult Start:22-May-2017 Instruction Type:Patient Education How to access health informa tion online - Detail Indication:BMI 34.0-34.9,adult Start:22-May-2017 Instruction Type:Patient Education Patient Instructions Indication:Fever and chills Start:22-May-2017 Instruction Type:Provider Instructions for Treatment How to access health informa tion online Indication:BMI 35.0-35.9,adult Start:12-May-2017 Instruction Type:Patient Education How to access health informa tion online - Detail Indication:BMI 35.0-35.9,adult Start:12-May-2017 Instruction Type:Patient Education Patient Instructions Indication:BMI 35.0-35.9,adult Start:12-May-2017 Instruction Type:Provider Instructions for Treatment How to access health informa tion online Indication:Acute maxillary sinusitis, recurrence not specified Start:30-Jan-2016 Instruction Type:Patient Education How to access health informa tion online - Detail Indication:Acute maxillary sinusitis, recurrence not specified Start:30-Jan-2016 Instruction Type:Patient Education Patient Instructions Indication:Acute maxillary sinusitis, recurrence not specified Start:30-Jan-2016 Instruction Type:Provider Instructions for Treatment How to access health informa tion online Indication:Acute pharyngitis Start:26-Jan-2016 Instruction Type:Patient Education How to access health informa tion online - Detail Indication:Acute pharyngitis Start:26-Jan-2016 Instruction Type:Patient Education Patient Instructions Indication:Acute pharyngitis Start:26-Jan-2016 Instruction Type:Provider Instructions for Treatment How to access health informa tion online Indication:Annual physical exam Start:08-Nov-2015 Instruction Type:Patient Education How to access health informa tion online - Detail Indication:Annual physical exam Start:08-Nov-2015 Instruction Type:Patient Education Patient Instructions Indication:Annual physical exam Start:08-Nov-2015 Instruction Type:Provider Instructions for Treatment How to access health informa tion online Indication:Abnormal glucose tolerance test Start:04-Oct-2014 Instruction Type:Patient Education How to access health informa tion online - Detail Indication:Abnormal glucose tolerance test Start:04-Oct-2014 Instruction Type:Patient Education Patient Instructions Indication:Abnormal glucose tolerance test Start:04-Oct-2014 Instruction Type:Provider Instructions for Treatment How to access health informa tion online Indication:Abnormal glucose tolerance test Start:20-May-2014 Instruction Type:Patient Education How to access health informa tion online - Detail Indication:Abnormal glucose tolerance test Start:20-May-2014 Instruction Type:Patient Education Patient Instructions Indication:Abnormal glucose tolerance test Start:20-May-2014 Instruction Type:Provider Instructions for Treatment Patient Instructions Indication:Bronchitis, acute Start:28-Jan-2014 Instruction Type:Provider Instructions for Treatment Patient Instructions: wt los s and exercise Indication:Benign essential hypertension Start:24-Jun-2012 Instruction Type:Provider Instructions for Treatment Name Dates Details How to access health informa tion online Indication:BMI 34.0-34.9,adult Start:22-May-2017 Instruction Type:Patient Education How to access health informa tion online - Detail Indication:BMI 34.0-34.9,adult Start:22-May-2017 Instruction Type:Patient Education Patient Instructions Indication:Fever and chills Start:22-May-2017 Instruction Type:Provider Instructions for Treatment How to access health informa tion online Indication:BMI 35.0-35.9,adult Start:12-May-2017 Instruction Type:Patient Education How to access health informa tion online - Detail Indication:BMI 35.0-35.9,adult Start:12-May-2017 Instruction Type:Patient Education Patient Instructions Indication:BMI 35.0-35.9,adult Start:12-May-2017 Instruction Type:Provider Instructions for Treatment How to access health informa tion online Indication:Acute maxillary sinusitis, recurrence not specified Start:30-Jan-2016 Instruction Type:Patient Education How to access health informa tion online - Detail Indication:Acute maxillary sinusitis, recurrence not specified Start:30-Jan-2016 Instruction Type:Patient Education Patient Instructions Indication:Acute maxillary sinusitis, recurrence not specified Start:30-Jan-2016 Instruction Type:Provider Instructions for Treatment How to access health informa tion online Indication:Acute pharyngitis Start:26-Jan-2016 Instruction Type:Patient Education How to access health informa tion online - Detail Indication:Acute pharyngitis Start:26-Jan-2016 Instruction Type:Patient Education Patient Instructions Indication:Acute pharyngitis Start:26-Jan-2016 Instruction Type:Provider Instructions for Treatment How to access health informa tion online Indication:Annual physical exam Start:08-Nov-2015 Instruction Type:Patient Education How to access health informa tion online - Detail Indication:Annual physical exam Start:08-Nov-2015 Instruction Type:Patient Education Patient Instructions Indication:Annual physical exam Start:08-Nov-2015 Instruction Type:Provider Instructions for Treatment How to access health informa tion online Indication:Abnormal glucose tolerance test Start:04-Oct-2014 Instruction Type:Patient Education How to access health informa tion online - Detail Indication:Abnormal glucose tolerance test Start:04-Oct-2014 Instruction Type:Patient Education Patient Instructions Indication:Abnormal glucose tolerance test Start:04-Oct-2014 Instruction Type:Provider Instructions for Treatment How to access health informa tion online Indication:Abnormal glucose tolerance test Start:20-May-2014 Instruction Type:Patient Education How to access health informa tion online - Detail Indication:Abnormal glucose tolerance test Start:20-May-2014 Instruction Type:Patient Education Patient Instructions Indication:Abnormal glucose tolerance test Start:20-May-2014 Instruction Type:Provider Instructions for Treatment Patient Instructions Indication:Bronchitis, acute Start:28-Jan-2014 Instruction Type:Provider Instructions for Treatment Patient Instructions: wt los s and exercise Indication:Benign essential hypertension Start:24-Jun-2012 Instruction Type:Provider Instructions for Treatment Chief Complaint and Reason for Visit Chief Complaint CHECK UP INT LABS Reason for Visit Hyperlipemia Hypertriglyceridemia Thyroid enlargement Thyroid nodule Hypertension Encounter for wellness examination in adult Chief Complaint Admit Date SINUS ISSUES February 12, 2025 8:2 2am COUGH, SINUS INFECTION March 07, 2025 6: 24am Reason for Visit Admit Date Sinusitis chronic, sphenoidal January 8:22am Chief Complaint Admit Date COUGH, SINUS INFECTION March 07, 2025 6: 24am RT Knee Pain June 21, 2025 7:56am EORDERS June 21, 2025 9:08am Reason for Visit Admit Date Acute medial meniscal injury of right kn ee June 21, 2025 7:56am Osteoarthritis of knees, bilateral Septe [id number] 7:56am Right knee pain June 21, 2025 7:56am Hypertension June 21, 2025 7:56am Chief Complaint Admit Date COUGH, SINUS INFECTION March 07, 2025 6: 24am RT Knee Pain June 21, 2025 7:56am EORDERS June 21, 2025 9:08am RIGHT KNEE June 27, 2025 2:54pm Reason for Visit Admit Date Acute medial meniscal injury of right kn ee June 21, 2025 7:56am Osteoarthritis of knees, bilateral Septe mber 2024 7:56am Osteochondral defect of femoral condyle June 21, 2025 7:56am Right knee pain June 21, 2025 7:56am Hypertension June 21, 2025 7:56am Reason for Visit Admit Date Acute medial meniscal injury of right kn ee June 21, 2025 7:56am Osteoarthritis of knees, bilateral Septe [id number] 7:56am Osteochondral defect of femoral condyle June 21, 2025 7:56am Right knee pain June 21, 2025 7:56am Hypertension June 21, 2025 7:56am Osteochondral defect of femoral condyle June 27, 2025 2:54pm Other instability, right knee June 27, 2025 2:54pm Right knee DJD June 27, 2025 2:54pm Additional Source Comments (unrecognized sect ion and content) No Status Records FoundNo Status Records FoundNo Status Records Found INFORMATION SOURCE (unrecogn ized section and content) DATE CREATED AUTHOR 10/07/2019 [facility] ([place]) DATE CREATED AUTHOR AUTHOR'S ORGANIZ ATION 12/07/2024 [facility] DATE CREATED AUTHOR AUTHOR'S ORGANIZ ATION 07/02/2025 [facility] Care Teams (unrecognized sec tion and content) Team Status: Active Member Role Status Dates Dr. Jeanine Rock DO Family Provider Active Dr. Rich Sams MD Primary Care Provider Active Team Status: Inactive Member Role Status Dates Dr. Rich Sams MD Primary Care Provider, Attendi ng Provider Active Team Status: Inactive Member Role Status Dates Dr. Rich Sams MD Primary Care Pro vider, Attending Provider, Referring Provider Active Team Status: Inactive Member Role Status Dates Dr. Rich Sams MD Primary Care Provider Active Start: February 12, 2025 End: February 12, 2025 Dr. Rich Sams MD Referring Provider Active Start: February 12, 2025 End: February 12, 2025 Cheyenne LUCIANO, PA Attending Provider Active S tart: February 12, 2025 End: February 12, 2025 Team Status: Inactive Member Role Status Dates Dr. Rich Sams MD Primary Care Provider Active Start: March 07, 2025 End: March 07, 2025 Dr. Rich Sams MD Referring Provider Active Start: March 07, 2025 End: March 07, 2025 Romero LUCIANO PA Attending Provider Active Start: March 07, 2025 End: March 07, 2025 Team Status: Active Member Role/Relationship Status Dates Dr. Jeanine Rock DO Family Provider Active Dr. Rich Sams MD Primary Care Provider Active Team Status: Inactive Member Role/Relationship Status Dates Dr. Rich Sams MD Primary Care Provider Active Start: March 07, 2025 End: March 07, 2025 Dr. Rich Sams MD Referring Provider Active Start: March 07, 2025 End: March 07, 2025 Romero LUCIANO PA Attending Provider Active Start: March 07, 2025 End: March 07, 2025 Team Status: Inactive Member Role/Relationship Status Dates Dr. Rich Sams MD Primary Care Provider Active Start: June 21, 2025 End: June 21, 2025 Dr. Rich Sams MD Attending Provider Active Start: June 21, 2025 End: June 21, 2025 Team Status: Active Member Role/Relationship Status Dates Dr. Rich Sams MD Primary Care Provider Active Start: June 21, 2025 Dr. Rich Sams MD Attending Provider Active Start: June 21, 2025 Dr. Rich Sams MD Referring Provider Active Start: June 21, 2025 Team Status: Active Member Role/Relationship Status Dates Dr. Rich Sams MD Primary Care Provider Active Team Status: Inactive Member Role/Relationship Status Dates Dr. Rich Sams MD Primary Care Provider Active Start: June 27, 2025 End: June 27, 2025 Dr. Rich Sams MD Referring Provider Active Start: June 27, 2025 End: June 27, 2025 Dr. Jose See DO Attending Provider Active Start: June 27, 2025 End: June 27, 2025 Team Status: Inactive Member Role/Relationship Status Dates Dr. Rich Sams MD Primary Care Provider Active Start: June 21, 2025 End: June 21, 2025 Dr. Rich Sams MD Attending Provider Active Start: June 21, 2025 End: June 21, 2025 Dr. Rich Sams MD Referring Provider Active Start: June 21, 2025 End: June 21, 2025 Goals (unrecognized section and content) Goals may be documented in a n alternate section No data available for this sectionGoals may be documented in an alternate sectionGoals may be documented in an alternate sectionGoals may be documented in an alternate sectionGoals may be documented in an alternate section FOR RECORDS PERTAINING TO PATIENTS WHO ARE OR HAVE BEEN ENROLLED IN A CHEMICAL DEPENDENCY/SUBSTANCEABUSE PROGRAM, SOME INFORMATION MAY BE OMITTED. This clinical summary was aggregated from multiple sources. Caution should be exercised in using it in the provision of clinical care. This summary normalizes information from multiple sources, and as a consequence, information in this document may materially change the coding, format and clinical context of patient data. In addition, data may be omitted in some cases. CLINICAL DECISIONS SHOULD BE BASED ON THE PRIMARY CLINICAL RECORDS. [employer] provides no warranty or guarantee of the accuracy or completeness of information in this document.
--- NOTE | 2025-07-02 07:33 | MRI_ITS ---
PROCEDURE: LOWER EXT JOINT ONLY (ROUTINE) 07/02/2025 REASON FOR EXAM: RIGHT KNEE PAIN, RIGHT KNEE CONTUSION TECHNIQUE: Procedure Code: MRILEJ Modality: MR Procedure: LOWER EXT JOINT ONLY (ROUTINE) T1, T2, PD, multiplanar and multisequence images were obtained without IV contrast administration. COMPARISON: COMPARISON : June 21, 2025 x-ray FINDINGS: Bone Marrow: There is a 2.2 by 0.9 cm developing osteochondral defect in the medial femoral condyle with no free fragment. Cruciate ligaments: There is increased T2 signal and attenuation throughout the anterior cruciate ligament without laxity, grade 2 sprain. The posterior cruciate appears intact. Collateral ligaments: There is thickening and attenuation throughout the medial collateral ligament without laxity, grade 2 sprain. The lateral collateral ligament complex appears intact. Menisci: The lateral meniscus appears intact. There is a complex tear in the posterior horn and body of the medial meniscus with a horizontal component extending to the tibial surface, with extrusion. Extensor compartment: The distal quadriceps and patellar tendons appear intact. Effusion: There is a 5.6 by 1.1 cm Pierre's cyst. There is a large joint effusion. Plica are noted in the superior joint space. Cartilage: There is severe chondromalacia in the medial compartment. MRI/Lower Ext Joint Only (Routine) IMPRESSION: There is a 2.2 by 0.9 cm developing osteochondral defect in the medial femoral condyle with no free fragment. There is increased T2 signal and attenuation throughout the anterior cruciate l igament without laxity, grade 2 sprain. There is thickening and attenuation throughout the medial collateral ligament w ithout laxity, grade 2 sprain. There is a complex tear in the posterior horn and body of the medial meniscus w ith a horizontal component extending to the tibial surface, with extrusion. There is a 5.6 by 1.1 cm Pierre's cyst. There is a large joint effusion. Plica are noted in the superior joint space. There is severe chondromalacia in the medial compartment. Reading Location[facility]
== END | disposition home or self-care (01) ==
PROVIDERS: PCP Internal Medicine; Referring Provider Internal Medicine; Visit Provider Internal Medicine
DX: M25.561 Pain in right knee (principal); S83.8X1A Sprain of other specified parts of right knee, initial encounter; M95.8 Other specified acquired deformities of musculoskeletal system; X58.XXXA Exposure to other specified factors, initial encounter
CPT/HCPCS: 73721

== ENCOUNTER → 2025-08-19 | Outpatient (CLI) | payer OTHER, SELFPAY ==
--- NOTE | 2025-08-19 16:53 | US_ITS ---
PROCEDURE: US/Thyroid
== END | disposition home or self-care (01) ==
LOC: US 16:51
PROVIDERS: PCP Internal Medicine; Referring Provider Surgery; Visit Provider Surgery
DX: E04.1 Nontoxic single thyroid nodule (principal)
CPT/HCPCS: 76536

== ENCOUNTER → 2025-09-09 | Outpatient (CLI) | payer OTHER, SELFPAY ==
--- NOTE | 2025-09-09 09:45 | CYSPIN_PTH ---
PATIENT: MIGUELANGEL GALLAGHER LOC: [facility] U#:[id number] AGE/SX: 65/M ROOM: RE09/09/[address]: Dr. oBb Haley MD : 1960 BED: DIS: 09/09/2025 SPEC #: [id number] RECD: 09/09/25 10:51 STATUS: SEBASTIÁN REFreida #: [id number] DANIAL: 09/09/25 09:[address]: Bob Haley DEPT: CYTOLOGY RECD BY: Pablo Robison ENTERED: 09/09/25 11:45 SP TYPE: CYSPIN FL OTHR DR: Dr. Aminata Sams MD Tissues: A - Thyroid gland, NOS Procedures: Pap Stain (control) Special Stain Group II Diff Quik Stain (control) Cytospin Fluid Cytology Other HEADER OPERATION: Fine needle aspiration of right thyroid nodule PRE-OP DIAGNOSIS: Right thyroid nodule TISSUE SUBMITTED: A- Right thyroid nodule for cytology DIAGNOSIS CYTOLOGY A. Right thyroid, nodule, FNA (cytospin, smear x4): - Atypical cells of undetermined significance (TBS III). - Afirma testing submitted. (a separate report will follow). CYTOLOGY STUDY Slides are reviewed. CYTOLOGY GROSS A. Received is 30 ml of red cytolyt with particles and 4 slides labeled with the patient's name and and designated per the requisition as Right thyroid nodule. Submitted for cytology and cytospin. 09/09/2025 CPT: 86865 ADDENDUM ADDENDUM ADDENDUM ADDENDUM ADDENDUM ADDENDUM ADDENDUM ADDENDUM ADDENDUM 09/26/2025 11:01 ADDENDUM 09/26/2025 11:01 ADDENDUM 09/26/2025 11:01 ADDENDUM 09/26/2025 11:01 ADDENDUM 09/26/2025 11:01 AFIRMA RESULTS REPORT- Specimen A RESULTS INTERPRETATION: The result of this 6.5cm [place] III nodule A is Afirma GSC Suspicious which suggests a risk of cancer of approximately 50%. The risk of malignancy of a GSC Suspicious Afirma XA negative sample remains approximately 50%. Clinical correlation and surgical resection should be considered. Please see complete report in e-chart or EMR
== END | disposition home or self-care (01) ==
PROVIDERS: PCP Internal Medicine; Referring Provider Surgery; Visit Provider Surgery
DX: E04.1 Nontoxic single thyroid nodule (principal)
CPT/HCPCS: 88108; 88161; 88313

== ENCOUNTER → 2025-10-10 | Outpatient (CLI) | payer OTHER, SELFPAY ==
--- NOTE | 2025-10-10 16:36 | US_ITS ---
PROCEDURE: HEAD/NECK SOFT TISSUE 10/10/2025 REASON FOR EXAM: THYROID NODULES TECHNIQUE: Procedure Code: USH/N SOFT Modality: US Procedure: HEAD/NECK SOFT TISSUE COMPARISON: August 19, 2025 FINDINGS: Multiple bilateral lymph nodes are noted. The following are measured: Right neck zone 1 1.5 cm x 1.5 cm x 0.8 cm. Also on the right zone 3 2.0 cm x 1.3 cm x 0.6 cm. Also on the right zone 5 1.8 cm x 1.3 cm x 0.6 cm. Left neck zone 1 2.4 cm x 1.0 cm x 0.7 cm. Also on the left zone 5 2.4 cm x 2.3 cm x 1.0 cm. US/Head/Neck Soft Tissue IMPRESSION: Bilateral lymph node measurements as detailed above. Reading Location[facility]
== END | disposition home or self-care (01) ==
LOC: US 16:34
PROVIDERS: PCP Internal Medicine; Referring Provider Surgery; Visit Provider Surgery
DX: E04.2 Nontoxic multinodular goiter (principal)
CPT/HCPCS: 76536